=== PATIENT | female | born 1950 | race Caucasian/White ===

== ENCOUNTER 2019-09-11 16:24 | Inpatient (IN) | payer MEDICARE, OTHER ==
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
[~2019-09-11] VITALS: Ht 162.6 cm; Wt 100.2 kg
[~2019-09-11 16:24] MED LIST: ACET325T9 PO; ALBU2.5V8 IH; ASCO-72 PO; ASEN10TA9 SL; ATOR10TA60 PO; BISA10SU55 RC; BISA5TAB4 PO; CARB200T PO; CHOL2000 PO; CITA40TA5 PO; CLON0.5T4 PO; DEXT15DR10 OP; DEXT237L PO; DIVA500T4 PO; DOCU-109 PO; DOCU50CA11 PO; ESTR0.3T PO; FLUT10SP NS; FURO-68 PO; FURO80TA3 PO; FURO80TA72 PO; GABA-585 PO; GABA-586 PO; GABA300S PO; GUAI-40 PO; HALO100A2 IM; HALO5TAB IM; HALO5TAB PO; HALO5VIA2 IM; HYDR-2155 PO; HYDR-2678 PO; LEVE100020 PO; LEVE500T6 PO; LEVO25TA4 PO; LOPE2CAP PO; LOPE2CAP3 PO; LUBI8CAP4 PO; MAG-83 PO; MAGN24003 PO; MELA1TAB13 PO; MELA3TAB4 PO; MELO15TA23 PO; MENT118G TP; METH1TAB20 PO; METH29OI TP; MIRT15TA3 PO; MULT-245 PO; NYST15PO9 TP; OLAN5TAB3 PO; OMEP20CA16 PO; OMEP40CA2 PO; OXYC20TA35 PO; PANT40TA3 PO; POLY17PO5 PO; POTA20TA4 PO; POTA20TA84 PO; POTA40LI4 PO; QUET300T PO; RISP0.2519 PO; RISP1TAB43 PO; RISP2TAB33 PO; RISP3TAB23 PO; RISP4TAB35 PO; SERT50TA8 PO; SPIR50TA4 PO; SUCR1TAB35 PO; SULF5DRO OP; TOLN30CR2 TP; TRAZ150T49 PO; VIT1TABL32 PO
--- NOTE | 2019-09-11 16:55 | EKG ---
[address] [address] Test Date: 2019-09-11 Test Time: 16:48:31 Pat Name: ROBERTA MERLOS Department: Room: Gender: F Entry Level Financial Analyst: : 1950 Requested By: VANNESSA HUERTA Order Number: [id number] Reading MD: Measurements Intervals [place] Rate: 100 P: 48 HI: 144 QRS: 20 QRSD: 94 T: 25 QT: 342 QTc: 444 Interpretive Statements SINUS RHYTHM QRS(T) CONTOUR ABNORMALITY CONSIDER ANTEROLATERAL MYOCARDIAL DAMAGE POSSIBLY ABNORMAL ECG RI6.01 No previous ECG available for comparison
[2019-09-11 17:23] LABS: BASO # 0.1 x10^3/uL (0.0-0.2); BASO % 1 % (0-3); EOS # 0.1 x10^3/uL (0.0-0.7); EOS % 1 % (0-3); HEMATOCRIT 41.6 % (36.0-47.0); HEMOGLOBIN 13.8 g/dL (12.0-15.5); LYMPH % 28 % (24-48); MEAN CORPUSCULAR HEMOGLOBIN 32 pg (25-35); MEAN CORPUSCULAR HGB CONC 33 g/dL (31-37); MEAN CORPUSCULAR VOLUME 96 fL (79-100); MONO # 0.7 x10^3/uL (0.0-1.1); MONO % 10 % (0-9); NEUT # 4.3 x10^3uL (1.8-7.7); NEUT % 60 % (31-73); PLATELET COUNT 292 x10^3/uL (140-400); RED BLOOD COUNT 4.33 x10^6/uL (3.50-5.40); RED CELL DISTRIBUTION WIDTH 12.9 % (11.5-14.5); WHITE BLOOD COUNT 7.2 x10^3/uL (4.0-11.0)
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
[2019-09-11 18:15] LABS: CREATININE 0.9 mg/dL (0.6-1.0); GFR 62.1; POTASSIUM 3.9 mmol/L (3.5-5.1)
[2019-09-11 18:20] LABS: ALBUMIN 4.6 g/dL (3.4-5.0); ALBUMIN/GLOBULIN RATIO 1.1 (1.0-1.7); MAGNESIUM 1.9 mg/dL (1.8-2.4); TOTAL BILIRUBIN 0.3 mg/dL (0.2-1.0); TOTAL PROTEIN 8.8 g/dL (6.4-8.2)
[2019-09-11] MEDS ORDERED: HALO5SYR IM (18:51)
[2019-09-11] MEDS ORDERED: LEVO50TA5 PO (18:51)
[2019-09-11] MEDS ORDERED: AMYL1TAB PO (18:51)
[2019-09-11] MEDS ORDERED: FURO40TA4 PO (18:51)
[2019-09-11] MEDS ORDERED: POLY17PO5 PO (18:51)
[2019-09-11] MEDS ORDERED: DOCU-109 PO (18:51)
[2019-09-11] MEDS ORDERED: DICL100G18 TP (18:51)
[2019-09-11] MEDS ORDERED: ONDA4TAB7 PO (18:51)
[2019-09-11] MEDS ORDERED: FLUT9.9S NS (18:51)
[2019-09-11] MEDS ORDERED: AMIT50TA PO (18:51)
[2019-09-11] MEDS ORDERED: MONT10TA80 PO (18:51)
[2019-09-11] MEDS ORDERED: QUET400T7 PO (18:51)
[2019-09-11] MEDS ORDERED: POLY15DR27 OU (18:51)
[2019-09-11] MEDS ORDERED: DULO60CA6 PO (18:51)
[2019-09-11] MEDS ORDERED: DEXT30SU19 PO (18:51)
[2019-09-11] MEDS ORDERED: IPRA3AMP29 NEB (18:51)
[2019-09-11] MEDS ORDERED: MELO7.5T29 PO (18:51)
[2019-09-11] MEDS ORDERED: GABA-585 PO (18:51)
[2019-09-11] MEDS ORDERED: LORA-254 PO (18:51)
[2019-09-11] MEDS ORDERED: MAGNESIUM HYDROXIDE 2,400 MG/30 ML ORAL.SUSP. PO PRN (23:15)
[2019-09-11] MEDS ORDERED: METHYL SALICYLATE/MENTHOL TOPICAL OINTMENT 57GM TUBE. TP PRN (23:15)
[2019-09-11] MEDS ORDERED: LACT1CAP19 PO (23:44)
[2019-09-11] MEDS ORDERED: LUBI8CAP4 PO (23:44)
[2019-09-11] MEDS ORDERED: MAG HYDROX/AL HYDROX/SIMETH 30 ML ORAL.SUSP PO PRN (23:45)
[2019-09-11] MEDS ORDERED: [UNRECOGNIZED DRUG - OTHER] PO PRN (23:45)
[2019-09-11] MEDS ORDERED: NYSTATIN TOPICAL POWDER 15GM BOTTLE. TP PRN (23:45)
[2019-09-12] MEDS ORDERED: ALBUTEROL SULFATE 2.5 MG/3 ML NEBU. NEB PRN (00:15)
[2019-09-12] MEDS ORDERED: HALOPERIDOL LACT 5 MG/ML VIAL. IM PRN (00:15)
[2019-09-12 01:51] VITALS: BP 154/88
[2019-09-12 05:46] LABS: BACTERIA,URINE 0 /HPF (0-FEW); BILIRUBIN,URINE NEG (NEG); CLARITY,URINE CLEAR; COLOR,URINE YELLOW; GLUCOSE,URINE NEG (NEG); NITRITE,URINE NEG (NEG); RBC,URINE OCC /HPF (0-2); SQUAMOUS EPITHELIAL CELL,UR OCC /LPF; WBC,URINE OCC /HPF (0-4)
[2019-09-12 06:16] VITALS: BP 132/83
[2019-09-12] MEDS: PANTOPRAZOLE 40 MG TABLET. PO SCH (08:59)
[2019-09-12] MEDS ORDERED: LACTOBACILLUS RHAMNOSUS GG 1 CAPSULE. PO SCH (09:00)
[2019-09-12] MEDS: LORazepam 1 MG TABLET PO SCH ×4 (09:00→20:05)
[2019-09-12] MEDS: LACTOBACILLUS RHAMNOSUS GG 1 CAPSULE. PO SCH (09:00)
[2019-09-12] MEDS: FLUTICASONE 50MCG/NASAL SPRAY 16GM BOTTLE. NS SCH (09:00)
[2019-09-12] MEDS: ONDANSETRON ODT 4 MG TAB.RAPDIS PO SCH ×3 (09:00→16:26)
[2019-09-12] MEDS: DOCUSATE SODIUM 100 MG CAPSULE PO SCH ×2 (09:00→20:02)
[2019-09-12] MEDS: DICLOFENAC SODIUM 1% TOPICAL GEL 100GM TUBE. TP SCH ×3 (09:00→20:17)
[2019-09-12] MEDS: POLYVINYL ALCOHOL 1.4% OPHTH SOLUTION 15ML BOTTLE. OU SCH ×3 (09:00→20:02)
[2019-09-12] MEDS: MONTELUKAST 10 MG TABLET. PO SCH (09:01)
[2019-09-12] MEDS: DULoxetine HCL 30 MG CAPSULE.DR PO SCH (09:01)
[2019-09-12] MEDS: POTASSIUM CHLORIDE 20 MEQ TABLET.ER. PO SCH ×2 (09:01→20:02)
[2019-09-12] MEDS: MULTIVITAMIN I-VITE TABLET. PO SCH (09:01)
[2019-09-12] MEDS: POLYETHYLENE GLYCOL 3350 17 GM PACKET. PO SCH (09:01)
[2019-09-12] MEDS: MELOXICAM 7.5 MG TABLET PO SCH (09:01)
[2019-09-12] MEDS: FUROSEMIDE 40 MG TABLET PO SCH (09:01)
[2019-09-12] MEDS: CHOLECALCIFEROL (VITAMIN D3) 1,000 UNIT TABLET PO SCH (09:02)
[2019-09-12] MEDS: carBAMazepine 200 MG TABLET PO SCH ×2 (09:02→20:02)
[2019-09-12] MEDS: GABAPENTIN 100 MG CAPSULE. PO SCH (09:02)
[2019-09-12] MEDS: ASCORBIC ACID 500 MG TABLET PO SCH (09:02)
[2019-09-12] MEDS: LEVOTHYROXINE 50 MCG TABLET PO SCH (09:03)
[2019-09-12] MEDS ORDERED: guaiFENesin DM 200MG/20MG 10 ML SYRUP PO PRN (09:30)
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
[2019-09-12] MEDS ORDERED: HALOPERIDOL DECANOATE IM ER 100 MG/ML VIAL. IM SCH (15:00)
[2019-09-12 16:08] VITALS: BP 119/71
[2019-09-12 17:36] LABS: THYROID STIM HORMONE (TSH) 2.503 uIU/mL (0.358-3.740)
[2019-09-12] MEDS ORDERED: CHOLECALCIFEROL (VITAMIN D3) 50,000 UNIT CAPSULE PO SCH (18:30)
[2019-09-12] MEDS: QUEtiapine 100 MG TABLET. PO SCH (20:02)
[2019-09-12] MEDS: ATORVASTATIN CALCIUM 10 MG TABLET. PO SCH (20:02)
[2019-09-12] MEDS: AMITRIPTYLINE HCL 50 MG TABLET PO SCH (20:03)
[2019-09-12] MEDS: HALOPERIDOL DECANOATE IM ER 100 MG/ML VIAL. IM SCH (20:03)
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
--- NOTE | 2019-09-12 21:40 | PDOC ---
Exam Note: Liam Note: Please also refer to the separate dictated note~for this date of service dictated separately.~Patient seen individually. Discussed the patient with Nursing staff reviewed the chart.~Reviewed interim history and current functioning. Reviewed vital signs,~Labs/ Radiology~and current medications noted below. Continue current treatment with the changes noted in the dictated addendum note Assessment: Vital Signs/I&O: Vital Signs Date Time Temp Pulse Resp B/P (MAP) Pulse Ox O2 Delivery O2 Flow Rate FiO2 09/12/19 16:08 98.8 94 18 119/71 (87) 93 09/11/19 16:24 Room Air Labs: Laboratory Tests Test 09/12/19 05:00 09/12/19 05:25 Iron Level 45 ug/dL (50-170) L Total Iron Binding Capacity 349 ug/dL (250-450) Iron Saturation 13 % (15-34) L Urine Collection Type Unknown Urine Color Yellow Urine Clarity Clear Urine pH 6.5 Urine Specific [place] 1.020 Urine Protein Neg (NEG-TRACE) Urine Glucose (UA) Neg mg/dL (NEG) Urine Ketones (Stick) Neg mg/dL (NEG) Urine Blood Neg (NEG) Urine Nitrite Neg (NEG) Urine Bilirubin Neg (NEG) Urine Urobilinogen Dipstick 4.0 mg/dL (0.2 mg/dL) Urine Leukocyte Esterase Neg (NEG) Urine RBC Occ /HPF (0-2) Urine WBC Occ /HPF (0-4) Urine Squamous Epithelial Cells Occ /LPF Urine Bacteria 0 /HPF (0-FEW) Current Medications: Meds: Current Medications Medications (Trade) Dose Ordered Sig/Arden Route PRN Reason Start Time Stop Time Status Last Admin Dose Admin Lactobacillus Rhamnosus (Culturelle) 1 cap DAILY PO 09/12/19 09:00 09/16/19 09:01 09/12/19 09:00 Amitriptyline HCl (Elavil) 50 mg HS PO 09/12/19 21:00 09/12/19 20:03 Atorvastatin Calcium (Lipitor) 10 mg QHS PO 09/12/19 21:00 09/12/19 20:02 Carbamazepine (TEGretol) 200 mg BID PO 09/12/19 09:00 09/12/19 20:02 Docusate Sodium (Colace) 100 mg BID PO 09/12/19 09:00 09/12/19 20:02 Duloxetine HCl (Cymbalta) 90 mg DAILY PO 09/12/19 09:00 09/12/19 09:01 Furosemide (Lasix) 40 mg DAILY PO 09/12/19 09:00 09/12/19 09:01 Gabapentin (Neurontin) 100 mg DAILY PO 09/12/19 09:00 09/12/19 09:02 Levothyroxine Sodium (Synthroid) 50 mcg DAILYAC PO 09/12/19 07:30 09/12/19 09:03 Lorazepam (Ativan) 1 mg QID PO 09/12/19 09:00 09/12/19 20:05 Meloxicam (Mobic) 7.5 mg DAILY PO 09/12/19 09:00 09/12/19 09:01 Montelukast Sodium (Singulair) 10 mg DAILY PO 09/12/19 09:00 09/12/19 09:01 Pantoprazole Sodium (Protonix) 40 mg DAILYAC PO 09/12/19 07:30 09/12/19 08:59 Polyethylene Glycol (miraLAX) 17 gm DAILY PO 09/12/19 09:00 09/12/19 09:01 Artificial Tears (Artificial Tears) 1 drop TID OU 09/12/19 09:00 09/12/19 20:02 Potassium Chloride (Klor-Con) 20 meq BID PO 09/12/19 09:00 09/12/19 20:02 Multivitamins/ Minerals (I-Reyna) 1 tab DAILY PO 09/12/19 09:00 09/12/19 09:01 Ascorbic Acid (Vitamin C) 500 mg DAILY PO 09/12/19 09:00 09/12/19 09:02 Vitamin D (Vitamin D3) 2,000 unit DAILY PO 09/12/19 09:00 09/12/19 09:02 Ondansetron HCl (Zofran Odt) 4 mg TIDAC PO 09/12/19 07:30 09/12/19 16:26 Quetiapine Fumarate (SEROquel) 200 mg BID PO 09/12/19 21:00 09/12/19 20:02 Haloperidol Decanoate (Haldol Decanoate Im Extended Release) 100 mg Q4WK IM 09/12/19 21:00 09/12/19 20:03 I have reviewed the current psychotropics carefully including drug interactions. Risk benefit ratio favors no change other than as noted in my dictated progress note. Diagnosis: Problems: (1) Dementia with behavioral disturbance (2) Schizophrenia, schizo-affective type (3) Medical clearance for psychiatric admission (4) Anxiety disorder (5) Impulse control disorder (6) Schizophrenia, paranoid, chronic with acute exacerbation ANNMARIE ROMERO MD Sep 12, 2019 21:40
--- NOTE | 2019-09-12 21:41 | NUR ---
Nsg Note: Patient in room at time of medication administration and assessments. Patient was calm, compliant, flat, monotone and cooperative with cares. Patient kept asking, "can I go back to sleep yet?" No other notable behaviors at this time.
[2019-09-12 22:07] LABS: HEMOGLOBIN A1C 5.5 % (4.8-5.6)
[2019-09-13] MEDS ORDERED: traZODone 50 MG TABLET. PO PRN
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
[2019-09-13 06:28] VITALS: BP 130/85
[2019-09-13] MEDS: DULoxetine HCL 30 MG CAPSULE.DR PO SCH (08:55)
[2019-09-13] MEDS: MONTELUKAST 10 MG TABLET. PO SCH (08:55)
[2019-09-13] MEDS: GABAPENTIN 100 MG CAPSULE. PO SCH (08:55)
[2019-09-13] MEDS: FUROSEMIDE 40 MG TABLET PO SCH (08:55)
[2019-09-13] MEDS: MELOXICAM 7.5 MG TABLET PO SCH (08:56)
[2019-09-13] MEDS: QUEtiapine 100 MG TABLET. PO SCH (08:56)
[2019-09-13] MEDS: ONDANSETRON ODT 4 MG TAB.RAPDIS PO SCH ×3 (08:56→17:07)
[2019-09-13] MEDS: LORazepam 1 MG TABLET PO SCH ×4 (08:56→20:31)
[2019-09-13] MEDS: carBAMazepine 200 MG TABLET PO SCH ×2 (08:57→20:32)
[2019-09-13] MEDS: PANTOPRAZOLE 40 MG TABLET. PO SCH (08:57)
[2019-09-13] MEDS: LEVOTHYROXINE 50 MCG TABLET PO SCH (08:57)
[2019-09-13] MEDS: POTASSIUM CHLORIDE 20 MEQ TABLET.ER. PO SCH ×2 (08:57→20:32)
[2019-09-13] MEDS: POLYETHYLENE GLYCOL 3350 17 GM PACKET. PO SCH (08:57)
[2019-09-13] MEDS: POLYVINYL ALCOHOL 1.4% OPHTH SOLUTION 15ML BOTTLE. OU SCH ×2 (09:00→14:00)
[2019-09-13] MEDS: AMITIZA 8 MCG PO SCH (09:00)
[2019-09-13] MEDS: DOCUSATE SODIUM 100 MG CAPSULE PO SCH ×2 (09:00→20:32)
[2019-09-13] MEDS: DICLOFENAC SODIUM 1% TOPICAL GEL 100GM TUBE. TP SCH ×2 (09:00→14:00)
[2019-09-13] MEDS: FLUTICASONE 50MCG/NASAL SPRAY 16GM BOTTLE. NS SCH (09:00)
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
[2019-09-13] MEDS: MULTIVITAMIN I-VITE TABLET. PO SCH (11:51)
[2019-09-13] MEDS: LACTOBACILLUS RHAMNOSUS GG 1 CAPSULE. PO SCH (11:51)
[2019-09-13] MEDS: CHOLECALCIFEROL (VITAMIN D3) 1,000 UNIT TABLET PO SCH (11:51)
[2019-09-13] MEDS: ASCORBIC ACID 500 MG TABLET PO SCH (11:51)
[2019-09-13] MEDS: CHOLECALCIFEROL (VITAMIN D3) 50,000 UNIT CAPSULE PO SCH (11:52)
--- NOTE | 2019-09-13 13:04 | NUR ---
Patient has been calm, compliant, drowsy, and confused during this shift. She left breakfast early, complaining of not feeling well. She complained of an upset stomach and pain 8/10, but would not pinpoint where the pain is located. Patient oriented to self and in [place], she could not state the name of the hospital, the day/date, or that she was in hospital. She was withdrawn to bed until PT worked with her then she was up in the day room, sitting in her wheelchair, and very drowsy. Will continue to monitor and report to oncoming shift.
--- NOTE | 2019-09-13 15:16 | NUR ---
CECILY spoke to Salazar, Nurse at [facility], regarding pt. information for psychosocial. CECILY will update Salazar on 09/16/2019 after treatment team.
[2019-09-13 15:45] VITALS: BP 125/79
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
[2019-09-13] MEDS ORDERED: POLYVINYL ALCOHOL 1.4% OPHTH SOLUTION 15ML BOTTLE. OU PRN (17:00)
[2019-09-13] MEDS ORDERED: FLUTICASONE 50MCG/NASAL SPRAY 16GM BOTTLE. NS PRN (17:00)
[2019-09-13 19:07] LABS: THYROXINE 7.2 ug/dL (4.5-12.0)
[2019-09-13 19:27] LABS: CARBAM 5.7 mcg/mL (4.0-12.0)
[2019-09-13] MEDS: AMITRIPTYLINE HCL 50 MG TABLET PO SCH (20:32)
[2019-09-13] MEDS: ATORVASTATIN CALCIUM 10 MG TABLET. PO SCH (20:32)
[2019-09-13] MEDS: risperiDONE 1 MG TABLET. PO SCH (20:35)
--- NOTE | 2019-09-13 20:48 | NUR ---
PATIENT IS LOCATED IN PT ROOM AT TIME OF ASSESSMENT AND MEDICATION ADMINISTRATION. PATIENT IS FLAT BUT CALM AND COMPLIANT. PATIENT C/O SOME STOMACH PAIN. PT STATES SHE THINKS IT MAY BE GAS PAINS. PATIENT IS COMPLIANT WITH MEDICATIONS WHOLE WITH WATER. PT DID HAVE SOME DIFFICULTY SWALLOWING HER POTASSIUM. WHILE ASSESSING PATIENT THIS NURSE NOTICED THAT PATIENTS BLE ARE RED AND HOT TO THE TOUCH. PATIENT REPORTS PAIN AT THE SITE. PATIENT ADDED TO DR. VERNON'S LIST TOMORROW. PATIENT IS RESTING IN BED AT THIS TIME. WILL CONTINUE TO MONITOR.
--- NOTE | 2019-09-13 21:21 | PDOC ---
Exam Note: Liam Note: Please also refer to the separate dictated note~for this date of service dictated separately.~Patient seen individually. Discussed the patient with Nursing staff reviewed the chart.~Reviewed interim history and current functioning. Reviewed vital signs,~Labs/ Radiology~and current medications noted below. Continue current treatment with the changes noted in the dictated addendum note Assessment: Vital Signs/I&O: Vital Signs Date Time Temp Pulse Resp B/P (MAP) Pulse Ox O2 Delivery O2 Flow Rate FiO2 09/13/19 15:45 98.2 96 18 125/79 (94) 96 09/11/19 16:24 Room Air I & O 09/12/19 09/12/19 09/13/19 15:00 23:00 07:00 Intake Total 720 ml 580 ml Balance 720 ml 580 ml Labs: Laboratory Tests Test 09/13/19 09:40 Prothrombin Time 10.0 SEC (9.4-11.4) Prothrombin Time INR 1.0 (0.9-1.1) Ammonia 15 mcmol/L (11-34) Thyroxine (T4) 7.2 ug/dL (4.5-12.0) Total Triiodothyronine (TT3) 74 ng/dL (71-180) Carbamazepine (Tegretol) Level 5.7 mcg/mL (4.0-12.0) Carbamazepine Last Dose Date 09/11/19 Carbamazepine Last Dose Time 2100 Current Medications: Meds: Current Medications Medications (Trade) Dose Ordered Sig/Arden Route PRN Reason Start Time Stop Time Status Last Admin Dose Admin Vitamin D (Vitamin D3) 50,000 unit WEEKLY PO 09/13/19 12:00 09/13/19 11:52 Risperidone (RisperDAL) 1 mg QHS PO 09/13/19 21:00 09/13/19 20:35 I have reviewed the current psychotropics carefully including drug interactions. Risk benefit ratio favors no change other than as noted in my dictated progress note. Diagnosis: Problems: (1) Dementia with behavioral disturbance (2) Schizophrenia, schizo-affective type (3) Medical clearance for psychiatric admission (4) Anxiety disorder (5) Impulse control disorder (6) Schizophrenia, paranoid, chronic with acute exacerbation ANNMARIE ROMERO MD Sep 13, 2019 21:21
[2019-09-14] MEDS: LEVOTHYROXINE 50 MCG TABLET PO SCH (05:56)
[2019-09-14] MEDS: PANTOPRAZOLE 40 MG TABLET. PO SCH (05:56)
[2019-09-14 06:01] VITALS: BP 149/73
[2019-09-14] MEDS ORDERED: LUBIPROSTONE 8 MCG CAPSULE PO ONE (08:00)
[2019-09-14] MEDS: DULoxetine HCL 30 MG CAPSULE.DR PO SCH (08:25)
[2019-09-14] MEDS: LACTOBACILLUS RHAMNOSUS GG 1 CAPSULE. PO SCH (08:25)
[2019-09-14] MEDS: GABAPENTIN 100 MG CAPSULE. PO SCH (08:25)
[2019-09-14] MEDS: MELOXICAM 7.5 MG TABLET PO SCH (08:26)
[2019-09-14] MEDS: ASCORBIC ACID 500 MG TABLET PO SCH (08:26)
[2019-09-14] MEDS: LORazepam 1 MG TABLET PO SCH ×4 (08:26→20:43)
[2019-09-14] MEDS: FUROSEMIDE 40 MG TABLET PO SCH (08:26)
[2019-09-14] MEDS: DOCUSATE SODIUM 100 MG CAPSULE PO SCH ×2 (08:27→20:43)
[2019-09-14] MEDS: AMITIZA 8 MCG PO SCH (08:27)
[2019-09-14] MEDS: carBAMazepine 200 MG TABLET PO SCH ×2 (08:27→20:44)
[2019-09-14] MEDS: ONDANSETRON ODT 4 MG TAB.RAPDIS PO SCH ×3 (08:31→18:40)
[2019-09-14] MEDS: POLYETHYLENE GLYCOL 3350 17 GM PACKET. PO SCH (08:31)
[2019-09-14] MEDS: MULTIVITAMIN I-VITE TABLET. PO SCH (08:31)
[2019-09-14] MEDS: MONTELUKAST 10 MG TABLET. PO SCH (08:31)
[2019-09-14] MEDS: POTASSIUM CHLORIDE 20 MEQ TABLET.ER. PO SCH ×2 (08:32→20:43)
--- NOTE | 2019-09-14 10:59 | NUR ---
Patient calm but withdrawn in dining room at breakfast this morning. Patient requested to be "next" to get her morning medication. Patient cooperative, calm and compliant with medications. Patient observed to be crying in her room at around 1015. Nurse sat with patient and asked what was wrong, patient stated she was heartbroken and began sobbing loudly. She answered nurse and said she is heartbroken about her divorce that she estimates happened around 4 years ago. Nurse provided kleenex and adjusted patients bed per her request. Patient stated she wants to call her ex- but that she doesn't know the number. [facility] does not have the number in her file. Will continue to monitor.
--- NOTE | 2019-09-14 13:17 | NUR ---
Activity Therapy Assessment Completed based on notes, observation, and attempted interview. Therapist caught patient on her way to her room and asked to chat. Pt. agreed and had difficulty answering all the questions. In the middle, Pt. stated 'I am tired and want to lay down. Can we talk later?" Therapist complied and asked MILK TREATER to assist with putting Pt. to bed. Pt. uses a wheelchair to ambulate and needs support from others with ADLs and transitions. Pt. has been calm and compliant since admit but also drowsy, withdrawn, and disengaged with a flat affect. Pt. has reported having hallucinations, both audio and visual, as well. Pt. is from [facility] and states she 'thinks her is ' and she has 'four children' she talks to on the phone. Pt. was unable to recall her or children's names. Pt. is aware she is in [place] but needed reminders that she is in the hospital. Pt. was unable to state why she was admitted. Pt. recalled growing up with two siblings but was unsure if they were still alive. 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 Pt. does not recall her previous [facility] admission. Pt. seems to have little interest in activities or socializing with peers as she sleeps often and sits alone. Initial goal aimed to increase socialization and engagement: Pt. will participate in at least three Activity Therapy groups or individual sessions before discharge. Addendum: 09/29/19 at 1219 by JEFFREY FAUSTIN ACT Goal changed 09/29/2019: Pt. will participate in at least five Activity Therapy groups per week.
[2019-09-14 15:54] VITALS: BP 150/84
[2019-09-14] MEDS: risperiDONE 1 MG TABLET. PO SCH (20:43)
[2019-09-14] MEDS: AMITRIPTYLINE HCL 50 MG TABLET PO SCH (20:43)
[2019-09-14] MEDS: ATORVASTATIN CALCIUM 10 MG TABLET. PO SCH (20:43)
--- NOTE | 2019-09-14 21:48 | PDOC ---
Exam Note: Liam Note: Please also refer to the separate dictated note~for this date of service dictated separately.~Patient seen individually. Discussed the patient with Nursing staff reviewed the chart.~Reviewed interim history and current functioning. Reviewed vital signs,~Labs/ Radiology~and current medications noted below. Continue current treatment with the changes noted in the dictated addendum note Assessment: Vital Signs/I&O: Vital Signs Date Time Temp Pulse Resp B/P (MAP) Pulse Ox O2 Delivery O2 Flow Rate FiO2 09/14/19 15:54 98.2 92 16 150/84 (106) 97 09/14/19 06:01 Room Air I & O 09/13/19 09/13/19 09/14/19 15:00 23:00 07:00 Intake Total 720 ml 240 ml 240 ml Balance 720 ml 240 ml 240 ml Current Medications: Meds: Current Medications Medications (Trade) Dose Ordered Sig/Arden Route PRN Reason Start Time Stop Time Status Last Admin Dose Admin Carbamazepine (TEGretol) 400 mg HS PO 09/14/19 21:00 09/14/19 20:44 I have reviewed the current psychotropics carefully including drug interactions. Risk benefit ratio favors no change other than as noted in my dictated progress note. Diagnosis: Problems: (1) Dementia with behavioral disturbance (2) Schizophrenia, schizo-affective type (3) Anxiety disorder (4) Impulse control disorder (5) Schizophrenia, paranoid, chronic with acute exacerbation ANNMARIE ROMERO MD Sep 14, 2019 21:48
--- NOTE | 2019-09-14 23:20 | PN ---
DATE: 09/13/2019 PSYCHIATRIC PROGRESS NOTE This late entry 09/13/2019 covers the elements not covered in my initial note. SUBJECTIVE: I met with the patient in the evening of 09/13/2019. Per ELISABET Alcocer, the patient slept 10 hours previous night. The day before, she was hearing guns and seeing cats and dogs, but none of that was verbalized by her during the day to nursing staff or to me in the evening as I met with her at length. She was in bed, but intermittently psychotic. REVIEW OF SYSTEMS: Positive for tiredness. No CV, , pulmonary, eye system symptoms on review. MENTAL STATUS EXAM: Oriented to herself and situation. Speech has some latency, coherent. Abstraction fair, computation impaired, language function intact, attention span short. Mood and affect remains withdrawn, intermittently quite psychotic. LABORATORY DATA: Reviewed. IMPRESSION: Schizoaffective disorder, bipolar type, mixed with psychotic features; anxiety disorder, unspecified; impulse control disorder, unspecified. PLAN: Change Seroquel XR 400 mg at bedtime to Risperdal 1 mg at bedtime. Continue amitriptyline 50 mg at bedtime, Tegretol is 200 b.i.d. await the level, then adjust to reach therapeutic level. Continue Cymbalta 90 mg a day, Haldol Decanoate as before. Ativan 1 mg 4 times a day. Rest unchanged. MAN Allyssa ROMERO MD DR: KAMILLE/taya JOB#: [id number] / [id number]
--- NOTE | 2019-09-14 23:44 | NUR ---
Nsg Note: Patient was in room at time of medication administration and assessments. Patient was calm, compliant and cooperative. Patient was wandering the halls in wheelchair before bed. No other notable behaviors at this time.
[2019-09-15 06:18] VITALS: BP 132/84
[2019-09-15] MEDS ORDERED: LUBIPROSTONE 8 MCG CAPSULE PO ONE (08:00)
[2019-09-15] MEDS: LACTOBACILLUS RHAMNOSUS GG 1 CAPSULE. PO SCH (08:40)
[2019-09-15] MEDS: DULoxetine HCL 30 MG CAPSULE.DR PO SCH (08:40)
[2019-09-15] MEDS: LORazepam 1 MG TABLET PO SCH ×4 (08:41→19:57)
[2019-09-15] MEDS: ONDANSETRON ODT 4 MG TAB.RAPDIS PO SCH ×3 (08:41→17:14)
[2019-09-15] MEDS: PANTOPRAZOLE 40 MG TABLET. PO SCH (08:42)
[2019-09-15] MEDS: MULTIVITAMIN I-VITE TABLET. PO SCH (08:43)
[2019-09-15] MEDS: LEVOTHYROXINE 50 MCG TABLET PO SCH (08:43)
[2019-09-15] MEDS: POTASSIUM CHLORIDE 20 MEQ TABLET.ER. PO SCH ×2 (08:43→19:55)
[2019-09-15] MEDS: MELOXICAM 7.5 MG TABLET PO SCH (08:44)
[2019-09-15] MEDS: POLYETHYLENE GLYCOL 3350 17 GM PACKET. PO SCH (08:44)
[2019-09-15] MEDS: GABAPENTIN 100 MG CAPSULE. PO SCH (08:44)
[2019-09-15] MEDS: FUROSEMIDE 40 MG TABLET PO SCH (08:44)
[2019-09-15] MEDS: MONTELUKAST 10 MG TABLET. PO SCH (08:44)
[2019-09-15] MEDS: DOCUSATE SODIUM 100 MG CAPSULE PO SCH ×3 (08:45→19:59)
[2019-09-15] MEDS: carBAMazepine 200 MG TABLET PO SCH ×2 (08:45→19:57)
[2019-09-15] MEDS: ASCORBIC ACID 500 MG TABLET PO SCH (08:45)
[2019-09-15] MEDS: AMITIZA 8 MCG PO SCH (09:00)
--- NOTE | 2019-09-15 11:51 | NUR ---
WEEKLY ACTIVITY THERAPY NOTE Date of Admission: 09/11/2019 Date of AT Assessment: 09/14/2019 Goal aimed: to increase engagement and socialization Initial goal: Pt. will participate in at least three Activity Therapy groups or individual sessions before discharge. 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
--- NOTE | 2019-09-15 13:31 | NUR ---
Patient was in the hallway during morning rounding, took medications, allowed for morning assessment. Patient denies pain, said she was feeling anxious this morning, received scheduled Ativan. Patient denies pain at this time. Will continue to monitor.
[2019-09-15] MEDS: HYDROcodone/APAP 5/325MG 1 TAB TABLET PO PRN ×3 (14:02→21:10)
--- NOTE | 2019-09-15 14:31 | NUR ---
Patient approached the nurse and mentioned having a headache. Patient asked for her pain medication, PRN lortab given @1402. Patient is feeling much better, is wheeling down the hallway and singing. Will continue to monitor.
[2019-09-15 16:16] VITALS: BP 148/76
--- NOTE | 2019-09-15 17:30 | NUR ---
Patient mentioned to the nurse that she was in pain, asked for PRN lortab. This was given at 1716. Patient is now eating dinner, will continue to monitor.
[2019-09-15] MEDS: risperiDONE 1 MG TABLET. PO SCH (19:56)
[2019-09-15] MEDS: AMITRIPTYLINE HCL 50 MG TABLET PO SCH (19:57)
[2019-09-15] MEDS: ATORVASTATIN CALCIUM 10 MG TABLET. PO SCH (19:57)
[2019-09-15] MEDS: MAG HYDROX/AL HYDROX/SIMETH 30 ML ORAL.SUSP PO PRN (20:01)
[2019-09-15] MEDS: DICLOFENAC SODIUM 1% TOPICAL GEL 100GM TUBE. TP PRN (20:04)
--- NOTE | 2019-09-15 21:11 | NUR ---
Pt sitting in the day room at shift change. Pt with a flat affect, suspicious of medications when approached. Pt cooperative with assessment and compliant with medications after this nurse explained each medication and it's use. PRN Voltaren gel and PRN Hydrocodone administered for c/o bilateral knee pain.
--- NOTE | 2019-09-15 21:24 | PDOC ---
Exam Note: Liam Note: Please also refer to the separate dictated note~for this date of service dictated separately.~Patient seen individually. Discussed the patient with Nursing staff reviewed the chart.~Reviewed interim history and current functioning. Reviewed vital signs,~Labs/ Radiology~and current medications noted below. Continue current treatment with the changes noted in the dictated addendum note Assessment: Vital Signs/I&O: Vital Signs Date Time Temp Pulse Resp B/P (MAP) Pulse Ox O2 Delivery O2 Flow Rate FiO2 09/15/19 18:16 97 09/15/19 16:16 97.9 88 18 148/76 (100) Room Air I & O 09/14/19 09/14/19 09/15/19 15:00 23:00 07:00 Intake Total 720 ml 120 ml 240 ml Balance 720 ml 120 ml 240 ml Current Medications: Meds: Current Medications Medications (Trade) Dose Ordered Sig/Arden Route PRN Reason Start Time Stop Time Status Last Admin Dose Admin Carbamazepine (TEGretol) 200 mg DAILY PO 09/15/19 09:00 09/15/19 08:45 I have reviewed the current psychotropics carefully including drug interactions. Risk benefit ratio favors no change other than as noted in my dictated progress note. Diagnosis: Problems: (1) Dementia with behavioral disturbance (2) Schizophrenia, schizo-affective type (3) Anxiety disorder (4) Impulse control disorder (5) Schizophrenia, paranoid, chronic with acute exacerbation ANNMARIE ROMERO MD Sep 15, 2019 21:24
--- NOTE | 2019-09-15 23:21 | PN ---
DATE: 09/14/2019 PSYCHIATRIC PROGRESS NOTE This late entry 09/14/2019 covers elements not covered in my initial note. SUBJECTIVE: I met with the patient evening of 09/14/2019. Per ELISABET Mcelroy, the patient slept 8 hours previous night. She has been tearful, sobbing at times, misses her ex-, Niels and guilty that she should not have him. She talked to Niels on the telephone. Tegretol level is 5.7, on Tegretol 200 mg b.i.d. REVIEW OF SYSTEMS: Ambulation impaired, in wheelchair. No CV, , pulmonary, eye, ENT system symptoms on review. MENTAL STATUS EXAMINATION: Reasonably oriented. Speech has some latency, coherent. Abstraction fair, computation impaired, language function intact, attention span short. Mood and affect somewhat withdrawn, labile at times. LABORATORY DATA: Reviewed. IMPRESSION: Schizoaffective disorder, bipolar type, mixed with psychotic features. Rest unchanged. PLAN: Increase Tegretol to 200 mg a.m., 400 at bedtime. Check CBC, CMP, Tegretol level in 3 days since prior level is 5.7, subtherapeutic on 200 b.i.d. Maintain Haldol Decanoate, amitriptyline, Cymbalta, trazodone, along with Ativan and Risperdal. Adjust further as clinically indicated. MAN Allyssa ROMERO MD DR: KAMILLE/taya JOB#: [id number] / [id number]
[2019-09-16] MEDS: HYDROcodone/APAP 5/325MG 1 TAB TABLET PO PRN ×5 (03:29→21:27)
[2019-09-16 06:22] VITALS: BP 112/71
[2019-09-16] MEDS: DICLOFENAC SODIUM 1% TOPICAL GEL 100GM TUBE. TP PRN (07:59)
[2019-09-16] MEDS: GABAPENTIN 100 MG CAPSULE. PO SCH (07:59)
[2019-09-16] MEDS: ONDANSETRON ODT 4 MG TAB.RAPDIS PO SCH ×3 (08:00→17:32)
[2019-09-16] MEDS: DULoxetine HCL 30 MG CAPSULE.DR PO SCH (08:00)
[2019-09-16] MEDS: POTASSIUM CHLORIDE 20 MEQ TABLET.ER. PO SCH ×2 (08:00→19:33)
[2019-09-16] MEDS: LACTOBACILLUS RHAMNOSUS GG 1 CAPSULE. PO SCH (08:00)
[2019-09-16] MEDS ORDERED: LUBIPROSTONE 8 MCG CAPSULE PO ONE (08:00)
[2019-09-16] MEDS: carBAMazepine 200 MG TABLET PO SCH ×2 (08:00→19:33)
[2019-09-16] MEDS: MONTELUKAST 10 MG TABLET. PO SCH (08:00)
[2019-09-16] MEDS: DOCUSATE SODIUM 100 MG CAPSULE PO SCH ×2 (08:01→19:33)
[2019-09-16] MEDS: ASCORBIC ACID 500 MG TABLET PO SCH (08:01)
[2019-09-16] MEDS: PANTOPRAZOLE 40 MG TABLET. PO SCH (08:01)
[2019-09-16] MEDS: AMITIZA 8 MCG PO SCH (08:01)
[2019-09-16] MEDS: LORazepam 1 MG TABLET PO SCH ×4 (08:01→19:34)
[2019-09-16] MEDS: MELOXICAM 7.5 MG TABLET PO SCH (08:01)
[2019-09-16] MEDS: MULTIVITAMIN I-VITE TABLET. PO SCH (08:01)
[2019-09-16] MEDS: LEVOTHYROXINE 50 MCG TABLET PO SCH (08:01)
[2019-09-16] MEDS: FUROSEMIDE 40 MG TABLET PO SCH (08:02)
[2019-09-16] MEDS: POLYETHYLENE GLYCOL 3350 17 GM PACKET. PO SCH (08:02)
[2019-09-16] MEDS: NYSTATIN TOPICAL POWDER 15GM BOTTLE. TP SCH ×2 (13:00→19:32)
--- NOTE | 2019-09-16 13:46 | NUR ---
CECILY contacted Salazar, Nurse at [facility], to give him an update on pt. progress. Addendum: 09/16/19 at 1400 by JOSE TONY Pt. was present for treatment team.
--- NOTE | 2019-09-16 13:52 | NUR ---
Patient is alert and oriented x3. When asked why she is in the hospital, pt responds, "I don't know". Compliant with cares and medications. Pt told this nurse that she is has AIDs and is dying from it. Pt also told this nurse that Zane was done with her and she needed to leave. Pt is demanding, and impatient. Has asked for multiple things and wants it that instant. Pt is attention seeking, telling people that she is dying. Pt reports she has itching in groin and her bottom hurts, asking for powder. Pt has small yeasty rash in groin, nystatin powder ordered per Dr Hunt. Cream applied to buttocks crack for redness, pt had stool left in there which was most likely the cause of the pain and redness. Plan is to continue medication management and encourage participation in groups. WCTM.
[2019-09-16 15:52] VITALS: BP 123/66
[2019-09-16] MEDS: AMITRIPTYLINE HCL 50 MG TABLET PO SCH (19:33)
[2019-09-16] MEDS: ATORVASTATIN CALCIUM 10 MG TABLET. PO SCH (19:33)
[2019-09-16] MEDS: risperiDONE 1 MG TABLET. PO SCH (19:34)
--- NOTE | 2019-09-16 20:31 | PN ---
DATE: 09/15/2019 PSYCHIATRIC PROGRESS NOTE This late entry 09/15/2019 covers elements not covered in my initial note. SUBJECTIVE: Per ELISABET Fabian, the patient slept 6 hours previous night. She received pain medications at 2:00 p.m. since quite suspicious and paranoid of her medications. I met with her in the evening. REVIEW OF SYSTEMS: Ambulation impaired, in wheelchair. No CV, , pulmonary, eye system symptoms on review. MENTAL STATUS EXAM: Oriented to herself and situation. Speech has some latency, coherent. Abstraction fair, computation impaired, language function intact, attention span short. Mood and affect somewhat anxious, labile. LABORATORY DATA: Reviewed. IMPRESSION: Unchanged from initial note. Schizoaffective disorder, bipolar type, mixed with psychotic features. Rest unchanged. PLAN: No change from initial note. MAN Allyssa ROMERO MD DR: KAMILLE/taya JOB#: [id number] / [id number]
--- NOTE | 2019-09-16 21:25 | PDOC ---
Exam Note: Liam Note: Please also refer to the separate dictated note~for this date of service dictated separately.~Patient seen individually. Discussed the patient with Nursing staff reviewed the chart.~Reviewed interim history and current functioning. Reviewed vital signs,~Labs/ Radiology~and current medications noted below. Continue current treatment with the changes noted in the dictated addendum note Assessment: Vital Signs/I&O: Vital Signs Date Time Temp Pulse Resp B/P (MAP) Pulse Ox O2 Delivery O2 Flow Rate FiO2 09/16/19 17:33 98 09/16/19 15:52 98.0 81 20 123/66 (85) 09/15/19 16:16 Room Air I & O 09/15/19 09/15/19 09/16/19 15:00 23:00 07:00 Intake Total 960 ml 240 ml 240 ml Balance 960 ml 240 ml 240 ml Current Medications: Meds: Current Medications Medications (Trade) Dose Ordered Sig/Arden Route PRN Reason Start Time Stop Time Status Last Admin Dose Admin Nystatin (Nystop) 1 jessica BID TP 09/16/19 13:00 09/16/19 19:32 Risperidone (RisperDAL) 1.5 mg QHS PO 09/16/19 21:00 09/16/19 19:34 I have reviewed the current psychotropics carefully including drug interactions. Risk benefit ratio favors no change other than as noted in my dictated progress note. Diagnosis: Problems: (1) Dementia with behavioral disturbance (2) Schizophrenia, schizo-affective type (3) Anxiety disorder (4) Impulse control disorder (5) Schizophrenia, paranoid, chronic with acute exacerbation ANNMARIE ROMERO MD Sep 16, 2019 21:25
--- NOTE | 2019-09-17 02:40 | NUR ---
Last evening pt was tired and wanted to go to bed. She is well oriented and took meds without difficulty. PRN pain med given and she has been sleeping well. When asked why she is here she said she does not know but would like to find out.
[2019-09-17] MEDS: LEVOTHYROXINE 50 MCG TABLET PO SCH (05:46)
[2019-09-17] MEDS: HYDROcodone/APAP 5/325MG 1 TAB TABLET PO PRN ×5 (05:46→23:04)
[2019-09-17 06:02] VITALS: BP 134/81
[2019-09-17] MEDS ORDERED: LUBIPROSTONE 8 MCG CAPSULE PO ONE (08:00)
[2019-09-17] MEDS: FUROSEMIDE 40 MG TABLET PO SCH (08:24)
[2019-09-17] MEDS: PANTOPRAZOLE 40 MG TABLET. PO SCH (08:24)
[2019-09-17] MEDS: DULoxetine HCL 30 MG CAPSULE.DR PO SCH (08:24)
[2019-09-17] MEDS: ONDANSETRON ODT 4 MG TAB.RAPDIS PO SCH ×3 (08:24→17:11)
[2019-09-17] MEDS: MONTELUKAST 10 MG TABLET. PO SCH (08:25)
[2019-09-17] MEDS: AMITIZA 8 MCG PO SCH (08:25)
[2019-09-17] MEDS: ASCORBIC ACID 500 MG TABLET PO SCH (08:25)
[2019-09-17] MEDS: MULTIVITAMIN I-VITE TABLET. PO SCH (08:25)
[2019-09-17] MEDS: GABAPENTIN 100 MG CAPSULE. PO SCH (08:26)
[2019-09-17] MEDS: carBAMazepine 200 MG TABLET PO SCH ×2 (08:26→23:05)
[2019-09-17] MEDS: MELOXICAM 7.5 MG TABLET PO SCH (08:26)
[2019-09-17] MEDS: LORazepam 1 MG TABLET PO SCH ×4 (08:26→23:05)
[2019-09-17] MEDS: POTASSIUM CHLORIDE 20 MEQ TABLET.ER. PO SCH ×2 (08:26→23:04)
[2019-09-17] MEDS: DOCUSATE SODIUM 100 MG CAPSULE PO SCH ×2 (08:28→23:04)
[2019-09-17] MEDS: POLYETHYLENE GLYCOL 3350 17 GM PACKET. PO SCH (08:29)
[2019-09-17] MEDS: NYSTATIN TOPICAL POWDER 15GM BOTTLE. TP SCH ×2 (09:00→23:04)
--- NOTE | 2019-09-17 11:10 | NUR ---
Patient alert and oriented x3. Patient upset this morning when she wasn't the first patient to get her meds, did not like waiting her turn and began "choking" saying she needed her stomach meds. Pt given lortab for pain at 0928. Pt asked why people acted like they didn't want to give her medications. RN reminded patient her medicaton wasn't due until 0930 and it was being given at 0928. Pt stated this morning RN didn't give her medications right when she wanted them and thinks nursing does not want to give her medications. Later patient approached RN asking why she lied about giving the pain pill, states RN gave her a collapsed capsule instead of pain pill. RN informed patient that she received a tablet not a capsule. Pt called nurse a liar. Pt has been crying up and down the halls about seeing Zane being crucified and that God knows the nurse is a liar and didn't give her the right medications. PIA.
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
[2019-09-17 16:06] VITALS: BP 127/80
--- NOTE | 2019-09-17 17:42 | NUR ---
Patient repeatedly coughing at dinner, came out to nursing station demanding that RN give her the stomach pill she needs. This was already administered but patient states RN is lying again and she didn't get it. Pt states she will keep coughing until she gets her pill, patient was directed to her room.
--- NOTE | 2019-09-17 22:05 | PDOC ---
Exam Note: Liam Note: Please also refer to the separate dictated note~for this date of service dictated separately.~Patient seen individually. Discussed the patient with Nursing staff reviewed the chart.~Reviewed interim history and current functioning. Reviewed vital signs,~Labs/ Radiology~and current medications noted below. Continue current treatment with the changes noted in the dictated addendum note Assessment: Vital Signs/I&O: Vital Signs Date Time Temp Pulse Resp B/P (MAP) Pulse Ox O2 Delivery O2 Flow Rate FiO2 09/17/19 17:11 97 09/17/19 16:06 98.0 92 18 127/80 (96) 09/17/19 05:46 Room Air I & O 09/16/19 09/16/19 09/17/19 15:00 23:00 07:00 Intake Total 720 ml 120 ml Balance 720 ml 120 ml Current Medications: I have reviewed the current psychotropics carefully including drug interactions. Risk benefit ratio favors no change other than as noted in my dictated progress note. Diagnosis: Problems: (1) Dementia with behavioral disturbance (2) Schizophrenia, schizo-affective type (3) Hypokalemia due to inadequate potassium intake (4) Hypokalemia (5) Medical clearance for psychiatric admission (6) Anxiety disorder (7) Impulse control disorder (8) Schizophrenia, paranoid, chronic with acute exacerbation ANNMARIE ROMERO MD Sep 17, 2019 22:05
[2019-09-17] MEDS: AMITRIPTYLINE HCL 50 MG TABLET PO SCH (23:03)
[2019-09-17] MEDS: ATORVASTATIN CALCIUM 10 MG TABLET. PO SCH (23:04)
[2019-09-17] MEDS: risperiDONE 1 MG TABLET. PO SCH (23:05)
--- NOTE | 2019-09-18 00:01 | NUR ---
At meds pass pt refused all meds later on she did request and took them. She said we are going to kill her and that she has aids and has been smearing her blood all over the hospital so we would get sick and . She also said that Zane And God are staying in her room tonight. Extra blanket and pillow provided.
[2019-09-18] MEDS: HYDROcodone/APAP 5/325MG 1 TAB TABLET PO PRN ×2 (05:46→13:01)
--- NOTE | 2019-09-18 05:49 | NUR ---
Pt has been awake most of night. PRN pain med given
[2019-09-18 06:31] VITALS: BP 138/82
[2019-09-18] MEDS: ASCORBIC ACID 500 MG TABLET PO SCH (08:28)
[2019-09-18] MEDS: GABAPENTIN 100 MG CAPSULE. PO SCH (08:28)
[2019-09-18] MEDS: MONTELUKAST 10 MG TABLET. PO SCH (08:28)
[2019-09-18] MEDS: DULoxetine HCL 30 MG CAPSULE.DR PO SCH (08:29)
[2019-09-18] MEDS: risperiDONE 1 MG TABLET. PO SCH ×2 (08:29→16:49)
[2019-09-18] MEDS: MELOXICAM 7.5 MG TABLET PO SCH (08:29)
[2019-09-18] MEDS: ONDANSETRON ODT 4 MG TAB.RAPDIS PO SCH ×3 (08:29→16:49)
[2019-09-18] MEDS: DOCUSATE SODIUM 100 MG CAPSULE PO SCH ×2 (08:30→19:30)
[2019-09-18] MEDS: LORazepam 1 MG TABLET PO SCH ×4 (08:30→19:29)
[2019-09-18] MEDS: carBAMazepine 200 MG TABLET PO SCH ×2 (08:30→19:28)
[2019-09-18] MEDS: PANTOPRAZOLE 40 MG TABLET. PO SCH (08:30)
[2019-09-18] MEDS: MULTIVITAMIN I-VITE TABLET. PO SCH (08:30)
[2019-09-18] MEDS: FUROSEMIDE 40 MG TABLET PO SCH (08:30)
[2019-09-18] MEDS: POTASSIUM CHLORIDE 20 MEQ TABLET.ER. PO SCH ×2 (08:30→19:29)
[2019-09-18] MEDS: LEVOTHYROXINE 50 MCG TABLET PO SCH (08:30)
[2019-09-18] MEDS: POLYETHYLENE GLYCOL 3350 17 GM PACKET. PO SCH (08:33)
[2019-09-18] MEDS: NYSTATIN TOPICAL POWDER 15GM BOTTLE. TP SCH ×2 (08:34→19:30)
[2019-09-18 09:42] LABS: BASO # 0.1 x10^3/uL (0.0-0.2); BASO % 1 % (0-3); EOS # 0.1 x10^3/uL (0.0-0.7); EOS % 2 % (0-3); HEMATOCRIT 38.1 % (36.0-47.0); HEMOGLOBIN 12.6 g/dL (12.0-15.5); LYMPH # 1.7 x10^3/uL (1.0-4.8); LYMPH % 27 % (24-48); MEAN CORPUSCULAR HEMOGLOBIN 31 pg (25-35); MEAN CORPUSCULAR HGB CONC 33 g/dL (31-37); MEAN CORPUSCULAR VOLUME 95 fL (79-100); MONO # 0.7 x10^3/uL (0.0-1.1); MONO % 10 % (0-9); NEUT # 3.8 x10^3uL (1.8-7.7); NEUT % 61 % (31-73); PLATELET COUNT 317 x10^3/uL (140-400); RED BLOOD COUNT 4.02 x10^6/uL (3.50-5.40); RED CELL DISTRIBUTION WIDTH 12.7 % (11.5-14.5); WHITE BLOOD COUNT 6.3 x10^3/uL (4.0-11.0)
[2019-09-18 09:52] LABS: ALBUMIN/GLOBULIN RATIO 1.1 (1.0-1.7); CALCIUM 8.9 mg/dL (8.5-10.1); CREATININE 0.7 mg/dL (0.6-1.0); POTASSIUM 3.7 mmol/L (3.5-5.1); TOTAL BILIRUBIN 0.2 mg/dL (0.2-1.0); TOTAL PROTEIN 7.7 g/dL (6.4-8.2)
[2019-09-18] MEDS: AMITIZA 8 MCG PO SCH (12:58)
[2019-09-18] MEDS ORDERED: LUBIPROSTONE 8 MCG CAPSULE PO ONE (13:00)
--- NOTE | 2019-09-18 14:46 | NUR ---
Pt has been calm and cooperative so far this shift. Pt was a little tearful right before lunch but was redirected. Pt has been compliant with all medications this shift. Pt was given PRN Lortab this afternoon. This afternoon, pt has been stating the she is waiting for Zane to come, that he'll be coming soon, that she ended the world and we'll be sorry, etc. Pt appears riihol-ib-ihzi with these statements. She does not say that she hears any voices. Jessica has been propelling herself in the hallway in a wheelchair.
[2019-09-18 15:52] LABS: CARBAM 9.8 mcg/mL (4.0-12.0)
[2019-09-18 16:01] VITALS: BP 110/72
[2019-09-18] MEDS: ATORVASTATIN CALCIUM 10 MG TABLET. PO SCH (19:29)
[2019-09-18] MEDS: AMITRIPTYLINE HCL 50 MG TABLET PO SCH (19:29)
--- NOTE | 2019-09-18 21:25 | PN ---
DATE: 09/16/2019 PSYCHIATRIC PROGRESS NOTE This late entry 09/16/2019 covers elements not covered in my initial note. SUBJECTIVE: I met with the patient evening of 09/16/2019 and staffed at treatment team meeting with the entire team earlier in the day. The patient attended the treatment team meeting, discussed her diagnosis. Psychotropic medication changes, discharge plans. Appetite is 50%, sleeping average 7 hours, slept 3-3/4 hours previous night, resistive to meds at times, somewhat flat, withdrawn, not attending groups. She has been religiously preoccupied, talking about Zane and being the only person who knows everything. She feels she has a brain tumor or infection accounting for her symptoms REVIEW OF SYSTEMS: Ambulation impaired, in wheelchair. No CV, , pulmonary, eye system symptoms on review. She has vague somatic symptoms. MENTAL STATUS EXAM: Reasonably oriented. Speech is coherent, abstraction fair, computation impaired, language function intact, attention span short. Mood and affect remains labile, anxious, paranoid. LABORATORY DATA: Reviewed. IMPRESSION: Schizoaffective disorder, bipolar type, mixed with psychotic features. PLAN: We will discontinue the IM Haldol p.r.n., increase Risperdal from 1 mg at bedtime to 1.5 mg at bedtime, Haldol Decanoate 100 mg IM every 4 weeks. Maintain Elavil 50 mg at bedtime, Tegretol 200 a.m. and 400 at bedtime. Repeat level on 09/18/2019. Ativan q.i.d., trazodone. Rest unchanged. ANNMARIE ROMERO MD DR: KAMILLE/taya JOB#: [id number] / [id number]
--- NOTE | 2019-09-18 21:44 | PDOC ---
Exam Note: Liam Note: Please also refer to the separate dictated note~for this date of service dictated separately.~Patient seen individually. Discussed the patient with Nursing staff reviewed the chart.~Reviewed interim history and current functioning. Reviewed vital signs,~Labs/ Radiology~and current medications noted below. Continue current treatment with the changes noted in the dictated addendum note Assessment: Vital Signs/I&O: Vital Signs Date Time Temp Pulse Resp B/P (MAP) Pulse Ox O2 Delivery O2 Flow Rate FiO2 09/18/19 16:01 97.1 87 16 110/72 (85) 99 09/18/19 14:04 Room Air I & O 09/17/19 09/17/19 09/18/19 15:00 23:00 07:00 Intake Total 840 ml 600 ml Balance 840 ml 600 ml Labs: Laboratory Tests Test 09/18/19 09:30 White Blood Count 6.3 x10^3/uL (4.0-11.0) Red Blood Count 4.02 x10^6/uL (3.50-5.40) Hemoglobin 12.6 g/dL (12.0-15.5) Hematocrit 38.1 % (36.0-47.0) Mean Corpuscular Volume 95 fL (79-100) Mean Corpuscular Hemoglobin 31 pg (25-35) Mean Corpuscular Hemoglobin Concent 33 g/dL (31-37) Red Cell Distribution Width 12.7 % (11.5-14.5) Platelet Count 317 x10^3/uL (140-400) Neutrophils (%) (Auto) 61 % (31-73) Lymphocytes (%) (Auto) 27 % (24-48) Monocytes (%) (Auto) 10 % (0-9) H Eosinophils (%) (Auto) 2 % (0-3) Basophils (%) (Auto) 1 % (0-3) Neutrophils # (Auto) 3.8 x10^3uL (1.8-7.7) Lymphocytes # (Auto) 1.7 x10^3/uL (1.0-4.8) Monocytes # (Auto) 0.7 x10^3/uL (0.0-1.1) Eosinophils # (Auto) 0.1 x10^3/uL (0.0-0.7) Basophils # (Auto) 0.1 x10^3/uL (0.0-0.2) Sodium Level 134 mmol/L (136-145) L Potassium Level 3.7 mmol/L (3.5-5.1) Chloride Level 96 mmol/L (98-107) L Carbon Dioxide Level 27 mmol/L (21-32) Anion Gap 11 (6-14) Blood Urea Nitrogen 7 mg/dL (7-20) Creatinine 0.7 mg/dL (0.6-1.0) Estimated GFR (Cockcroft-Gault) 83.0 BUN/Creatinine Ratio 10 (6-20) Glucose Level 117 mg/dL (70-99) H Calcium Level 8.9 mg/dL (8.5-10.1) Total Bilirubin 0.2 mg/dL (0.2-1.0) Aspartate Amino Transferase (AST) 16 U/L (15-37) Alanine Aminotransferase (ALT) 23 U/L (14-59) Alkaline Phosphatase 91 U/L (46-116) Total Protein 7.7 g/dL (6.4-8.2) Albumin 4.0 g/dL (3.4-5.0) Albumin/Globulin Ratio 1.1 (1.0-1.7) Carbamazepine (Tegretol) Level 9.8 mcg/mL (4.0-12.0) Carbamazepine Last Dose Date Unk Carbamazepine Last Dose Time Unk Current Medications: Meds: Current Medications Medications (Trade) Dose Ordered Sig/Arden Route PRN Reason Start Time Stop Time Status Last Admin Dose Admin Duloxetine HCl (Cymbalta) 30 mg DAILY PO 09/18/19 09:00 09/18/19 08:29 Risperidone (RisperDAL) 1 mg 0900,1700 PO 09/18/19 09:00 09/18/19 16:49 I have reviewed the current psychotropics carefully including drug interactions. Risk benefit ratio favors no change other than as noted in my dictated progress note. Diagnosis: Problems: (1) Dementia with behavioral disturbance (2) Schizophrenia, schizo-affective type (3) Anxiety disorder (4) Impulse control disorder (5) Schizophrenia, paranoid, chronic with acute exacerbation ANNMARIE ROMERO MD Sep 18, 2019 21:43
[2019-09-18] MEDS: ACETAMINOPHEN 325 MG TABLET PO PRN (23:01)
[2019-09-19] MEDS: HYDROcodone/APAP 5/325MG 1 TAB TABLET PO PRN ×5 (00:34→20:15)
--- NOTE | 2019-09-19 00:48 | NUR ---
Nursing Note The patient was located in the day room for her assessment and medication pass. The patient took her medication whole. The patient was very defiant this shift. The patient was initially refusing to take all of her medications but after having a discussion about the need to take her medications as prescribed the patient did take all of her medication. The patient requested PRN Tylenol and received it @ 2301. The patient stated that the Tylenol was ineffective and requested PRN Hydrocodone. The patient received PRN Hydrocodone@ 0030. The patient is currently awake in the day room.
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
[2019-09-19 05:49] VITALS: BP 135/80
--- NOTE | 2019-09-19 06:26 | NUR ---
Nursing Note The patient requested PRN hydrocodone@ 0600 and received PRN Hydrocodone per PRN order.
[2019-09-19] MEDS ORDERED: LUBIPROSTONE 8 MCG CAPSULE PO ONE (08:00)
[2019-09-19] MEDS: POTASSIUM CHLORIDE 20 MEQ TABLET.ER. PO SCH ×2 (08:15→20:10)
[2019-09-19] MEDS: MELOXICAM 7.5 MG TABLET PO SCH (08:15)
[2019-09-19] MEDS: POLYETHYLENE GLYCOL 3350 17 GM PACKET. PO SCH (08:15)
[2019-09-19] MEDS: LEVOTHYROXINE 50 MCG TABLET PO SCH (08:16)
[2019-09-19] MEDS: ONDANSETRON ODT 4 MG TAB.RAPDIS PO SCH ×3 (08:16→16:38)
[2019-09-19] MEDS: ASCORBIC ACID 500 MG TABLET PO SCH (08:16)
[2019-09-19] MEDS: MONTELUKAST 10 MG TABLET. PO SCH (08:16)
[2019-09-19] MEDS: FUROSEMIDE 40 MG TABLET PO SCH (08:16)
[2019-09-19] MEDS: PANTOPRAZOLE 40 MG TABLET. PO SCH (08:17)
[2019-09-19] MEDS: DULoxetine HCL 30 MG CAPSULE.DR PO SCH (08:17)
[2019-09-19] MEDS: DOCUSATE SODIUM 100 MG CAPSULE PO SCH ×2 (08:17→20:10)
[2019-09-19] MEDS: carBAMazepine 200 MG TABLET PO SCH ×2 (08:17→20:10)
[2019-09-19] MEDS: AMITIZA 8 MCG PO SCH (08:18)
[2019-09-19] MEDS: risperiDONE 1 MG TABLET. PO SCH ×2 (08:18→16:38)
[2019-09-19] MEDS: LORazepam 1 MG TABLET PO SCH ×4 (08:19→20:10)
[2019-09-19] MEDS: MULTIVITAMIN I-VITE TABLET. PO SCH (08:19)
[2019-09-19] MEDS: GABAPENTIN 100 MG CAPSULE. PO SCH (08:19)
[2019-09-19] MEDS: NYSTATIN TOPICAL POWDER 15GM BOTTLE. TP SCH ×2 (09:00→20:09)
[2019-09-19 16:10] VITALS: BP 106/73
[2019-09-19] MEDS ORDERED: traZODone 100 MG TABLET. PO PRN (17:45)
--- NOTE | 2019-09-19 18:25 | NUR ---
Patient was calm, attention seeking, medication compliant, and disorganized for mos tof this shift. After lunch, patient was near the unit entrance, crying very loudly. When asked why she was crying, she stated 'Because I love Zane so much'. Patient asked to go to her room because she was disturbing other patients. In her room, patient put herself on the floor in a kneeling position and said she was confessing. After about an hour, she was repeatedly calling out 'help'. Patient was assisted into her wheelchair. Patient had several complaints of pain throughout the shift; prn medications provided per eMAR. Will continue to monitor.
[2019-09-19] MEDS: ATORVASTATIN CALCIUM 10 MG TABLET. PO SCH (20:10)
[2019-09-19] MEDS: AMITRIPTYLINE HCL 50 MG TABLET PO SCH (20:10)
[2019-09-19] MEDS: traZODone 100 MG TABLET. PO SCH (20:10)
--- NOTE | 2019-09-19 21:14 | NUR ---
Pt self-propelling in w/c in the hallway at shift change. Pt calm, singing to herself, interactive. Pt cooperative with assessment and compliant with medications administered whole. PRN Hydrocodone administered for c/o severe back pain @2014.
--- NOTE | 2019-09-19 21:26 | PDOC ---
Exam Note: Liam Note: Please also refer to the separate dictated note~for this date of service dictated separately.~Patient seen individually. Discussed the patient with Nursing staff reviewed the chart.~Reviewed interim history and current functioning. Reviewed vital signs,~Labs/ Radiology~and current medications noted below. Continue current treatment with the changes noted in the dictated addendum note Assessment: Vital Signs/I&O: Vital Signs Date Time Temp Pulse Resp B/P (MAP) Pulse Ox O2 Delivery O2 Flow Rate FiO2 09/19/19 21:15 97 09/19/19 18:02 18 Room Air 09/19/19 16:10 97.9 98 106/73 (84) I & O 09/18/19 09/18/19 09/19/19 15:00 23:00 07:00 Intake Total 480 ml 480 ml 240 ml Balance 480 ml 480 ml 240 ml Current Medications: Meds: Current Medications Medications (Trade) Dose Ordered Sig/Arden Route PRN Reason Start Time Stop Time Status Last Admin Dose Admin Trazodone HCl (Desyrel) 100 mg QHS PO 09/19/19 21:00 09/19/19 20:10 I have reviewed the current psychotropics carefully including drug interactions. Risk benefit ratio favors no change other than as noted in my dictated progress note. Diagnosis: Problems: (1) Dementia with behavioral disturbance (2) Schizophrenia, schizo-affective type (3) Anxiety disorder (4) Impulse control disorder (5) Schizophrenia, paranoid, chronic with acute exacerbation ANNMARIE ROMERO MD Sep 19, 2019 21:26
--- NOTE | 2019-09-19 23:53 | PN ---
DATE: 09/18/2019 PSYCHIATRIC PROGRESS NOTE This late entry 09/18/2019 covers elements not covered in my initial note. SUBJECTIVE: I met with the patient in the evening. The patient slept 1-1/2 hours previous night per ELISABET Jimenez. She has been religiously preoccupied, paranoid, delusional, waiting for Zane, refusing medication, refused amitriptyline, took it later, talking to Zane more than before. REVIEW OF SYSTEMS: Ambulation impaired, in wheelchair. No CV, , pulmonary, eye system symptoms on review. MENTAL STATUS EXAM: Oriented to herself and situation. Speech is coherent, abstraction fair, computation impaired, language function intact, attention span short. She is quite psychotic, but we have adjusted the Risperdal. We will wait and see before increasing further. LABORATORY DATA: Reviewed. IMPRESSION: Unchanged from initial note. PLAN: No change from initial note. MAN Allyssa ROMERO MD DR: KAMILLE/taya JOB#: [id number] / [id number]
[2019-09-20] MEDS: HYDROcodone/APAP 5/325MG 1 TAB TABLET PO PRN ×3 (05:13→21:15)
[2019-09-20 05:55] VITALS: BP 100/63
[2019-09-20] MEDS: DULoxetine HCL 30 MG CAPSULE.DR PO SCH (07:53)
[2019-09-20] MEDS: carBAMazepine 200 MG TABLET PO SCH ×2 (07:53→21:14)
[2019-09-20] MEDS: MONTELUKAST 10 MG TABLET. PO SCH (07:53)
[2019-09-20] MEDS: MULTIVITAMIN I-VITE TABLET. PO SCH (07:53)
[2019-09-20] MEDS: FUROSEMIDE 40 MG TABLET PO SCH (07:53)
[2019-09-20] MEDS: LEVOTHYROXINE 50 MCG TABLET PO SCH (07:54)
[2019-09-20] MEDS: PANTOPRAZOLE 40 MG TABLET. PO SCH (07:54)
[2019-09-20] MEDS: ASCORBIC ACID 500 MG TABLET PO SCH (07:54)
[2019-09-20] MEDS: ONDANSETRON ODT 4 MG TAB.RAPDIS PO SCH ×3 (07:54→17:12)
[2019-09-20] MEDS: POTASSIUM CHLORIDE 20 MEQ TABLET.ER. PO SCH ×2 (07:54→21:15)
[2019-09-20] MEDS: MELOXICAM 7.5 MG TABLET PO SCH (07:54)
[2019-09-20] MEDS: AMITIZA 8 MCG PO SCH (07:55)
[2019-09-20] MEDS: CHOLECALCIFEROL (VITAMIN D3) 50,000 UNIT CAPSULE PO SCH (07:56)
[2019-09-20] MEDS: GABAPENTIN 100 MG CAPSULE. PO SCH (07:56)
[2019-09-20] MEDS: LORazepam 1 MG TABLET PO SCH ×4 (07:56→21:15)
[2019-09-20] MEDS: risperiDONE 1 MG TABLET. PO SCH ×2 (07:57→17:00)
[2019-09-20] MEDS: DOCUSATE SODIUM 100 MG CAPSULE PO SCH ×2 (09:00→21:00)
[2019-09-20] MEDS ORDERED: LUBIPROSTONE 8 MCG CAPSULE PO ONE (09:00)
[2019-09-20] MEDS: POLYETHYLENE GLYCOL 3350 17 GM PACKET. PO SCH (09:00)
[2019-09-20] MEDS: NYSTATIN TOPICAL POWDER 15GM BOTTLE. TP SCH ×2 (09:49→21:18)
--- NOTE | 2019-09-20 14:04 | NUR ---
Patient has been very jewish, disorganized, restless, and compliant with meds throughout this shift. She has been singing randomly while in the hallway usually just 'god, god, god', she has been praying under her breath while sitting in the hallway, and after lunch stated that Zane's blood was all over the hallway floor. She also used a walker that was int he hallway to get herself out of her wheelchair and walk to a bench in the hallway. Patient was cooperateive with therapy today, and stated she wants to keep walking. Will continue to monitor and report to oncoming shift.
[2019-09-20 16:28] VITALS: BP 120/76
--- NOTE | 2019-09-20 18:15 | NUR ---
Patient refused 17:00 medications. Will report to MD and continue to monitor.
--- NOTE | 2019-09-20 20:06 | PN ---
DATE: 09/19/2019 PSYCHIATRIC PROGRESS NOTE This late entry, 09/19, covers the elements not covered in my initial note. SUBJECTIVE: I met with the patient on the evening of 09/19. Per ELISABET Alcocer, the patient slept 2-1/4 hours previous night. She has been quite religiously preoccupied, perseverating on talking to Zane and she believes Zane is talking to her. She was quite tearful, crying after lunch, put herself on the floor, screaming help quite anxiously, labile in her mood. REVIEW OF SYSTEMS: Ambulation impaired, in wheelchair. No CV, , pulmonary, eye, ENT systems symptoms on review. I met with her individually in the evening. MENTAL STATUS EXAM: Oriented to herself and situation. Speech has some latency, coherent. Abstraction fair, computation impaired, language function intact, attention span short. Mood and affect somewhat labile. LABORATORY DATA: Reviewed. IMPRESSION: Schizoaffective disorder, bipolar type, mixed with psychotic features; anxiety disorder, unspecified; impulse control disorder, unspecified. PLAN: Increase Risperdal from 1 mg at 9:00 a.m. to 1.5 mg at 9:00 a.m. Continue 1 mg at 1700. Maintain Haldol Decanoate, amitriptyline, Tegretol, Cymbalta unchanged along with Ativan 1 mg q.i.d., trazodone at bedtime p.r.n., but we will increase the trazodone from 50 mg at bedtime p.r.n. to 100 mg at bedtime p.r.n., may repeat x 1 for insomnia. Hopefully, stabilizing her sleep will help with her mood lability as well. MAN Allyssa ROMERO MD DR: KAMILLE/taya JOB#: [id number] / [id number]
[2019-09-20] MEDS: ATORVASTATIN CALCIUM 10 MG TABLET. PO SCH (21:14)
[2019-09-20] MEDS: LITHIUM CARBONATE 300 MG TABLET PO SCH (21:15)
[2019-09-20] MEDS: AMITRIPTYLINE HCL 50 MG TABLET PO SCH (21:15)
[2019-09-20] MEDS: MAG HYDROX/AL HYDROX/SIMETH 30 ML ORAL.SUSP PO PRN (21:15)
[2019-09-20] MEDS: traZODone 100 MG TABLET. PO SCH (21:15)
--- NOTE | 2019-09-20 21:22 | PDOC ---
Exam Note: Liam Note: Please also refer to the separate dictated note~for this date of service dictated separately.~Patient seen individually. Discussed the patient with Nursing staff reviewed the chart.~Reviewed interim history and current functioning. Reviewed vital signs,~Labs/ Radiology~and current medications noted below. Continue current treatment with the changes noted in the dictated addendum note Assessment: Vital Signs/I&O: Vital Signs Date Time Temp Pulse Resp B/P (MAP) Pulse Ox O2 Delivery O2 Flow Rate FiO2 09/20/19 16:28 97.8 92 18 120/76 (91) 97 09/20/19 11:00 Room Air I & O 09/19/19 09/19/19 09/20/19 15:00 23:00 07:00 Intake Total 600 ml 240 ml 240 ml Balance 600 ml 240 ml 240 ml Current Medications: Meds: Current Medications Medications (Trade) Dose Ordered Sig/Arden Route PRN Reason Start Time Stop Time Status Last Admin Dose Admin Risperidone (RisperDAL) 1.5 mg DAILY PO 09/20/19 09:00 09/20/19 07:57 [place] Carbonate 300 mg QHS PO 09/20/19 21:00 09/20/19 21:15 I have reviewed the current psychotropics carefully including drug interactions. Risk benefit ratio favors no change other than as noted in my dictated progress note. Diagnosis: Problems: (1) Dementia with behavioral disturbance (2) Schizophrenia, schizo-affective type (3) Anxiety disorder (4) Impulse control disorder (5) Schizophrenia, paranoid, chronic with acute exacerbation ANNMARIE ROMERO MD Sep 20, 2019 21:22
--- NOTE | 2019-09-20 21:33 | NUR ---
Pt propelling self in the hallway at shift change. Pt with a flat affect this evening, talking to someone that is not there. When asked to whom she was speaking, pt reported that she was speaking to God. This nurse approached pt for medications and assessment, before taking her medications, pt stated "I don't know if I should take those. I have to ask God." Pt then began whispering to herself and then told this nurse, "God said I shouldn't take those." This nurse asked pt once more if she would take her medications and pt stated, "not now. I'm watching this." Pt then turned her attention to the movie playing in the day room. After the movie was over, pt reported that she wanted to go to bed. This nurse re-approached pt with her HS medications which pt agreed to take. Pt was then compliant with her assessment and shower. PRN Hydrocodone administered with HS medications for c/o pain in her back, bilateral legs, and bilateral sides.
[2019-09-21] MEDS: HYDROcodone/APAP 5/325MG 1 TAB TABLET PO PRN ×3 (05:37→14:12)
[2019-09-21 05:46] VITALS: BP 120/73
--- NOTE | 2019-09-21 05:48 | NUR ---
Pt c/o back and bilateral leg pain this morning. PRN Hydrocodone administered as ordered.
[2019-09-21] MEDS: MELOXICAM 7.5 MG TABLET PO SCH (08:24)
[2019-09-21] MEDS: MONTELUKAST 10 MG TABLET. PO SCH (08:24)
[2019-09-21] MEDS: AMITIZA 8 MCG PO SCH (08:25)
[2019-09-21] MEDS: risperiDONE 1 MG TABLET. PO SCH ×2 (08:25→17:14)
[2019-09-21] MEDS: ASCORBIC ACID 500 MG TABLET PO SCH (08:26)
[2019-09-21] MEDS: MULTIVITAMIN I-VITE TABLET. PO SCH (08:26)
[2019-09-21] MEDS: LEVOTHYROXINE 50 MCG TABLET PO SCH (08:26)
[2019-09-21] MEDS: carBAMazepine 200 MG TABLET PO SCH ×2 (08:26→20:06)
[2019-09-21] MEDS: DULoxetine HCL 30 MG CAPSULE.DR PO SCH (08:26)
[2019-09-21] MEDS: FUROSEMIDE 40 MG TABLET PO SCH (08:26)
[2019-09-21] MEDS: ONDANSETRON ODT 4 MG TAB.RAPDIS PO SCH ×3 (08:27→17:14)
[2019-09-21] MEDS: LORazepam 1 MG TABLET PO SCH ×4 (08:27→20:05)
[2019-09-21] MEDS: GABAPENTIN 100 MG CAPSULE. PO SCH (08:27)
[2019-09-21] MEDS: POTASSIUM CHLORIDE 20 MEQ TABLET.ER. PO SCH ×2 (08:27→20:05)
[2019-09-21] MEDS: DOCUSATE SODIUM 100 MG CAPSULE PO SCH (08:30)
[2019-09-21] MEDS: POLYETHYLENE GLYCOL 3350 17 GM PACKET. PO SCH (08:30)
[2019-09-21] MEDS: PANTOPRAZOLE 40 MG TABLET. PO SCH (08:30)
[2019-09-21] MEDS ORDERED: LUBIPROSTONE 8 MCG CAPSULE PO ONE (09:00)
[2019-09-21] MEDS: NYSTATIN TOPICAL POWDER 15GM BOTTLE. TP SCH ×2 (09:29→20:06)
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
[2019-09-21 16:14] VITALS: BP 126/59
--- NOTE | 2019-09-21 16:26 | NUR ---
Patient has been very lutheran, disorganized, restless, and med seeking throughout this shift. She has been singing randomly while in the hallway and day room; she has multiple complaints of pain and requests prn medications frequently. Patient refused stool softeners/laxatives and protonix this morning. Patient was cooperative with therapy today, and walked with staff. Will continue to monitor and report to oncoming shift.
[2019-09-21] MEDS ORDERED: POLYETHYLENE GLYCOL 3350 17 GM PACKET. PO PRN (18:30)
[2019-09-21] MEDS ORDERED: DOCUSATE SODIUM 100 MG CAPSULE PO PRN (18:30)
[2019-09-21] MEDS: ATORVASTATIN CALCIUM 10 MG TABLET. PO SCH (20:05)
[2019-09-21] MEDS: AMITRIPTYLINE HCL 50 MG TABLET PO SCH (20:06)
[2019-09-21] MEDS: LITHIUM CARBONATE 300 MG TABLET PO SCH (20:06)
[2019-09-21] MEDS: traZODone 100 MG TABLET. PO SCH (20:06)
--- NOTE | 2019-09-21 21:22 | PDOC ---
Exam Note: Liam Note: Please also refer to the separate dictated note~for this date of service dictated separately.~Patient seen individually. Discussed the patient with Nursing staff reviewed the chart.~Reviewed interim history and current functioning. Reviewed vital signs,~Labs/ Radiology~and current medications noted below. Continue current treatment with the changes noted in the dictated addendum note Assessment: Vital Signs/I&O: Vital Signs Date Time Temp Pulse Resp B/P (MAP) Pulse Ox O2 Delivery O2 Flow Rate FiO2 09/21/19 16:24 16 97 Room Air 09/21/19 16:14 97.7 87 126/59 (81) I & O 09/20/19 09/20/19 09/21/19 15:00 23:00 07:00 Intake Total 600 ml 240 ml 240 ml Balance 600 ml 240 ml 240 ml Current Medications: I have reviewed the current psychotropics carefully including drug interactions. Risk benefit ratio favors no change other than as noted in my dictated progress note. Diagnosis: Problems: (1) Dementia with behavioral disturbance (2) Schizophrenia, schizo-affective type (3) Hypokalemia (4) Medical clearance for psychiatric admission (5) Anxiety disorder (6) Impulse control disorder (7) Schizophrenia, paranoid, chronic with acute exacerbation ANNMARIE ROMERO MD Sep 21, 2019 21:22
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
--- NOTE | 2019-09-21 21:56 | PN ---
DATE: 09/20/2019 PSYCHIATRIC PROGRESS NOTE This late entry 09/20/2019 covers the elements not covered in my initial note. SUBJECTIVE: I met with the patient in the evening of 09/20/2019. Per ELISABET Alcocer, the patient slept 6 hours previous night. Previous night, she was crying during the day on 09/20/2019. She has been singing at times, praying, hyper-jain, not crying. She continues to have significant mood lability. BUN and creatinine unremarkable. REVIEW OF SYSTEMS: Ambulation impaired, in wheelchair. No CV, , pulmonary, eye, ENT system symptoms on review. MENTAL STATUS EXAM: Oriented to herself and situation. Speech is coherent, has some latency. Abstraction fair, computation impaired, language function intact, attention span short. Mood and affect somewhat labile. LABORATORY DATA: Reviewed. IMPRESSION: Unchanged from initial note. PLAN: No change from initial note, but we will go ahead and start lithium 300 mg p.o. at bedtime as a mood stabilizer. Check CBC, CMP, lithium level in 3 days. Rest unchanged for now. MAN Allyssa ROMERO MD DR: KAMILLE/taya JOB#: [id number] / [id number]
[2019-09-22] MEDS: HYDROcodone/APAP 5/325MG 1 TAB TABLET PO PRN ×2 (03:53→16:43)
[2019-09-22 05:20] VITALS: BP 119/76
[2019-09-22] MEDS: MULTIVITAMIN I-VITE TABLET. PO SCH (08:39)
[2019-09-22] MEDS: GABAPENTIN 100 MG CAPSULE. PO SCH (08:39)
[2019-09-22] MEDS: NYSTATIN TOPICAL POWDER 15GM BOTTLE. TP SCH ×2 (08:39→20:39)
[2019-09-22] MEDS: POTASSIUM CHLORIDE 20 MEQ TABLET.ER. PO SCH ×2 (08:39→20:38)
[2019-09-22] MEDS: carBAMazepine 200 MG TABLET PO SCH (08:39)
[2019-09-22] MEDS: risperiDONE 1 MG TABLET. PO SCH ×2 (08:39→16:43)
[2019-09-22] MEDS: LORazepam 1 MG TABLET PO SCH ×4 (08:39→20:38)
[2019-09-22] MEDS: MONTELUKAST 10 MG TABLET. PO SCH (08:39)
[2019-09-22] MEDS: ONDANSETRON ODT 4 MG TAB.RAPDIS PO SCH ×3 (08:39→16:43)
[2019-09-22] MEDS: LEVOTHYROXINE 50 MCG TABLET PO SCH (08:40)
[2019-09-22] MEDS: FUROSEMIDE 40 MG TABLET PO SCH (08:40)
[2019-09-22] MEDS: MELOXICAM 7.5 MG TABLET PO SCH (08:40)
[2019-09-22] MEDS: DULoxetine HCL 30 MG CAPSULE.DR PO SCH (08:40)
[2019-09-22] MEDS: PANTOPRAZOLE 40 MG TABLET. PO SCH (08:40)
[2019-09-22] MEDS: AMITIZA 8 MCG PO SCH (08:40)
[2019-09-22] MEDS: ASCORBIC ACID 500 MG TABLET PO SCH (08:40)
[2019-09-22] MEDS ORDERED: LUBIPROSTONE 8 MCG CAPSULE PO ONE (09:00)
--- NOTE | 2019-09-22 10:55 | NUR ---
WEEKLY ACTIVITY THERAPY NOTE Date of Admission: 09/11/2019 Date of AT Assessment: 09/14/2019 Goal aimed: to increase engagement and socialization Initial goal: Pt. will participate in at least three Activity Therapy groups or individual sessions before discharge. Weekly progress towards goal: 2/3 (09/17:Jennifer Mishra, 09/20: exercises) Group participation level: 1 min, 1 mod Weekly highlights: dancing to music on Thursday Behaviors observed: wandering/ end of alberts, religiosity, easily distracted, talking to herself, tearful moments Plan: no change to goal Beneficial adaptations:
--- NOTE | 2019-09-22 12:01 | NUR ---
SW spoke to Salazar, Nurse at [facility], to give him an update on pt. progress and tentative discharge scheduled for the end of next week or the week after.
--- NOTE | 2019-09-22 14:46 | NUR ---
Nursing Note Pt up in w/c, self-propelling, and crying in hallway at shift change. When this nurse asked why she was crying, pt said "because Zane doesn't love me anymore.". Pt mood has been very labile, singing randomly in the hallway, or crying the next. Pt is suspicious, delusional, initially refusing to take all her meds states "Father does not want me to take pills from brown people like you. He talked to me in my dreams." Pt then pointed to the wall and states "That mouse is making fun of you". Pt eventually took all her meds with lots of encouragement and after explaining each medications and it's use.
[2019-09-22 15:52] VITALS: BP 109/68
[2019-09-22] MEDS: ATORVASTATIN CALCIUM 10 MG TABLET. PO SCH (20:38)
[2019-09-22] MEDS: AMITRIPTYLINE HCL 50 MG TABLET PO SCH (20:38)
[2019-09-22] MEDS: traZODone 100 MG TABLET. PO SCH (20:39)
[2019-09-22] MEDS: LITHIUM CARBONATE 300 MG TABLET PO SCH (20:39)
--- NOTE | 2019-09-22 21:26 | PDOC ---
Exam Note: Liam Note: Please also refer to the separate dictated note~for this date of service dictated separately.~Patient seen individually. Discussed the patient with Nursing staff reviewed the chart.~Reviewed interim history and current functioning. Reviewed vital signs,~Labs/ Radiology~and current medications noted below. Continue current treatment with the changes noted in the dictated addendum note Assessment: Vital Signs/I&O: Vital Signs Date Time Temp Pulse Resp B/P (MAP) Pulse Ox O2 Delivery O2 Flow Rate FiO2 09/22/19 17:43 16 09/22/19 16:43 96 09/22/19 15:52 97.3 91 109/68 (82) 09/22/19 05:20 Room Air I & O 09/21/19 09/21/19 09/22/19 15:00 23:00 07:00 Intake Total 480 ml 480 ml 240 ml Balance 480 ml 480 ml 240 ml Current Medications: I have reviewed the current psychotropics carefully including drug interactions. Risk benefit ratio favors no change other than as noted in my dictated progress note. Diagnosis: Problems: (1) Dementia with behavioral disturbance (2) Schizophrenia, schizo-affective type (3) Anxiety disorder (4) Impulse control disorder (5) Schizophrenia, paranoid, chronic with acute exacerbation ANNMARIE ROMERO MD Sep 22, 2019 21:26
[2019-09-23] MEDS: HYDROcodone/APAP 5/325MG 1 TAB TABLET PO PRN ×3 (03:58→20:40)
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
--- NOTE | 2019-09-23 06:06 | NUR ---
Thyroid pill given to pt. She then spit it out and said Zane said not to take it.
[2019-09-23 06:40] VITALS: BP 120/80
[2019-09-23 07:35] LABS: BASO % 1 % (0-3); EOS # 0.2 x10^3/uL (0.0-0.7); EOS % 2 % (0-3); HEMATOCRIT 36.6 % (36.0-47.0); HEMOGLOBIN 12.4 g/dL (12.0-15.5); LYMPH # 1.8 x10^3/uL (1.0-4.8); LYMPH % 29 % (24-48); MEAN CORPUSCULAR HEMOGLOBIN 32 pg (25-35); MEAN CORPUSCULAR HGB CONC 34 g/dL (31-37); MEAN CORPUSCULAR VOLUME 94 fL (79-100); MONO # 0.5 x10^3/uL (0.0-1.1); MONO % 8 % (0-9); NEUT # 3.8 x10^3uL (1.8-7.7); NEUT % 60 % (31-73); PLATELET COUNT 378 x10^3/uL (140-400); RED CELL DISTRIBUTION WIDTH 12.7 % (11.5-14.5); WHITE BLOOD COUNT 6.2 x10^3/uL (4.0-11.0)
[2019-09-23 07:45] LABS: ALBUMIN 4.2 g/dL (3.4-5.0)
[2019-09-23 07:46] LABS: ALBUMIN/GLOBULIN RATIO 1.1 (1.0-1.7); CALCIUM 9.7 mg/dL (8.5-10.1); CREATININE 0.7 mg/dL (0.6-1.0); POTASSIUM 4.4 mmol/L (3.5-5.1); TOTAL BILIRUBIN 0.3 mg/dL (0.2-1.0)
[2019-09-23] MEDS ORDERED: LUBIPROSTONE 8 MCG CAPSULE PO ONE ×2 (09:00)
[2019-09-23] MEDS: LORazepam 1 MG TABLET PO SCH ×4 (10:24→20:40)
[2019-09-23] MEDS: ASCORBIC ACID 500 MG TABLET PO SCH (10:25)
[2019-09-23] MEDS: AMITIZA 8 MCG PO SCH (10:25)
[2019-09-23] MEDS: FUROSEMIDE 40 MG TABLET PO SCH (10:25)
[2019-09-23] MEDS: MULTIVITAMIN I-VITE TABLET. PO SCH (10:26)
[2019-09-23] MEDS: PANTOPRAZOLE 40 MG TABLET. PO SCH (10:26)
[2019-09-23] MEDS: DULoxetine HCL 30 MG CAPSULE.DR PO SCH (10:26)
[2019-09-23] MEDS: POTASSIUM CHLORIDE 20 MEQ TABLET.ER. PO SCH ×2 (10:26→20:40)
[2019-09-23] MEDS: ONDANSETRON ODT 4 MG TAB.RAPDIS PO SCH ×3 (10:26→13:47)
[2019-09-23] MEDS: MONTELUKAST 10 MG TABLET. PO SCH (10:26)
[2019-09-23] MEDS: GABAPENTIN 100 MG CAPSULE. PO SCH (10:26)
[2019-09-23] MEDS: MELOXICAM 7.5 MG TABLET PO SCH (10:27)
[2019-09-23] MEDS: risperiDONE 1 MG TABLET. PO SCH ×2 (10:28→17:09)
[2019-09-23] MEDS: NYSTATIN TOPICAL POWDER 15GM BOTTLE. TP SCH ×2 (10:28→20:41)
[2019-09-23] MEDS: LEVOTHYROXINE 50 MCG TABLET PO SCH (10:28)
[2019-09-23 16:31] VITALS: BP 129/65
--- NOTE | 2019-09-23 17:34 | NUR ---
Pt in [facility] for morning meds and assessment. Pt resistant to meds initially, however took them after this nurse explained that if she wasn't going to comply with the Dr's instructions, then there was no reason for her to be in this facility. Pt tearful intermittently throughout the day, wandering and crying about Zane and going to heaven.
[2019-09-23] MEDS ORDERED: traZODone 100 MG TABLET. PO PRN (18:30)
--- NOTE | 2019-09-23 19:08 | PN ---
DATE: 09/21/2019 PSYCHIATRIC PROGRESS NOTE This late entry, 09/21, covers the elements not covered in my initial note. SUBJECTIVE: I met with the patient on the evening of 09/21. The patient slept 6-1/4 hours previous night per ELISABET Alcocer. Previous night, she was somewhat grandiose, talking about God telling her not to take her medications. She did take them later. She remains hyper-confucianism, lithium started, tolerating it. REVIEW OF SYSTEMS: Ambulation impaired, in wheelchair. No CV, , pulmonary, eye, ENT systems symptoms on review. She has vague somatic symptoms. MENTAL STATUS EXAM: Oriented to herself and situation. Speech is coherent, little pressured at times, hyper-confucianism. She was wanting me to recite prayers for her. Abstraction fair, computation impaired, language function intact, attention span short. Mood and affect somewhat labile. LABORATORY DATA: Reviewed. IMPRESSION: Unchanged from initial note. PLAN: No change from initial note. ANNMARIE ROMERO MD DR: KAMILLE/taya JOB#: [id number] / [id number]
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
[2019-09-23] MEDS: traZODone 100 MG TABLET. PO SCH (20:40)
[2019-09-23] MEDS: LITHIUM CARBONATE 300 MG TABLET PO SCH (20:41)
[2019-09-23] MEDS: AMITRIPTYLINE HCL 50 MG TABLET PO SCH (20:41)
--- NOTE | 2019-09-23 20:42 | NUR ---
PRN lortab given for co pain
[2019-09-23] MEDS: ATORVASTATIN CALCIUM 10 MG TABLET. PO SCH (20:43)
[2019-09-23] MEDS: cloZAPine 25 MG TABLET PO SCH (20:43)
--- NOTE | 2019-09-23 21:26 | PDOC ---
Exam Note: Liam Note: Please also refer to the separate dictated note~for this date of service dictated separately.~Patient seen individually. Discussed the patient with Nursing staff reviewed the chart.~Reviewed interim history and current functioning. Reviewed vital signs,~Labs/ Radiology~and current medications noted below. Continue current treatment with the changes noted in the dictated addendum note Assessment: Vital Signs/I&O: Vital Signs Date Time Temp Pulse Resp B/P (MAP) Pulse Ox O2 Delivery O2 Flow Rate FiO2 09/23/19 16:31 98.3 74 18 129/65 (86) 96 09/23/19 05:00 Room Air I & O 09/22/19 09/22/19 09/23/19 15:00 23:00 07:00 Intake Total 720 ml 480 ml 240 ml Balance 720 ml 480 ml 240 ml Labs: Laboratory Tests Test 09/23/19 07:02 White Blood Count 6.2 x10^3/uL (4.0-11.0) Red Blood Count 3.90 x10^6/uL (3.50-5.40) Hemoglobin 12.4 g/dL (12.0-15.5) Hematocrit 36.6 % (36.0-47.0) Mean Corpuscular Volume 94 fL (79-100) Mean Corpuscular Hemoglobin 32 pg (25-35) Mean Corpuscular Hemoglobin Concent 34 g/dL (31-37) Red Cell Distribution Width 12.7 % (11.5-14.5) Platelet Count 378 x10^3/uL (140-400) Neutrophils (%) (Auto) 60 % (31-73) Lymphocytes (%) (Auto) 29 % (24-48) Monocytes (%) (Auto) 8 % (0-9) Eosinophils (%) (Auto) 2 % (0-3) Basophils (%) (Auto) 1 % (0-3) Neutrophils # (Auto) 3.8 x10^3uL (1.8-7.7) Lymphocytes # (Auto) 1.8 x10^3/uL (1.0-4.8) Monocytes # (Auto) 0.5 x10^3/uL (0.0-1.1) Eosinophils # (Auto) 0.2 x10^3/uL (0.0-0.7) Basophils # (Auto) 0.0 x10^3/uL (0.0-0.2) Sodium Level 138 mmol/L (136-145) Potassium Level 4.4 mmol/L (3.5-5.1) Chloride Level 99 mmol/L (98-107) Carbon Dioxide Level 30 mmol/L (21-32) Anion Gap 9 (6-14) Blood Urea Nitrogen 9 mg/dL (7-20) Creatinine 0.7 mg/dL (0.6-1.0) Estimated GFR (Cockcroft-Gault) 83.0 BUN/Creatinine Ratio 13 (6-20) Glucose Level 101 mg/dL (70-99) H Calcium Level 9.7 mg/dL (8.5-10.1) Total Bilirubin 0.3 mg/dL (0.2-1.0) Aspartate Amino Transferase (AST) 15 U/L (15-37) Alanine Aminotransferase (ALT) 21 U/L (14-59) Alkaline Phosphatase 93 U/L (46-116) Total Protein 8.0 g/dL (6.4-8.2) Albumin 4.2 g/dL (3.4-5.0) Albumin/Globulin Ratio 1.1 (1.0-1.7) [place] Level 0.4 mmol/L (0.6-1.2) L [place] Last Dose Date 09/22/19 [place] Last Dose Time 2100 Current Medications: Meds: Current Medications Medications (Trade) Dose Ordered Sig/Arden Route PRN Reason Start Time Stop Time Status Last Admin Dose Admin Clozapine (Clozaril) 25 mg HS PO 09/23/19 21:00 09/23/19 20:43 Trazodone HCl (Desyrel) 150 mg QHS PO 09/23/19 21:00 09/23/19 20:40 I have reviewed the current psychotropics carefully including drug interactions. Risk benefit ratio favors no change other than as noted in my dictated progress note. Diagnosis: Problems: (1) Dementia with behavioral disturbance (2) Schizophrenia, schizo-affective type (3) Medical clearance for psychiatric admission (4) Anxiety disorder (5) Impulse control disorder (6) Schizophrenia, paranoid, chronic with acute exacerbation ANNMARIE ROMERO MD Sep 23, 2019 21:26
--- NOTE | 2019-09-23 22:30 | NUR ---
Pt drowsy with no further co pain
--- NOTE | 2019-09-24 00:42 | NUR ---
This shift pt has been talking about Shanae lot, saying he is here, he is coming, he is talking to her, they made a baby, almost non stop. She did take her HS meds with minimal coaching. She did not want to go to bed till dmitri got here but was put to bed at 2300 without difficulty. PRN trazodone given and she has been sleeping.
[2019-09-24] MEDS: HYDROcodone/APAP 5/325MG 1 TAB TABLET PO PRN (05:37)
[2019-09-24 06:39] VITALS: BP 97/57
[2019-09-24] MEDS: NYSTATIN TOPICAL POWDER 15GM BOTTLE. TP SCH ×2 (09:00→20:22)
[2019-09-24] MEDS: AMITIZA 8 MCG PO SCH (10:16)
[2019-09-24] MEDS: LEVOTHYROXINE 50 MCG TABLET PO SCH (10:16)
[2019-09-24] MEDS: ONDANSETRON ODT 4 MG TAB.RAPDIS PO SCH ×3 (10:16→17:27)
[2019-09-24] MEDS: PANTOPRAZOLE 40 MG TABLET. PO SCH (10:16)
[2019-09-24] MEDS: MULTIVITAMIN I-VITE TABLET. PO SCH (10:17)
[2019-09-24] MEDS: DULoxetine HCL 30 MG CAPSULE.DR PO SCH (10:17)
[2019-09-24] MEDS: FUROSEMIDE 40 MG TABLET PO SCH (10:17)
[2019-09-24] MEDS: POTASSIUM CHLORIDE 20 MEQ TABLET.ER. PO SCH ×2 (10:17→20:18)
[2019-09-24] MEDS: LORazepam 1 MG TABLET PO SCH ×4 (10:17→20:18)
[2019-09-24] MEDS: GABAPENTIN 100 MG CAPSULE. PO SCH (10:18)
[2019-09-24] MEDS: MELOXICAM 7.5 MG TABLET PO SCH (10:18)
[2019-09-24] MEDS: risperiDONE 1 MG TABLET. PO SCH ×2 (10:18→17:27)
[2019-09-24] MEDS: MONTELUKAST 10 MG TABLET. PO SCH (10:19)
[2019-09-24] MEDS: ASCORBIC ACID 500 MG TABLET PO SCH (10:19)
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
[2019-09-24 16:10] VITALS: BP 117/65
[2019-09-24] MEDS: cloZAPine 25 MG TABLET PO SCH (20:17)
[2019-09-24] MEDS: LITHIUM CARBONATE 300 MG TABLET PO SCH (20:17)
[2019-09-24] MEDS: ATORVASTATIN CALCIUM 10 MG TABLET. PO SCH (20:17)
[2019-09-24] MEDS: traZODone 100 MG TABLET. PO SCH (20:18)
[2019-09-24] MEDS: AMITRIPTYLINE HCL 50 MG TABLET PO SCH (20:18)
--- NOTE | 2019-09-24 21:25 | PDOC ---
Exam Note: Liam Note: Please also refer to the separate dictated note~for this date of service dictated separately.~Patient seen individually. Discussed the patient with Nursing staff reviewed the chart.~Reviewed interim history and current functioning. Reviewed vital signs,~Labs/ Radiology~and current medications noted below. Continue current treatment with the changes noted in the dictated addendum note Assessment: Vital Signs/I&O: Vital Signs Date Time Temp Pulse Resp B/P (MAP) Pulse Ox O2 Delivery O2 Flow Rate FiO2 09/24/19 16:10 98.1 92 19 117/65 (82) 96 09/24/19 05:37 Room Air I & O 09/23/19 09/23/19 09/24/19 15:00 23:00 07:00 Intake Total 240 ml 240 ml 360 ml Balance 240 ml 240 ml 360 ml Current Medications: Meds: Current Medications Medications (Trade) Dose Ordered Sig/Arden Route PRN Reason Start Time Stop Time Status Last Admin Dose Admin Olanzapine (ZyPREXA ZYDIS) 2.5 mg PRN Q2HR PRN PO PSYCHOSIS 09/24/19 13:00 09/24/19 13:38 I have reviewed the current psychotropics carefully including drug interactions. Risk benefit ratio favors no change other than as noted in my dictated progress note. Diagnosis: Problems: (1) Dementia with behavioral disturbance (2) Schizophrenia, schizo-affective type (3) Medical clearance for psychiatric admission (4) Anxiety disorder (5) Impulse control disorder (6) Schizophrenia, paranoid, chronic with acute exacerbation ANNMARIE ROMERO MD Sep 24, 2019 21:25
[2019-09-24 22:16] LABS: BACTERIA,URINE FEW /HPF (0-FEW); BILIRUBIN,URINE NEG (NEG); CLARITY,URINE CLEAR; COLOR,URINE YELLOW; GLUCOSE,URINE NEG (NEG); NITRITE,URINE NEG (NEG); RBC,URINE 0 /HPF (0-2); SQUAMOUS EPITHELIAL CELL,UR OCC /LPF; UROBILINOGEN,URINE 0.2 mg/dL (0.2 mg/dL)
--- NOTE | 2019-09-25 01:23 | NUR ---
Nursing Note Pt up in day room on the phone crying at shift change. Family called at shift change asking to talk to the patient, she put down the phone and wandered away. Family then called again asking why patient stopped talking to him asking if she is sick, why she is acting like this on and on and on. Told family that we were just in report and that we had not cared for the patient yet that staff are just starting their shift. Talked to patient and she stated that she just stopped talking and then started crying she states because Cathy loved her till they had a baby, but now he isn't in love and the he is mad at her,even hates her. Difficult to redirect patient in between her sobs. Pt stops briefly to take po meds.
[2019-09-25 06:38] VITALS: BP 126/76
[2019-09-25] MEDS: LEVOTHYROXINE 50 MCG TABLET PO SCH (07:30)
[2019-09-25] MEDS: ASCORBIC ACID 500 MG TABLET PO SCH (08:21)
[2019-09-25] MEDS: LITHIUM CARBONATE 300 MG TABLET PO SCH ×2 (08:21→20:04)
[2019-09-25] MEDS: MONTELUKAST 10 MG TABLET. PO SCH (08:21)
[2019-09-25] MEDS: LORazepam 1 MG TABLET PO SCH ×4 (08:22→20:04)
[2019-09-25] MEDS: FUROSEMIDE 40 MG TABLET PO SCH (08:22)
[2019-09-25] MEDS: GABAPENTIN 100 MG CAPSULE. PO SCH (08:22)
[2019-09-25] MEDS: MULTIVITAMIN I-VITE TABLET. PO SCH (08:22)
[2019-09-25] MEDS: DULoxetine HCL 30 MG CAPSULE.DR PO SCH (08:22)
[2019-09-25] MEDS: MELOXICAM 7.5 MG TABLET PO SCH (08:22)
[2019-09-25] MEDS: PANTOPRAZOLE 40 MG TABLET. PO SCH (08:22)
[2019-09-25] MEDS: ONDANSETRON ODT 4 MG TAB.RAPDIS PO SCH ×3 (08:23→16:25)
[2019-09-25] MEDS: risperiDONE 1 MG TABLET. PO SCH ×2 (08:23→16:25)
[2019-09-25] MEDS: POTASSIUM CHLORIDE 20 MEQ TABLET.ER. PO SCH ×2 (08:23→20:04)
[2019-09-25] MEDS: AMITIZA 8 MCG PO SCH (08:32)
[2019-09-25] MEDS: NYSTATIN TOPICAL POWDER 15GM BOTTLE. TP SCH ×2 (08:32→20:04)
[2019-09-25] MEDS ORDERED: LUBIPROSTONE 8 MCG CAPSULE PO ONE (09:00)
--- NOTE | 2019-09-25 13:30 | NUR ---
Resumed care of pt. Is pleasant. States she hears sister's voice in head. Pt states she is trying to push her out. Also seeing animals in glass of nursing station.
[2019-09-25 16:18] VITALS: BP 131/76
[2019-09-25] MEDS: ATORVASTATIN CALCIUM 10 MG TABLET. PO SCH (20:03)
[2019-09-25] MEDS: traZODone 100 MG TABLET. PO SCH (20:03)
[2019-09-25] MEDS: cloZAPine 25 MG TABLET PO SCH (20:03)
[2019-09-25] MEDS: AMITRIPTYLINE HCL 50 MG TABLET PO SCH (20:04)
[2019-09-25] MEDS: HYDROcodone/APAP 5/325MG 1 TAB TABLET PO PRN (20:50)
--- NOTE | 2019-09-25 21:29 | PDOC ---
Exam Note: Liam Note: Please also refer to the separate dictated note~for this date of service dictated separately.~Patient seen individually. Discussed the patient with Nursing staff reviewed the chart.~Reviewed interim history and current functioning. Reviewed vital signs,~Labs/ Radiology~and current medications noted below. Continue current treatment with the changes noted in the dictated addendum note Assessment: Vital Signs/I&O: Vital Signs Date Time Temp Pulse Resp B/P (MAP) Pulse Ox O2 Delivery O2 Flow Rate FiO2 09/25/19 20:50 96 09/25/19 16:18 98.1 78 19 131/76 (94) 09/24/19 05:37 Room Air I & O 09/24/19 09/24/19 09/25/19 15:00 23:00 07:00 Intake Total 600 ml 360 ml 120 ml Balance 600 ml 360 ml 120 ml Labs: Laboratory Tests Test 09/24/19 22:00 Urine Collection Type Unknown Urine Color Yellow Urine Clarity Clear Urine pH 7.0 Urine Specific [place] 1.015 Urine Protein Neg (NEG-TRACE) Urine Glucose (UA) Neg mg/dL (NEG) Urine Ketones (Stick) Neg mg/dL (NEG) Urine Blood Neg (NEG) Urine Nitrite Neg (NEG) Urine Bilirubin Neg (NEG) Urine Urobilinogen Dipstick 0.2 mg/dL (0.2 mg/dL) Urine Leukocyte Esterase Trace (NEG) Urine RBC 0 /HPF (0-2) Urine WBC 5-10 /HPF (0-4) Urine Squamous Epithelial Cells Occ /LPF Urine Bacteria Few /HPF (0-FEW) Current Medications: Meds: Current Medications Medications (Trade) Dose Ordered Sig/Arden Route PRN Reason Start Time Stop Time Status Last Admin Dose Admin [place] Carbonate 300 mg BID PO 09/25/19 09:00 09/25/19 20:04 I have reviewed the current psychotropics carefully including drug interactions. Risk benefit ratio favors no change other than as noted in my dictated progress note. Diagnosis: Problems: (1) Dementia with behavioral disturbance (2) Schizophrenia, schizo-affective type (3) Anxiety disorder (4) Impulse control disorder (5) Schizophrenia, paranoid, chronic with acute exacerbation ANNMARIE ROMERO MD Sep 25, 2019 21:29
--- NOTE | 2019-09-25 23:19 | PN ---
DATE: 09/23/2019 PSYCHIATRIC PROGRESS NOTE This late entry 09/23/2019 covers elements not covered in my initial note. SUBJECTIVE: I met with the patient evening of 09/23/2019. Per ELISABET Soliz, the patient has been compliant with medications, but extremely psychotic. She has been calling out to Zane and crying. [place] level is 0.4. REVIEW OF SYSTEMS: Ambulation impaired, in wheelchair. No CV, , pulmonary, eye system symptoms on review. MENTAL STATUS EXAM: Oriented to herself and situation. Speech is coherent, a little pressured at times. Abstraction fair, computation impaired, language function intact, attention span short. Mood and affect labile. She was quite tearful, anxious, hyper-buddhist, preoccupied with prayers, talking about Keisha and Zane as I met with her. LABORATORY DATA: Reviewed. IMPRESSION: Schizoaffective disorder, bipolar type, mixed with psychotic features. Rest unchanged. PLAN: Continue current psychotropics. Tegretol has been stopped. She remains on lithium carbonate 300 mg at bedtime. We will increase to 150 a.m. and 300 at bedtime. Increase trazodone to 150 mg at bedtime p.r.n. insomnia since she is sleeping poorly at the lower dosage. Cymbalta has been reduced to 30 mg a day. May consider stopping the amitriptyline 50 mg at bedtime. Maintain Haldol Decanoate as before. Risperdal 1.5 mg a.m., 1 mg at bedtime and Clozaril started 25 mg at bedtime, weekly CBC, absolute neutrophil count and then may consider stopping the Haldol Decanoate, especially since she has been started on the lithium to avoid the Haldol, lithium interaction, since she is still be on a combination of Risperdal and Clozaril. Ultimately I would hope we can get off the Risperdal as well. Adjust combination of lithium and Clozaril should suffice for stabilization, but we will see how it goes and make determination one step at a time. MAN Allyssa ROMERO MD DR: KAMILLE/taya JOB#: [id number] / [id number]
[2019-09-26 06:04] VITALS: BP 116/68
[2019-09-26] MEDS: LORazepam 1 MG TABLET PO SCH ×4 (08:16→20:07)
[2019-09-26] MEDS: MULTIVITAMIN I-VITE TABLET. PO SCH (08:16)
[2019-09-26] MEDS: MONTELUKAST 10 MG TABLET. PO SCH (08:16)
[2019-09-26] MEDS: POTASSIUM CHLORIDE 20 MEQ TABLET.ER. PO SCH ×2 (08:16→20:07)
[2019-09-26] MEDS: MELOXICAM 7.5 MG TABLET PO SCH (08:16)
[2019-09-26] MEDS: LEVOTHYROXINE 50 MCG TABLET PO SCH (08:18)
[2019-09-26] MEDS: GABAPENTIN 100 MG CAPSULE. PO SCH (08:18)
[2019-09-26] MEDS: risperiDONE 1 MG TABLET. PO SCH ×2 (08:18→17:16)
[2019-09-26] MEDS: PANTOPRAZOLE 40 MG TABLET. PO SCH (08:18)
[2019-09-26] MEDS: ASCORBIC ACID 500 MG TABLET PO SCH (08:18)
[2019-09-26] MEDS: ONDANSETRON ODT 4 MG TAB.RAPDIS PO SCH ×3 (08:18→17:17)
[2019-09-26] MEDS: LITHIUM CARBONATE 300 MG TABLET PO SCH ×2 (08:19→20:07)
[2019-09-26] MEDS: FUROSEMIDE 40 MG TABLET PO SCH (08:19)
[2019-09-26] MEDS: DULoxetine HCL 30 MG CAPSULE.DR PO SCH (08:19)
[2019-09-26] MEDS: AMITIZA 8 MCG PO SCH (08:19)
[2019-09-26] MEDS: NYSTATIN TOPICAL POWDER 15GM BOTTLE. TP SCH ×2 (08:20→20:08)
[2019-09-26] MEDS ORDERED: LUBIPROSTONE 8 MCG CAPSULE PO ONE (09:00)
[2019-09-26 11:06] LABS: BASO % 0 % (0-3); EOS # 0.1 x10^3/uL (0.0-0.7); EOS % 1 % (0-3); HEMATOCRIT 39.9 % (36.0-47.0); HEMOGLOBIN 13.2 g/dL (12.0-15.5); LYMPH # 1.1 x10^3/uL (1.0-4.8); LYMPH % 16 % (24-48); MEAN CORPUSCULAR HEMOGLOBIN 31 pg (25-35); MEAN CORPUSCULAR HGB CONC 33 g/dL (31-37); MEAN CORPUSCULAR VOLUME 95 fL (79-100); MONO # 0.5 x10^3/uL (0.0-1.1); MONO % 7 % (0-9); NEUT # 5.3 x10^3uL (1.8-7.7); NEUT % 76 % (31-73); PLATELET COUNT 379 x10^3/uL (140-400); RED BLOOD COUNT 4.21 x10^6/uL (3.50-5.40); RED CELL DISTRIBUTION WIDTH 12.7 % (11.5-14.5)
--- NOTE | 2019-09-26 15:14 | NUR ---
Pt is compliant and pleasant with staff. Pt denies any pain at this time. Pt participates in group therapy. Pt takes medications whole. Pt is in wheelchair. Will continue to monitor and assess appropiate.
--- NOTE | 2019-09-26 15:17 | NUR ---
Pt complaint of back pain. Will continue to monitor and assess as appropiate.
[2019-09-26] MEDS: HYDROcodone/APAP 5/325MG 1 TAB TABLET PO PRN (15:36)
[2019-09-26 15:53] VITALS: BP 130/86
[2019-09-26] MEDS: AMITRIPTYLINE HCL 50 MG TABLET PO SCH (20:06)
[2019-09-26] MEDS: ATORVASTATIN CALCIUM 10 MG TABLET. PO SCH (20:07)
[2019-09-26] MEDS: cloZAPine 25 MG TABLET PO SCH (20:07)
[2019-09-26] MEDS: traZODone 100 MG TABLET. PO SCH ×2 (20:08→21:39)
--- NOTE | 2019-09-26 21:20 | PDOC ---
Exam Note: Liam Note: Please also refer to the separate dictated note~for this date of service dictated separately.~Patient seen individually. Discussed the patient with Nursing staff reviewed the chart.~Reviewed interim history and current functioning. Reviewed vital signs,~Labs/ Radiology~and current medications noted below. Continue current treatment with the changes noted in the dictated addendum note Assessment: Vital Signs/I&O: Vital Signs Date Time Temp Pulse Resp B/P (MAP) Pulse Ox O2 Delivery O2 Flow Rate FiO2 09/26/19 16:36 20 95 09/26/19 15:53 98.2 99 130/86 (101) 09/24/19 05:37 Room Air I & O 09/25/19 09/25/19 09/26/19 15:00 23:00 07:00 Intake Total 480 ml 240 ml 120 ml Balance 480 ml 240 ml 120 ml Labs: Laboratory Tests Test 09/26/19 10:15 White Blood Count 7.0 x10^3/uL (4.0-11.0) Red Blood Count 4.21 x10^6/uL (3.50-5.40) Hemoglobin 13.2 g/dL (12.0-15.5) Hematocrit 39.9 % (36.0-47.0) Mean Corpuscular Volume 95 fL (79-100) Mean Corpuscular Hemoglobin 31 pg (25-35) Mean Corpuscular Hemoglobin Concent 33 g/dL (31-37) Red Cell Distribution Width 12.7 % (11.5-14.5) Platelet Count 379 x10^3/uL (140-400) Neutrophils (%) (Auto) 76 % (31-73) H Lymphocytes (%) (Auto) 16 % (24-48) L Monocytes (%) (Auto) 7 % (0-9) Eosinophils (%) (Auto) 1 % (0-3) Basophils (%) (Auto) 0 % (0-3) Neutrophils # (Auto) 5.3 x10^3uL (1.8-7.7) Lymphocytes # (Auto) 1.1 x10^3/uL (1.0-4.8) Monocytes # (Auto) 0.5 x10^3/uL (0.0-1.1) Eosinophils # (Auto) 0.1 x10^3/uL (0.0-0.7) Basophils # (Auto) 0.0 x10^3/uL (0.0-0.2) Current Medications: Meds: Current Medications Medications (Trade) Dose Ordered Sig/Arden Route PRN Reason Start Time Stop Time Status Last Admin Dose Admin Clozapine (Clozaril) 50 mg HS PO 09/26/19 21:00 09/26/19 20:07 I have reviewed the current psychotropics carefully including drug interactions. Risk benefit ratio favors no change other than as noted in my dictated progress note. Diagnosis: Problems: (1) Dementia with behavioral disturbance (2) Schizophrenia, schizo-affective type (3) Anxiety disorder (4) Impulse control disorder (5) Schizophrenia, paranoid, chronic with acute exacerbation ANNMARIE ROMERO MD Sep 26, 2019 21:20
--- NOTE | 2019-09-26 21:35 | PN ---
DATE: 09/26/2019 PSYCHIATRIC PROGRESS NOTE This late entry 09/24/2019 covers elements not covered in my initial note. SUBJECTIVE: I met with the patient in the evening. Per ELISABET Topete, the patient slept 4-3/4 hours previous night. She has had some intermittent hallucinations. We will check a UA, make sure UTI is not contributing to this. [place] level is 0.4 and we will increase the lithium carbonate from 300 mg at bedtime to 300 mg twice a day. Check CBC, CMP, lithium level in 3 days. REVIEW OF SYSTEMS: Ambulation impaired, in wheelchair. No CV, , pulmonary, eye system symptoms on review. MENTAL STATUS EXAMINATION: Oriented to herself and situation. Speech has some latency, coherent, can be little pressured at times, still hyper-zoroastrian. Abstraction fair, computation impaired, language function intact, attention span short. Mood and affect remains labile. LABORATORY DATA: Reviewed. IMPRESSION: Schizoaffective disorder, bipolar type, mixed with psychotic features; anxiety disorder, unspecified; impulse control disorder, unspecified. PLAN: Continue current psychotropics. Make adjustments as noted above. Rest unchanged for now from initial note. MAN Allyssa ROMERO MD DR: KAMILLE/taya JOB#: [id number] / [id number]
--- NOTE | 2019-09-26 22:03 | PN ---
DATE: 09/25/2019 PSYCHIATRIC PROGRESS NOTE This late entry September 24, covers elements not covered in my initial note. SUBJECTIVE: I met with the patient evening of September 24. Per ELISABET Topete, the patient slept 5 three quarters hours previous night. She did okay until dinner time, then was hyper-catholic, psychotic, paranoid. REVIEW OF SYSTEMS: Ambulation impaired, in wheelchair. No CV, , pulmonary, eye, ENT system symptoms on review. MENTAL STATUS EXAM: Oriented to herself and situation. Speech is coherent, a little pressured at times. Abstraction fair, computation impaired, language function intact, attention span short. Mood and affect remain somewhat anxious, labile. LABORATORY DATA: Reviewed. IMPRESSION: Unchanged from initial note. PLAN: No change from initial note. MAN Allyssa ROMERO MD DR: KAMILLE/taya JOB#: [id number] / [id number]
--- NOTE | 2019-09-27 00:18 | NUR ---
Last evening pt was very delusional saying Zane wanted her to have a Gatorade as well as many other Zane based comments. She took her meds whole without difficulty. PRN Trazodone was given and she went to bed without issue and has been sleeping.
[2019-09-27 06:26] VITALS: BP 123/77
[2019-09-27] MEDS: POTASSIUM CHLORIDE 20 MEQ TABLET.ER. PO SCH ×2 (08:38→20:53)
[2019-09-27] MEDS: GABAPENTIN 100 MG CAPSULE. PO SCH (08:38)
[2019-09-27] MEDS: risperiDONE 1 MG TABLET. PO SCH ×2 (08:39→17:50)
[2019-09-27] MEDS: ASCORBIC ACID 500 MG TABLET PO SCH (08:39)
[2019-09-27] MEDS: ONDANSETRON ODT 4 MG TAB.RAPDIS PO SCH ×3 (08:39→17:50)
[2019-09-27] MEDS: MONTELUKAST 10 MG TABLET. PO SCH (08:40)
[2019-09-27] MEDS: MULTIVITAMIN I-VITE TABLET. PO SCH (08:40)
[2019-09-27] MEDS: MELOXICAM 7.5 MG TABLET PO SCH (08:40)
[2019-09-27] MEDS: DULoxetine HCL 30 MG CAPSULE.DR PO SCH (08:40)
[2019-09-27] MEDS: LITHIUM CARBONATE 300 MG TABLET PO SCH ×2 (08:40→20:53)
[2019-09-27] MEDS: FUROSEMIDE 40 MG TABLET PO SCH (08:41)
[2019-09-27] MEDS: PANTOPRAZOLE 40 MG TABLET. PO SCH (08:41)
[2019-09-27] MEDS: AMITIZA 8 MCG PO SCH (08:41)
[2019-09-27] MEDS: LEVOTHYROXINE 50 MCG TABLET PO SCH (08:41)
[2019-09-27] MEDS: LORazepam 1 MG TABLET PO SCH ×4 (08:41→20:52)
[2019-09-27] MEDS: CHOLECALCIFEROL (VITAMIN D3) 50,000 UNIT CAPSULE PO SCH (08:46)
[2019-09-27] MEDS ORDERED: LUBIPROSTONE 8 MCG CAPSULE PO ONE (09:00)
[2019-09-27 09:39] LABS: BASO % 1 % (0-3); EOS # 0.1 x10^3/uL (0.0-0.7); EOS % 2 % (0-3); HEMATOCRIT 39.5 % (36.0-47.0); LYMPH # 1.1 x10^3/uL (1.0-4.8); LYMPH % 17 % (24-48); MEAN CORPUSCULAR HEMOGLOBIN 31 pg (25-35); MEAN CORPUSCULAR HGB CONC 33 g/dL (31-37); MEAN CORPUSCULAR VOLUME 95 fL (79-100); MONO # 0.4 x10^3/uL (0.0-1.1); MONO % 5 % (0-9); NEUT # 5.1 x10^3uL (1.8-7.7); NEUT % 76 % (31-73); PLATELET COUNT 383 x10^3/uL (140-400); RED BLOOD COUNT 4.17 x10^6/uL (3.50-5.40); RED CELL DISTRIBUTION WIDTH 12.7 % (11.5-14.5); WHITE BLOOD COUNT 6.8 x10^3/uL (4.0-11.0)
[2019-09-27 09:47] LABS: ALBUMIN 4.2 g/dL (3.4-5.0); ALBUMIN/GLOBULIN RATIO 1.1 (1.0-1.7); CALCIUM 9.4 mg/dL (8.5-10.1); CREATININE 0.8 mg/dL (0.6-1.0); GFR 71.1; POTASSIUM 4.2 mmol/L (3.5-5.1); TOTAL BILIRUBIN 0.3 mg/dL (0.2-1.0)
[2019-09-27] MEDS: HYDROcodone/APAP 5/325MG 1 TAB TABLET PO PRN ×2 (10:37→12:48)
[2019-09-27] MEDS: NYSTATIN TOPICAL POWDER 15GM BOTTLE. TP SCH ×2 (11:43→20:53)
[2019-09-27 16:11] VITALS: BP 118/72
--- NOTE | 2019-09-27 17:54 | NUR ---
Patient cooperative and compliant with medications. She stated she had stomach and arm pain and then stated it was "because she was going to be destroyed by Zane". Later in the morning, patient was in the bathroom and scratched a "cross" onto her leg into the bathroom and stated that God told her to do it and that she talks to God. She is up in a wheelchair and able to make her needs known. Patient has delusional thinking and religiosity, and auditory hallucinations at this afternoon. Patient lithium level came back at 0.8mg. Dr. Saha aware/no new orders obtained.
[2019-09-27] MEDS: AMITRIPTYLINE HCL 50 MG TABLET PO SCH (20:52)
[2019-09-27] MEDS: ATORVASTATIN CALCIUM 10 MG TABLET. PO SCH (20:52)
[2019-09-27] MEDS: cloZAPine 25 MG TABLET PO SCH (20:53)
--- NOTE | 2019-09-27 21:30 | PDOC ---
Exam Note: Liam Note: Please also refer to the separate dictated note~for this date of service dictated separately.~Patient seen individually. Discussed the patient with Nursing staff reviewed the chart.~Reviewed interim history and current functioning. Reviewed vital signs,~Labs/ Radiology~and current medications noted below. Continue current treatment with the changes noted in the dictated addendum note Assessment: Vital Signs/I&O: Vital Signs Date Time Temp Pulse Resp B/P (MAP) Pulse Ox O2 Delivery O2 Flow Rate FiO2 09/27/19 16:11 97.6 91 16 118/72 (87) 100 09/27/19 13:49 Room Air I & O 09/26/19 09/26/19 09/27/19 14:59 22:59 06:59 Intake Total 840 ml 480 ml 120 ml Balance 840 ml 480 ml 120 ml Labs: Laboratory Tests Test 09/27/19 09:17 White Blood Count 6.8 x10^3/uL (4.0-11.0) Red Blood Count 4.17 x10^6/uL (3.50-5.40) Hemoglobin 13.0 g/dL (12.0-15.5) Hematocrit 39.5 % (36.0-47.0) Mean Corpuscular Volume 95 fL (79-100) Mean Corpuscular Hemoglobin 31 pg (25-35) Mean Corpuscular Hemoglobin Concent 33 g/dL (31-37) Red Cell Distribution Width 12.7 % (11.5-14.5) Platelet Count 383 x10^3/uL (140-400) Neutrophils (%) (Auto) 76 % (31-73) H Lymphocytes (%) (Auto) 17 % (24-48) L Monocytes (%) (Auto) 5 % (0-9) Eosinophils (%) (Auto) 2 % (0-3) Basophils (%) (Auto) 1 % (0-3) Neutrophils # (Auto) 5.1 x10^3uL (1.8-7.7) Lymphocytes # (Auto) 1.1 x10^3/uL (1.0-4.8) Monocytes # (Auto) 0.4 x10^3/uL (0.0-1.1) Eosinophils # (Auto) 0.1 x10^3/uL (0.0-0.7) Basophils # (Auto) 0.0 x10^3/uL (0.0-0.2) Sodium Level 139 mmol/L (136-145) Potassium Level 4.2 mmol/L (3.5-5.1) Chloride Level 101 mmol/L (98-107) Carbon Dioxide Level 28 mmol/L (21-32) Anion Gap 10 (6-14) Blood Urea Nitrogen 9 mg/dL (7-20) Creatinine 0.8 mg/dL (0.6-1.0) Estimated GFR (Cockcroft-Gault) 71.1 BUN/Creatinine Ratio 11 (6-20) Glucose Level 125 mg/dL (70-99) H Calcium Level 9.4 mg/dL (8.5-10.1) Total Bilirubin 0.3 mg/dL (0.2-1.0) Aspartate Amino Transferase (AST) 20 U/L (15-37) Alanine Aminotransferase (ALT) 24 U/L (14-59) Alkaline Phosphatase 94 U/L (46-116) Total Protein 8.0 g/dL (6.4-8.2) Albumin 4.2 g/dL (3.4-5.0) Albumin/Globulin Ratio 1.1 (1.0-1.7) [place] Level 0.8 mmol/L (0.6-1.2) [place] Last Dose Date 09/26/19 [place] Last Dose Time 2100 Current Medications: I have reviewed the current psychotropics carefully including drug interactions. Risk benefit ratio favors no change other than as noted in my dictated progress note. Diagnosis: Problems: (1) Dementia with behavioral disturbance (2) Schizophrenia, schizo-affective type (3) Medical clearance for psychiatric admission (4) Anxiety disorder (5) Impulse control disorder (6) Schizophrenia, paranoid, chronic with acute exacerbation ANNMARIE ROMERO MD Sep 27, 2019 21:30
--- NOTE | 2019-09-28 00:22 | PN ---
DATE: 09/26/2019 PSYCHIATRIC PROGRESS NOTE This late entry 09/26/2019 covers elements not covered in my initial note. SUBJECTIVE: I met with the patient evening of 09/26/2019. Per ELISABET Draper, the patient slept 7 hours previous night. Absolute neutrophil count is 5320. She threw herself on the floor while praying earlier in the day and is quite religiously preoccupied. REVIEW OF SYSTEMS: Ambulation impaired, in wheelchair. No CV, , pulmonary, eye system symptoms on review. She has vague somatic symptoms. MENTAL STATUS EXAM: Oriented reasonably. Speech is coherent, has some latency, can be rapid at times. Abstraction fair, computation impaired, language function intact, attention span short. Mood and affect remains labile, somewhat grandiose, psychotic, paranoid. LABORATORY DATA: Reviewed. No active suicidal ideation. IMPRESSION: Schizoaffective disorder, bipolar type, mixed with psychotic features; anxiety disorder, unspecified; impulse control disorder, unspecified. PLAN: Increase Clozaril to 50 mg at bedtime. Maintain the Haldol Decanoate, Cymbalta, amitriptyline, Ativan, trazodone, Risperdal, and lithium at current dosage. We will gradually reduce the Risperdal and Haldol as she stabilizes on the Clozaril. Rest unchanged. MAN Allyssa ROMERO MD DR: KAMILLE/taya JOB#: [id number] / [id number]
[2019-09-28 05:59] VITALS: BP 124/70
[2019-09-28] MEDS: ACETAMINOPHEN 325 MG TABLET PO PRN ×2 (07:35→21:31)
[2019-09-28] MEDS: GABAPENTIN 100 MG CAPSULE. PO SCH ×2 (07:35→10:23)
--- NOTE | 2019-09-28 07:43 | NUR ---
Patient was at nursing station stating that she had a headache and wanted some tylenol with a glass of water. Nurse pulled PRN tylenol from [employer] and took it to patient. Nurse opened medication in front of patient, who then looked at medication in cup and said "I'm not taking that, it's not tylenol". Nurse showed patient the medication package, patient continued to deny that it was tylenol. Nurse had JACQUARD CARD LACER verify to patient that the package said it was tylenol but patient continued to refuse medication and told nurse "take it away, it is poisoned". Patient also refused the cup of water that she had asked for. Will try to give tylenol to patient with morning medications if she still has a headache at that them. Addendum: 09/28/19 at 0749 by GIO FONSECA RN correction: If patient still has a headache at that time.
[2019-09-28] MEDS ORDERED: LUBIPROSTONE 8 MCG CAPSULE PO ONE (09:00)
[2019-09-28] MEDS: MONTELUKAST 10 MG TABLET. PO SCH (10:23)
[2019-09-28] MEDS: LEVOTHYROXINE 50 MCG TABLET PO SCH (10:23)
[2019-09-28] MEDS: ONDANSETRON ODT 4 MG TAB.RAPDIS PO SCH ×3 (10:24→17:20)
[2019-09-28] MEDS: ASCORBIC ACID 500 MG TABLET PO SCH (10:24)
[2019-09-28] MEDS: risperiDONE 1 MG TABLET. PO SCH ×2 (10:24→17:20)
[2019-09-28] MEDS: DULoxetine HCL 30 MG CAPSULE.DR PO SCH (10:24)
[2019-09-28] MEDS: MULTIVITAMIN I-VITE TABLET. PO SCH (10:24)
[2019-09-28] MEDS: MELOXICAM 7.5 MG TABLET PO SCH (10:25)
[2019-09-28] MEDS: LITHIUM CARBONATE 300 MG TABLET PO SCH ×2 (10:25→19:45)
[2019-09-28] MEDS: LORazepam 1 MG TABLET PO SCH ×4 (10:25→19:45)
[2019-09-28] MEDS: PANTOPRAZOLE 40 MG TABLET. PO SCH (10:25)
[2019-09-28] MEDS: POTASSIUM CHLORIDE 20 MEQ TABLET.ER. PO SCH ×2 (10:26→19:44)
[2019-09-28] MEDS: FUROSEMIDE 40 MG TABLET PO SCH (10:26)
[2019-09-28] MEDS: AMITIZA 8 MCG PO SCH (10:27)
[2019-09-28] MEDS: NYSTATIN TOPICAL POWDER 15GM BOTTLE. TP SCH ×2 (10:27→21:33)
[2019-09-28 15:59] VITALS: BP 133/79
[2019-09-28] MEDS: cloZAPine 25 MG TABLET PO SCH (19:44)
[2019-09-28] MEDS: AMITRIPTYLINE HCL 50 MG TABLET PO SCH (19:45)
[2019-09-28] MEDS: ATORVASTATIN CALCIUM 10 MG TABLET. PO SCH (19:45)
[2019-09-28] MEDS: traZODone 100 MG TABLET. PO SCH (19:46)
--- NOTE | 2019-09-28 21:27 | PDOC ---
Exam Note: Liam Note: Please also refer to the separate dictated note~for this date of service dictated separately.~Patient seen individually. Discussed the patient with Nursing staff reviewed the chart.~Reviewed interim history and current functioning. Reviewed vital signs,~Labs/ Radiology~and current medications noted below. Continue current treatment with the changes noted in the dictated addendum note Assessment: Vital Signs/I&O: Vital Signs Date Time Temp Pulse Resp B/P (MAP) Pulse Ox O2 Delivery O2 Flow Rate FiO2 09/28/19 15:59 97.6 95 16 133/79 (97) 98 09/27/19 13:49 Room Air I & O 09/27/19 09/27/19 09/28/19 15:00 23:00 07:00 Intake Total 720 ml 360 ml Balance 720 ml 360 ml Current Medications: I have reviewed the current psychotropics carefully including drug interactions. Risk benefit ratio favors no change other than as noted in my dictated progress note. Diagnosis: Problems: (1) Dementia with behavioral disturbance (2) Schizophrenia, schizo-affective type (3) Medical clearance for psychiatric admission (4) Anxiety disorder (5) Impulse control disorder (6) Schizophrenia, paranoid, chronic with acute exacerbation ANNMARIE ROMERO MD Sep 28, 2019 21:27
--- NOTE | 2019-09-28 22:39 | NUR ---
This evening pt has been wheeling self around unit was social with peers and has been cooperative. HS meds were taken without issue. PRN tylenol given later for PATHAK and pt had nurse check with Zane to see if she should take it or not, after he approved it she took the med. This was the first time she has made a orthodoxy reference to nurse on this shift.
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
[2019-09-29] MEDS: LEVOTHYROXINE 50 MCG TABLET PO SCH (05:06)
[2019-09-29] MEDS: ACETAMINOPHEN 325 MG TABLET PO PRN ×2 (05:07→13:10)
[2019-09-29 06:11] VITALS: BP 116/74
[2019-09-29] MEDS: ONDANSETRON ODT 4 MG TAB.RAPDIS PO SCH ×3 (08:18→17:33)
[2019-09-29] MEDS: POTASSIUM CHLORIDE 20 MEQ TABLET.ER. PO SCH ×2 (08:18→21:25)
[2019-09-29] MEDS: LORazepam 1 MG TABLET PO SCH ×4 (08:18→21:31)
[2019-09-29] MEDS: LITHIUM CARBONATE 300 MG TABLET PO SCH ×2 (08:18→21:25)
[2019-09-29] MEDS: MELOXICAM 7.5 MG TABLET PO SCH (08:18)
[2019-09-29] MEDS: PANTOPRAZOLE 40 MG TABLET. PO SCH (08:19)
[2019-09-29] MEDS: ASCORBIC ACID 500 MG TABLET PO SCH (08:19)
[2019-09-29] MEDS: MULTIVITAMIN I-VITE TABLET. PO SCH (08:19)
[2019-09-29] MEDS: MONTELUKAST 10 MG TABLET. PO SCH (08:19)
[2019-09-29] MEDS: DULoxetine HCL 30 MG CAPSULE.DR PO SCH (08:19)
[2019-09-29] MEDS: FUROSEMIDE 40 MG TABLET PO SCH (08:19)
[2019-09-29] MEDS: NYSTATIN TOPICAL POWDER 15GM BOTTLE. TP SCH ×2 (08:20→21:26)
[2019-09-29] MEDS: AMITIZA 8 MCG PO SCH (08:20)
[2019-09-29] MEDS: risperiDONE 1 MG TABLET. PO SCH ×2 (08:20→17:33)
[2019-09-29] MEDS ORDERED: LUBIPROSTONE 8 MCG CAPSULE PO ONE (09:00)
--- NOTE | 2019-09-29 11:11 | NUR ---
SW invited pt. to participate in treatment team, however, pt. declined stating she was waiting on "Zane" to come. CECILY contacted Salazar, Nurse at [facility], to discuss pt. and a tentative discharge for the end of next week.
--- NOTE | 2019-09-29 11:22 | NUR ---
WEEKLY ACTIVITY THERAPY NOTE Date of Admission: 09/11/2019 Date of AT Assessment: 09/14/2019 Goal aimed: to increase engagement and socialization Initial goal: Pt. will participate in at least three Activity Therapy groups or individual sessions before discharge. Weekly progress towards goal: exceeded, 8 groups this week, 04/28 for goal Group participation level:3 full, 1 mod, 4 min Weekly highlights: rainbow chain on Thursday Behaviors observed: wandering, religiosity, labile, difficult to hold attention Plan: change goal to: Pt. will participate in at least five Activity Therapy groups per week. Beneficial adaptations:
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
[2019-09-29 16:26] VITALS: BP 136/80
--- NOTE | 2019-09-29 21:23 | PDOC ---
Exam Note: Liam Note: Please also refer to the separate dictated note~for this date of service dictated separately.~Patient seen individually. Discussed the patient with Nursing staff reviewed the chart.~Reviewed interim history and current functioning. Reviewed vital signs,~Labs/ Radiology~and current medications noted below. Continue current treatment with the changes noted in the dictated addendum note Assessment: Vital Signs/I&O: Vital Signs Date Time Temp Pulse Resp B/P (MAP) Pulse Ox O2 Delivery O2 Flow Rate FiO2 09/29/19 16:26 99.7 92 20 136/80 (98) 94 09/29/19 06:11 Room Air I & O 09/28/19 09/28/19 09/29/19 15:00 23:00 07:00 Intake Total 480 ml 900 ml Balance 480 ml 900 ml Current Medications: I have reviewed the current psychotropics carefully including drug interactions. Risk benefit ratio favors no change other than as noted in my dictated progress note. Diagnosis: Problems: (1) Dementia with behavioral disturbance (2) Schizophrenia, schizo-affective type (3) Anxiety disorder (4) Impulse control disorder (5) Schizophrenia, paranoid, chronic with acute exacerbation ANNMARIE ROMERO MD Sep 29, 2019 21:23
[2019-09-29] MEDS: traZODone 100 MG TABLET. PO SCH (21:24)
[2019-09-29] MEDS: AMITRIPTYLINE HCL 50 MG TABLET PO SCH (21:25)
[2019-09-29] MEDS: ATORVASTATIN CALCIUM 10 MG TABLET. PO SCH (21:25)
[2019-09-29] MEDS: cloZAPine 25 MG TABLET PO SCH (21:25)
--- NOTE | 2019-09-30 00:04 | NUR ---
Nursing Note The patient was located in the hallway for her assessment and medication pass. The patient took her HS medications whole. The patient was pleasant during interactions with this nurse and other staff. The patient is currently sleeping in her room.
[2019-09-30] MEDS: LEVOTHYROXINE 50 MCG TABLET PO SCH (06:11)
[2019-09-30] MEDS: PANTOPRAZOLE 40 MG TABLET. PO SCH (06:13)
[2019-09-30] MEDS: ACETAMINOPHEN 325 MG TABLET PO PRN (06:13)
[2019-09-30] MEDS: ONDANSETRON ODT 4 MG TAB.RAPDIS PO SCH ×3 (06:13→17:27)
[2019-09-30 07:03] VITALS: BP 96/64
[2019-09-30] MEDS: NYSTATIN TOPICAL POWDER 15GM BOTTLE. TP SCH ×2 (08:26→21:58)
[2019-09-30] MEDS: GABAPENTIN 100 MG CAPSULE. PO SCH (08:26)
[2019-09-30] MEDS: MELOXICAM 7.5 MG TABLET PO SCH (08:26)
[2019-09-30] MEDS: MONTELUKAST 10 MG TABLET. PO SCH (08:27)
[2019-09-30] MEDS: FUROSEMIDE 40 MG TABLET PO SCH (08:27)
[2019-09-30] MEDS: MULTIVITAMIN I-VITE TABLET. PO SCH (08:27)
[2019-09-30] MEDS: POTASSIUM CHLORIDE 20 MEQ TABLET.ER. PO SCH ×2 (08:27→21:58)
[2019-09-30] MEDS: ASCORBIC ACID 500 MG TABLET PO SCH (08:27)
[2019-09-30] MEDS: LITHIUM CARBONATE 300 MG TABLET PO SCH ×2 (08:27→21:58)
[2019-09-30] MEDS: DULoxetine HCL 30 MG CAPSULE.DR PO SCH (08:27)
[2019-09-30] MEDS: LORazepam 1 MG TABLET PO SCH ×4 (08:27→21:58)
[2019-09-30] MEDS: risperiDONE 1 MG TABLET. PO SCH ×2 (08:28→17:27)
[2019-09-30] MEDS: AMITIZA 8 MCG PO SCH (08:29)
[2019-09-30] MEDS ORDERED: LUBIPROSTONE 8 MCG CAPSULE PO ONE (09:00)
--- NOTE | 2019-09-30 10:33 | NUR ---
Pt has been calm and drowsy this morning. Compliant with whole medications. No delusions noted thus far. Pt currently located in the dayroom sleeping in her wheelchair. Will continue to monitor.
[2019-09-30 15:44] VITALS: BP 105/76
--- NOTE | 2019-09-30 20:02 | PN ---
DATE: 09/28/2019 PSYCHIATRIC PROGRESS NOTE This late entry 09/28/2019 covers the elements not covered in my initial note. SUBJECTIVE: I met with the patient in the evening of 09/28/2019. Per ELISABET Mcelroy, the patient slept 8-3/4 hours previous night. She has been paranoid, suspicious, believes the medication, she has been given are poison, took it later. UA is negative. REVIEW OF SYSTEMS: Ambulation impaired, in wheelchair. No CV, , pulmonary, eye system symptoms on review. She remains quite hyper-sikhism. MENTAL STATUS EXAM: Oriented to herself and situation. Speech has some latency, coherent, often responses monosyllabic. Abstraction fair, computation impaired, language function intact. Mood and affect withdrawn. LABORATORY DATA: Reviewed. IMPRESSION: Unchanged from initial note. PLAN: No change from initial note. MAN Allyssa ROMERO MD DR: KAMILLE/taya JOB#: [id number] / [id number]
--- NOTE | 2019-09-30 20:10 | PN ---
DATE: 09/29/2019 PSYCHIATRIC PROGRESS NOTE This late entry, 09/28, covers the elements not covered in my initial note. SUBJECTIVE: I met with the patient in the evening of 09/28 and staffed at a treatment team meeting with the entire team in the morning. Reviewed the patient's history, diagnosis, progress. She is sleeping average 6-1/2 hours. Appetite 75%. At times, she refuses her medications, but responsive. She is given the opportunity to talk to her ex-, Kyler. We are gradually increasing the Clozaril, currently at 50 mg at bedtime post-weekly blood counts. REVIEW OF SYSTEMS: Ambulation impaired, in wheelchair. No CV, , pulmonary, eye systems symptoms on review. MENTAL STATUS EXAM: Oriented to herself and situation. Speech has some latency, coherent. Abstraction fair, computation impaired, language function intact, attention span short. Mood and affect withdrawn. LABORATORY DATA: Reviewed. IMPRESSION: Schizoaffective disorder, bipolar type, mixed with psychotic features, slowly improving. Rest unchanged. PLAN: No change from initial note. Increase the Clozaril gradually. Maintain Haldol Decanoate. Stop the amitriptyline 50 mg at bedtime since it could be worsening her manic symptoms, mood lability. Maintain lithium carbonate at current dosage, level therapeutic at 0.8. Continue Risperdal, Cymbalta for now, the latter reduced to 30 mg a day. MAN Allyssa ROMERO MD DR: KAMILLE/taya JOB#: [id number] / [id number]
--- NOTE | 2019-09-30 21:25 | PDOC ---
Exam Note: Liam Note: Please also refer to the separate dictated note~for this date of service dictated separately.~Patient seen individually. Discussed the patient with Nursing staff reviewed the chart.~Reviewed interim history and current functioning. Reviewed vital signs,~Labs/ Radiology~and current medications noted below. Continue current treatment with the changes noted in the dictated addendum note Assessment: Vital Signs/I&O: Vital Signs Date Time Temp Pulse Resp B/P (MAP) Pulse Ox O2 Delivery O2 Flow Rate FiO2 09/30/19 15:44 97.2 87 22 105/76 (86) 98 09/29/19 06:11 Room Air I & O 09/29/19 09/29/19 09/30/19 15:00 23:00 07:00 Intake Total 480 ml 240 ml 240 ml Balance 480 ml 240 ml 240 ml Current Medications: I have reviewed the current psychotropics carefully including drug interactions. Risk benefit ratio favors no change other than as noted in my dictated progress note. Diagnosis: Problems: (1) Dementia with behavioral disturbance (2) Schizophrenia, schizo-affective type (3) Medical clearance for psychiatric admission (4) Anxiety disorder (5) Impulse control disorder (6) Schizophrenia, paranoid, chronic with acute exacerbation ANNMARIE ROMERO MD Sep 30, 2019 21:25
[2019-09-30] MEDS: ATORVASTATIN CALCIUM 10 MG TABLET. PO SCH (21:58)
[2019-09-30] MEDS: cloZAPine 25 MG TABLET PO SCH (21:58)
[2019-09-30] MEDS: traZODone 100 MG TABLET. PO SCH (21:59)
[2019-09-30] MEDS: AMITRIPTYLINE HCL 50 MG TABLET PO SCH (21:59)
--- NOTE | 2019-10-01 00:32 | NUR ---
Nursing Note The patient was withdrawn and drowsy this shift. The patient stated that she felt sick with a sore throat and body aches. The patients vitals were all within normal range except her Temp which was 99.0. The patient remains in bed sleeping at this time.
[2019-10-01] MEDS: HYDROcodone/APAP 5/325MG 1 TAB TABLET PO PRN (06:14)
[2019-10-01 06:36] VITALS: BP 111/70
[2019-10-01] MEDS: ONDANSETRON ODT 4 MG TAB.RAPDIS PO SCH ×3 (08:43→17:09)
[2019-10-01] MEDS: PANTOPRAZOLE 40 MG TABLET. PO SCH (08:43)
[2019-10-01] MEDS: LEVOTHYROXINE 50 MCG TABLET PO SCH (08:43)
[2019-10-01] MEDS: MULTIVITAMIN I-VITE TABLET. PO SCH (08:44)
[2019-10-01] MEDS: POTASSIUM CHLORIDE 20 MEQ TABLET.ER. PO SCH ×2 (08:44→20:43)
[2019-10-01] MEDS: DULoxetine HCL 30 MG CAPSULE.DR PO SCH (08:44)
[2019-10-01] MEDS: LITHIUM CARBONATE 300 MG TABLET PO SCH ×2 (08:44→20:44)
[2019-10-01] MEDS: AMITIZA 8 MCG PO SCH (08:44)
[2019-10-01] MEDS: FUROSEMIDE 40 MG TABLET PO SCH (08:44)
[2019-10-01] MEDS: NYSTATIN TOPICAL POWDER 15GM BOTTLE. TP SCH ×2 (08:45→20:44)
[2019-10-01] MEDS: ASCORBIC ACID 500 MG TABLET PO SCH (08:45)
[2019-10-01] MEDS: MONTELUKAST 10 MG TABLET. PO SCH (08:45)
[2019-10-01] MEDS: risperiDONE 1 MG TABLET. PO SCH ×2 (08:45→17:09)
[2019-10-01] MEDS: MELOXICAM 7.5 MG TABLET PO SCH (08:45)
[2019-10-01] MEDS: LORazepam 1 MG TABLET PO SCH ×4 (08:49→20:44)
[2019-10-01] MEDS: GABAPENTIN 100 MG CAPSULE. PO SCH (08:49)
[2019-10-01] MEDS ORDERED: LUBIPROSTONE 8 MCG CAPSULE PO ONE (09:00)
--- NOTE | 2019-10-01 11:07 | NUR ---
Pt is calm, cooperative, compliant. No agitation, no aggression, no hallucinations, no delusions noted. She is compliant with her medication and assessment.
--- NOTE | 2019-10-01 13:38 | NUR ---
Pt requested "something for my nerves" stating she feels anxious. PRN michela friend given
[2019-10-01 15:57] VITALS: BP 107/59
[2019-10-01] MEDS: ATORVASTATIN CALCIUM 10 MG TABLET. PO SCH (20:43)
[2019-10-01] MEDS: AMITRIPTYLINE HCL 50 MG TABLET PO SCH (20:43)
[2019-10-01] MEDS: traZODone 100 MG TABLET. PO SCH (20:44)
[2019-10-01] MEDS: cloZAPine 25 MG TABLET PO SCH (20:44)
--- NOTE | 2019-10-01 21:17 | PDOC ---
Exam Note: Liam Note: Please also refer to the separate dictated note~for this date of service dictated separately.~Patient seen individually. Discussed the patient with Nursing staff reviewed the chart.~Reviewed interim history and current functioning. Reviewed vital signs,~Labs/ Radiology~and current medications noted below. Continue current treatment with the changes noted in the dictated addendum note Assessment: Vital Signs/I&O: Vital Signs Date Time Temp Pulse Resp B/P (MAP) Pulse Ox O2 Delivery O2 Flow Rate FiO2 10/01/19 15:57 97.7 84 16 107/59 (75) 97 09/29/19 06:11 Room Air I & O 09/30/19 09/30/19 10/01/19 15:00 23:00 07:00 Intake Total 480 ml 240 ml 240 ml Balance 480 ml 240 ml 240 ml Current Medications: I have reviewed the current psychotropics carefully including drug interactions. Risk benefit ratio favors no change other than as noted in my dictated progress note. Diagnosis: Problems: (1) Dementia with behavioral disturbance (2) Schizophrenia, schizo-affective type (3) Medical clearance for psychiatric admission (4) Anxiety disorder (5) Impulse control disorder (6) Schizophrenia, paranoid, chronic with acute exacerbation ANNMARIE ROMERO MD Oct 01, 2019 21:17
[2019-10-01] MEDS: MAG HYDROX/AL HYDROX/SIMETH 30 ML ORAL.SUSP PO PRN (21:54)
[2019-10-01 23:10] LABS: BILIRUBIN,URINE NEG (NEG); CLARITY,URINE HAZY; COLOR,URINE YELLOW; GLUCOSE,URINE NEG (NEG)
[2019-10-01 23:11] LABS: BACTERIA,URINE MOD /HPF (0-FEW); NITRITE,URINE NEG (NEG); SQUAMOUS EPITHELIAL CELL,UR MANY /LPF; WBC,URINE 20-40 /HPF (0-4)
[2019-10-01 23:38] LABS: ALBUMIN 3.4 g/dL (3.4-5.0); ALBUMIN/GLOBULIN RATIO 1.2 (1.0-1.7); CALCIUM 8.5 mg/dL (8.5-10.1); CREATININE 0.8 mg/dL (0.6-1.0); GFR 71.1; POTASSIUM 4.1 mmol/L (3.5-5.1); TOTAL BILIRUBIN 0.2 mg/dL (0.2-1.0); TOTAL PROTEIN 6.3 g/dL (6.4-8.2)
--- NOTE | 2019-10-02 04:32 | NUR ---
Nursing Note The patient was located in her room for her assessment and medication pass. The patient requested Mylanta for an upset stomach which she received@HS. The patient was calm and compliant with cares and assessment. the patient is currently sleeping in her room.
[2019-10-02] MEDS: ONDANSETRON ODT 4 MG TAB.RAPDIS PO SCH ×3 (06:10→17:11)
[2019-10-02] MEDS: LEVOTHYROXINE 50 MCG TABLET PO SCH (06:10)
[2019-10-02] MEDS: HYDROcodone/APAP 5/325MG 1 TAB TABLET PO PRN ×2 (06:12→17:11)
[2019-10-02 06:24] VITALS: BP 107/70
[2019-10-02 07:46] LABS: BASO % 1 % (0-3); EOS # 0.3 x10^3/uL (0.0-0.7); EOS % 4 % (0-3); HEMATOCRIT 36.4 % (36.0-47.0); HEMOGLOBIN 12.2 g/dL (12.0-15.5); LYMPH # 1.4 x10^3/uL (1.0-4.8); LYMPH % 18 % (24-48); MEAN CORPUSCULAR HEMOGLOBIN 32 pg (25-35); MEAN CORPUSCULAR HGB CONC 34 g/dL (31-37); MEAN CORPUSCULAR VOLUME 95 fL (79-100); MONO # 0.4 x10^3/uL (0.0-1.1); MONO % 5 % (0-9); NEUT # 5.4 x10^3uL (1.8-7.7); NEUT % 72 % (31-73); PLATELET COUNT 331 x10^3/uL (140-400); RED BLOOD COUNT 3.85 x10^6/uL (3.50-5.40); RED CELL DISTRIBUTION WIDTH 12.6 % (11.5-14.5); WHITE BLOOD COUNT 7.5 x10^3/uL (4.0-11.0)
[2019-10-02] MEDS: PANTOPRAZOLE 40 MG TABLET. PO SCH (08:18)
[2019-10-02] MEDS: POTASSIUM CHLORIDE 20 MEQ TABLET.ER. PO SCH ×2 (08:19→20:11)
[2019-10-02] MEDS: DULoxetine HCL 30 MG CAPSULE.DR PO SCH (08:19)
[2019-10-02] MEDS: LITHIUM CARBONATE 300 MG TABLET PO SCH ×2 (08:19→20:12)
[2019-10-02] MEDS: MULTIVITAMIN I-VITE TABLET. PO SCH (08:19)
[2019-10-02] MEDS: AMITIZA 8 MCG PO SCH (08:19)
[2019-10-02] MEDS: risperiDONE 1 MG TABLET. PO SCH ×2 (08:20→17:11)
[2019-10-02] MEDS: MONTELUKAST 10 MG TABLET. PO SCH (08:20)
[2019-10-02] MEDS: MELOXICAM 7.5 MG TABLET PO SCH (08:20)
[2019-10-02] MEDS: FUROSEMIDE 40 MG TABLET PO SCH (08:20)
[2019-10-02] MEDS: ASCORBIC ACID 500 MG TABLET PO SCH (08:20)
[2019-10-02] MEDS: LORazepam 1 MG TABLET PO SCH ×4 (08:24→20:10)
[2019-10-02] MEDS: GABAPENTIN 100 MG CAPSULE. PO SCH (08:24)
[2019-10-02] MEDS: NYSTATIN TOPICAL POWDER 15GM BOTTLE. TP SCH ×2 (09:00→20:10)
[2019-10-02] MEDS ORDERED: LUBIPROSTONE 8 MCG CAPSULE PO ONE (09:00)
--- NOTE | 2019-10-02 09:25 | NUR ---
She is compliant with her medication and assessment. Pt is calm, cooperative, compliant. No agitation, no aggression, no hallucinations, no delusions noted.
[2019-10-02 15:32] VITALS: BP 140/78
[2019-10-02] MEDS: cloZAPine 25 MG TABLET PO SCH (20:10)
[2019-10-02] MEDS: ATORVASTATIN CALCIUM 10 MG TABLET. PO SCH (20:11)
[2019-10-02] MEDS: traZODone 100 MG TABLET. PO SCH (20:11)
[2019-10-02] MEDS: AMITRIPTYLINE HCL 50 MG TABLET PO SCH (20:12)
--- NOTE | 2019-10-02 21:45 | NUR ---
Patient is in the day room on assumption of care. She is in pleasant spirits. Calm, cooperative and compliant with medications and assessments. Stayed mostly withdrawn to her room this shift. No agitation. No hallucinations or delusions noted. Denies pain or discomfort. Denies SI.
--- NOTE | 2019-10-02 22:08 | PN ---
DATE: 10/01/2019 PSYCHIATRIC PROGRESS NOTE This late entry 10/01/2019 covers the elements not covered in my initial note. SUBJECTIVE: I met with the patient in the evening of 10/01/2019. Per ELISABET Jimenez, the patient slept 7-1/2 hours previous night. She takes her medications whole. No more fever like she had 2 nights ago. We will defer to Dr. Hunt. We will check a lithium level in the morning of 10/02/2019. REVIEW OF SYSTEMS: Ambulation impaired, in wheelchair. No CV, , pulmonary, eye system symptoms on review. MENTAL STATUS EXAM: Oriented to herself and situation. Speech has some latency, coherent, at times pressured. Abstraction fair, computation impaired, language function intact. Mood and affect somewhat withdrawn. LABORATORY DATA: Reviewed. IMPRESSION: Unchanged from initial note. PLAN: No change from initial note. MAN Allyssa ROMERO MD DR: KAMILLE/taya JOB#: [id number] / [id number]
--- NOTE | 2019-10-02 22:11 | PN ---
DATE: 09/30/2019 This late entry 09/30/2019 covers elements not covered in my initial note. SUBJECTIVE: I met with the patient in evening of 09/30/2019. Per José RN, the patient slept 6-3/4 hours previous night. She has had some cough. Lung sounds are clear. I will defer to Dr. Hunt. She remains hyper-pentecostalism, talking about Zane and very detailed about this. Addressed this with her individually. REVIEW OF SYSTEMS: Ambulation impaired, in wheelchair. No CV, , pulmonary, eye system symptoms on review, does complain of tiredness. MENTAL STATUS EXAM: Oriented to herself and situation. Speech has some latency, coherent, less pressured. Abstraction fair, computation impaired, language function intact. Mood and affect somewhat anxious, labile. LABORATORY DATA: Reviewed. IMPRESSION: Unchanged from initial note. PLAN: No change from initial note. MAN Allyssa ROMERO MD DR: KAMILLE/taya JOB#: [id number] / [id number]
--- NOTE | 2019-10-02 22:39 | PDOC ---
Exam Note: Liam Note: Please also refer to the separate dictated note~for this date of service dictated separately.~Patient seen individually. Discussed the patient with Nursing staff reviewed the chart.~Reviewed interim history and current functioning. Reviewed vital signs,~Labs/ Radiology~and current medications noted below. Continue current treatment with the changes noted in the dictated addendum note Assessment: Vital Signs/I&O: Vital Signs Date Time Temp Pulse Resp B/P (MAP) Pulse Ox O2 Delivery O2 Flow Rate FiO2 10/02/19 18:11 20 10/02/19 15:32 97.6 98 140/78 (98) 98 10/02/19 06:12 Room Air I & O 10/01/19 10/01/19 10/02/19 15:00 23:00 07:00 Intake Total 600 ml 240 ml Balance 600 ml 240 ml Labs: Laboratory Tests Test 10/01/19 22:49 10/01/19 23:15 10/02/19 06:56 Urine Collection Type Unknown Urine Color Yellow Urine Clarity Hazy Urine pH 7.0 Urine Specific [place] 1.010 Urine Protein Neg (NEG-TRACE) Urine Glucose (UA) Neg mg/dL (NEG) Urine Ketones (Stick) Neg mg/dL (NEG) Urine Blood Trace (NEG) Urine Nitrite Neg (NEG) Urine Bilirubin Neg (NEG) Urine Urobilinogen Dipstick 1.0 mg/dL (0.2 mg/dL) Urine Leukocyte Esterase Small (NEG) Urine RBC 3-5 /HPF (0-2) Urine WBC 20-40 /HPF (0-4) Urine Squamous Epithelial Cells Many /LPF Urine Transitional Epithelial Cells Few /LPF Urine Bacteria Mod /HPF (0-FEW) Sodium Level 140 mmol/L (136-145) Potassium Level 4.1 mmol/L (3.5-5.1) Chloride Level 104 mmol/L (98-107) Carbon Dioxide Level 28 mmol/L (21-32) Anion Gap 8 (6-14) Blood Urea Nitrogen 9 mg/dL (7-20) Creatinine 0.8 mg/dL (0.6-1.0) Estimated GFR (Cockcroft-Gault) 71.1 BUN/Creatinine Ratio 11 (6-20) Glucose Level 110 mg/dL (70-99) H Calcium Level 8.5 mg/dL (8.5-10.1) Total Bilirubin 0.2 mg/dL (0.2-1.0) Aspartate Amino Transferase (AST) 15 U/L (15-37) Alanine Aminotransferase (ALT) 18 U/L (14-59) Alkaline Phosphatase 79 U/L (46-116) Total Protein 6.3 g/dL (6.4-8.2) L Albumin 3.4 g/dL (3.4-5.0) Albumin/Globulin Ratio 1.2 (1.0-1.7) [place] Level 1.2 mmol/L (0.6-1.2) [place] Last Dose Date 10/01/19 [place] Last Dose Time 2100 White Blood Count 7.5 x10^3/uL (4.0-11.0) Red Blood Count 3.85 x10^6/uL (3.50-5.40) Hemoglobin 12.2 g/dL (12.0-15.5) Hematocrit 36.4 % (36.0-47.0) Mean Corpuscular Volume 95 fL (79-100) Mean Corpuscular Hemoglobin 32 pg (25-35) Mean Corpuscular Hemoglobin Concent 34 g/dL (31-37) Red Cell Distribution Width 12.6 % (11.5-14.5) Platelet Count 331 x10^3/uL (140-400) Neutrophils (%) (Auto) 72 % (31-73) Lymphocytes (%) (Auto) 18 % (24-48) L Monocytes (%) (Auto) 5 % (0-9) Eosinophils (%) (Auto) 4 % (0-3) H Basophils (%) (Auto) 1 % (0-3) Neutrophils # (Auto) 5.4 x10^3uL (1.8-7.7) Lymphocytes # (Auto) 1.4 x10^3/uL (1.0-4.8) Monocytes # (Auto) 0.4 x10^3/uL (0.0-1.1) Eosinophils # (Auto) 0.3 x10^3/uL (0.0-0.7) Basophils # (Auto) 0.0 x10^3/uL (0.0-0.2) Current Medications: Meds: Current Medications Medications (Trade) Dose Ordered Sig/[place]den Route PRN Reason Start Time Stop Time Status Last Admin Dose Admin Levothyroxine Sodium (Synthroid) 50 mcg DAILY06 PO 10/02/19 06:00 10/02/19 06:10 I have reviewed the current psychotropics carefully including drug interactions. Risk benefit ratio favors no change other than as noted in my dictated progress note. Diagnosis: Problems: (1) Dementia with behavioral disturbance (2) Schizophrenia, schizo-affective type (3) Anxiety disorder (4) Impulse control disorder (5) Schizophrenia, paranoid, chronic with acute exacerbation ANNMARIE ROMERO MD Oct 02, 2019 22:39
[2019-10-03] MEDS: HYDROcodone/APAP 5/325MG 1 TAB TABLET PO PRN ×2 (05:31→18:42)
[2019-10-03] MEDS: LEVOTHYROXINE 50 MCG TABLET PO SCH (05:31)
--- NOTE | 2019-10-03 05:45 | NUR ---
Patient complaining of 8/10 headache, requesting PRN Lortab. Given at 0530, pending effect at this time. Will continue to monitor.
[2019-10-03 06:23] VITALS: BP 117/69
[2019-10-03] MEDS: LORazepam 1 MG TABLET PO SCH ×4 (08:41→20:23)
[2019-10-03] MEDS: PANTOPRAZOLE 40 MG TABLET. PO SCH (08:41)
[2019-10-03] MEDS: ONDANSETRON ODT 4 MG TAB.RAPDIS PO SCH ×3 (08:41→17:06)
[2019-10-03] MEDS: AMITIZA 8 MCG PO SCH (08:41)
[2019-10-03] MEDS: DULoxetine HCL 30 MG CAPSULE.DR PO SCH (08:42)
[2019-10-03] MEDS: POTASSIUM CHLORIDE 20 MEQ TABLET.ER. PO SCH ×2 (08:42→20:22)
[2019-10-03] MEDS: GABAPENTIN 100 MG CAPSULE. PO SCH (08:42)
[2019-10-03] MEDS: MULTIVITAMIN I-VITE TABLET. PO SCH (08:42)
[2019-10-03] MEDS: FUROSEMIDE 40 MG TABLET PO SCH (08:42)
[2019-10-03] MEDS: MELOXICAM 7.5 MG TABLET PO SCH (08:42)
[2019-10-03] MEDS: NYSTATIN TOPICAL POWDER 15GM BOTTLE. TP SCH ×2 (08:43→20:22)
[2019-10-03] MEDS: MONTELUKAST 10 MG TABLET. PO SCH (08:43)
[2019-10-03] MEDS: risperiDONE 1 MG TABLET. PO SCH ×2 (08:43→17:07)
[2019-10-03] MEDS: ASCORBIC ACID 500 MG TABLET PO SCH (08:43)
[2019-10-03] MEDS ORDERED: LUBIPROSTONE 8 MCG CAPSULE PO ONE (09:00)
--- NOTE | 2019-10-03 10:54 | NUR ---
She is compliant with her medication and assessment. No agitation, no aggression, no hallucinations, no delusions noted. Pt is calm, cooperative, compliant.
[2019-10-03 13:29] LABS: BASO % 1 % (0-3); EOS # 0.3 x10^3/uL (0.0-0.7); EOS % 3 % (0-3); HEMATOCRIT 36.5 % (36.0-47.0); HEMOGLOBIN 12.3 g/dL (12.0-15.5); LYMPH # 1.5 x10^3/uL (1.0-4.8); LYMPH % 18 % (24-48); MEAN CORPUSCULAR HEMOGLOBIN 32 pg (25-35); MEAN CORPUSCULAR HGB CONC 34 g/dL (31-37); MEAN CORPUSCULAR VOLUME 94 fL (79-100); MONO # 0.4 x10^3/uL (0.0-1.1); MONO % 5 % (0-9); NEUT # 5.9 x10^3uL (1.8-7.7); NEUT % 73 % (31-73); PLATELET COUNT 356 x10^3/uL (140-400); RED BLOOD COUNT 3.88 x10^6/uL (3.50-5.40); RED CELL DISTRIBUTION WIDTH 12.7 % (11.5-14.5); WHITE BLOOD COUNT 8.1 x10^3/uL (4.0-11.0)
[2019-10-03 13:59] LABS: ALBUMIN 3.7 g/dL (3.4-5.0); CALCIUM 9.2 mg/dL (8.5-10.1); CREATININE 0.9 mg/dL (0.6-1.0); GFR 62.1; TOTAL BILIRUBIN 0.2 mg/dL (0.2-1.0); TOTAL PROTEIN 7.3 g/dL (6.4-8.2)
[2019-10-03 16:15] VITALS: BP 116/66
[2019-10-03] MEDS: traZODone 100 MG TABLET. PO SCH (20:22)
[2019-10-03] MEDS: cloZAPine 25 MG TABLET PO SCH (20:22)
[2019-10-03] MEDS: AMITRIPTYLINE HCL 50 MG TABLET PO SCH (20:23)
[2019-10-03] MEDS: ATORVASTATIN CALCIUM 10 MG TABLET. PO SCH (20:23)
--- NOTE | 2019-10-03 20:36 | PN ---
DATE: 10/02/2019 PSYCHIATRIC PROGRESS NOTE This late entry 10/02/2019 covers the elements not covered in my initial note. SUBJECTIVE: I met with the patient in the evening of 10/02/2019. Per ELISABET Acuña, the patient slept 5-3/4 hours previous night. She has been appropriate during the day, has had low-grade temperature. UA has reflex to culture. We will defer to Dr. Hunt. She has been less anxious, needy. [place] is 1.2. We will go ahead and hold the lithium on 10/03/2019 and then restart at 300 mg at bedtime and check a lithium level and then adjust to reach therapeutic level. REVIEW OF SYSTEMS: Ambulation impaired, in wheelchair. No CV, , pulmonary, eye system symptoms on review. MENTAL STATUS EXAM: Reasonably oriented. Speech moderate latency, low in rate and rhythm, often responses monosyllabic. Eye contact poor. Psychomotor activity reduced. Abstraction fair, computation impaired, language function intact. Mood and affect withdrawn at times. She is still paranoid, hyper-samaritan. LABORATORY DATA: Reviewed. IMPRESSION: Schizoaffective disorder, bipolar type, mixed with psychotic features, rule out urinary tract infection. Rest unchanged. PLAN: In addition to above lithium instructions, continue psychotropics unchanged from initial note. MAN Allyssa ROMERO MD DR: KAMILLE/taya JOB#: [id number] / [id number]
--- NOTE | 2019-10-03 21:46 | PDOC ---
Exam Note: Liam Note: Please also refer to the separate dictated note~for this date of service dictated separately.~Patient seen individually. Discussed the patient with Nursing staff reviewed the chart.~Reviewed interim history and current functioning. Reviewed vital signs,~Labs/ Radiology~and current medications noted below. Continue current treatment with the changes noted in the dictated addendum note Assessment: Vital Signs/I&O: Vital Signs Date Time Temp Pulse Resp B/P (MAP) Pulse Ox O2 Delivery O2 Flow Rate FiO2 10/03/19 20:23 96 10/03/19 18:42 20 10/03/19 16:15 98.0 98 116/66 (83) 10/02/19 06:12 Room Air I & O 10/02/19 10/02/19 10/03/19 15:00 23:00 07:00 Intake Total 480 ml 360 ml 120 ml Balance 480 ml 360 ml 120 ml Labs: Laboratory Tests Test 10/03/19 13:14 White Blood Count 8.1 x10^3/uL (4.0-11.0) Red Blood Count 3.88 x10^6/uL (3.50-5.40) Hemoglobin 12.3 g/dL (12.0-15.5) Hematocrit 36.5 % (36.0-47.0) Mean Corpuscular Volume 94 fL (79-100) Mean Corpuscular Hemoglobin 32 pg (25-35) Mean Corpuscular Hemoglobin Concent 34 g/dL (31-37) Red Cell Distribution Width 12.7 % (11.5-14.5) Platelet Count 356 x10^3/uL (140-400) Neutrophils (%) (Auto) 73 % (31-73) Lymphocytes (%) (Auto) 18 % (24-48) L Monocytes (%) (Auto) 5 % (0-9) Eosinophils (%) (Auto) 3 % (0-3) Basophils (%) (Auto) 1 % (0-3) Neutrophils # (Auto) 5.9 x10^3uL (1.8-7.7) Lymphocytes # (Auto) 1.5 x10^3/uL (1.0-4.8) Monocytes # (Auto) 0.4 x10^3/uL (0.0-1.1) Eosinophils # (Auto) 0.3 x10^3/uL (0.0-0.7) Basophils # (Auto) 0.0 x10^3/uL (0.0-0.2) Sodium Level 140 mmol/L (136-145) Potassium Level 4.0 mmol/L (3.5-5.1) Chloride Level 102 mmol/L (98-107) Carbon Dioxide Level 27 mmol/L (21-32) Anion Gap 11 (6-14) Blood Urea Nitrogen 11 mg/dL (7-20) Creatinine 0.9 mg/dL (0.6-1.0) Estimated GFR (Cockcroft-Gault) 62.1 BUN/Creatinine Ratio 12 (6-20) Glucose Level 109 mg/dL (70-99) H Calcium Level 9.2 mg/dL (8.5-10.1) Total Bilirubin 0.2 mg/dL (0.2-1.0) Aspartate Amino Transferase (AST) 13 U/L (15-37) L Alanine Aminotransferase (ALT) 19 U/L (14-59) Alkaline Phosphatase 89 U/L (46-116) Total Protein 7.3 g/dL (6.4-8.2) Albumin 3.7 g/dL (3.4-5.0) Albumin/Globulin Ratio 1.0 (1.0-1.7) Current Medications: I have reviewed the current psychotropics carefully including drug interactions. Risk benefit ratio favors no change other than as noted in my dictated progress note. Diagnosis: Problems: (1) Dementia with behavioral disturbance (2) Schizophrenia, schizo-affective type (3) Medical clearance for psychiatric admission (4) Anxiety disorder (5) Impulse control disorder (6) Schizophrenia, paranoid, chronic with acute exacerbation ANNMARIE ROMERO MD Oct 03, 2019 21:46
--- NOTE | 2019-10-03 23:44 | NUR ---
Nursing Note Pt pleasant calm and cooperative, denies complaints. Compliant with meds and assessment.
[2019-10-04 06:25] VITALS: BP 138/75
[2019-10-04] MEDS: LEVOTHYROXINE 50 MCG TABLET PO SCH (06:42)
[2019-10-04] MEDS: PANTOPRAZOLE 40 MG TABLET. PO SCH (07:19)
[2019-10-04] MEDS: ONDANSETRON ODT 4 MG TAB.RAPDIS PO SCH ×3 (07:19→18:01)
[2019-10-04] MEDS: DULoxetine HCL 30 MG CAPSULE.DR PO SCH (08:26)
[2019-10-04] MEDS: LORazepam 1 MG TABLET PO SCH ×4 (08:26→20:47)
[2019-10-04] MEDS: risperiDONE 1 MG TABLET. PO SCH ×2 (08:27→18:02)
[2019-10-04] MEDS: MELOXICAM 7.5 MG TABLET PO SCH (08:28)
[2019-10-04] MEDS: FUROSEMIDE 40 MG TABLET PO SCH (08:29)
[2019-10-04] MEDS: GABAPENTIN 100 MG CAPSULE. PO SCH (08:29)
[2019-10-04] MEDS: MONTELUKAST 10 MG TABLET. PO SCH (08:29)
[2019-10-04] MEDS: CHOLECALCIFEROL (VITAMIN D3) 50,000 UNIT CAPSULE PO SCH (08:31)
[2019-10-04] MEDS: NYSTATIN TOPICAL POWDER 15GM BOTTLE. TP SCH ×2 (08:31→20:48)
[2019-10-04] MEDS: ASCORBIC ACID 500 MG TABLET PO SCH (08:31)
[2019-10-04] MEDS: POTASSIUM CHLORIDE 20 MEQ TABLET.ER. PO SCH ×2 (08:32→20:48)
[2019-10-04] MEDS: MULTIVITAMIN I-VITE TABLET. PO SCH (08:32)
[2019-10-04] MEDS: AMITIZA 8 MCG PO SCH (08:35)
[2019-10-04] MEDS ORDERED: LUBIPROSTONE 8 MCG CAPSULE PO ONE (09:00)
--- NOTE | 2019-10-04 09:00 | NUR ---
Nursing Note Pt is withdrawn to self, spends time in a w/c in the hallway. Pt is calm and compliant with meds and assessments. SW reported to this Nurse that the pt wants to leave AMA(see SW notes). MD notified and aware. No aggression. No agitation. Denies SI.
--- NOTE | 2019-10-04 11:30 | NUR ---
After speaking with ptTao and Salazar, Nurse at [facility], CECILY spoke one on one with Salazar. Salazar did share his concern regarding pt. ex 's mental and physical stability, as pt. and her ex- have a very comorbid relationship.
--- NOTE | 2019-10-04 11:32 | NUR ---
CECILY spoke to pt., at pt. request, as pt. wishes to discharge. After speaking to the doctor, pt. would need to go AMA as her lithium levels are not stable and pt. has a UTI. After speaking to Salazar, [facility], he reports they are unable to accept pt. until she is stable. CECILY spoke with pt. and Salazar on speaker phone to see if Salazar was able to convince pt. to stay. Pt. was not convinced. CECILY spoke to pt. to discuss options. Pt. is willing to wait to be assessed by [facility] to determine if pt. needs to go involuntary to another location. Pt. continuously states she will not take her medication. Pt. also gave SW permission to contact her son, Jeison. Pt. son did not answer on the first number and it appears the second number is no longer in order.
[2019-10-04 16:06] VITALS: BP 109/73
--- NOTE | 2019-10-04 16:15 | NUR ---
CECILY was approached by pt. inquiring on where she was going to go, as she wishes to discharge. CECILY reminded pt. she is waiting on an assessment from [facility]. Pt. later shared she had spoken to her ex- Niels and reports Niels will pick her up. CECILY asked pt. if she would be living with Niels after discharge, as her facility will not take pt. back until she is stable, to which pt. replied, "I guess." At pt. request, CECILY left a voice msg. for Niels to determine if in fact he plans to transport pt., as CECILY hasn't ever spoken to Niels nor does CECILY know where he lives. CECILY also plans to shared with Niels pt. will be leaving [place], as she is not stable to discharge, with not medications, and nowhere to live. CECILY then called [facility] and spoke to ABY Shen, to keep them updated on the situation. Addendum: 10/05/19 at 1448 by JOSE TONY CECILY did receive a return call from Niels. CECILY shared pt. was doing well today. Niels stated he would do anything "in his power" pt. needed, as he very much cares for pt. wellbeing.
--- NOTE | 2019-10-04 19:57 | PN ---
DATE: 10/03/2019 PSYCHIATRIC PROGRESS NOTE This late entry October 02, covers elements not covered in my initial note. SUBJECTIVE: I met with the patient evening of October 02. Per Jayne RN, the patient slept 7 and a quarter hours previous night. She did well previous night and then during the day little anxious, restless at times might have a UTI. Urine has reflex to culture. We will await this. REVIEW OF SYSTEMS: Ambulation impaired, in wheelchair. No CV, , pulmonary, eye system symptoms on review. She is still religiously preoccupied, but less so than before. MENTAL STATUS EXAM: Oriented to herself and situation. Speech has some latency, often responses monosyllabic. Abstraction fair, computation impaired, language function intact, attention span short. Mood and affect somewhat withdrawn. Other times labile. LABORATORY DATA: Reviewed. IMPRESSION: Unchanged from initial note including possible urinary tract infection. Rest unchanged. She had low-grade temperature as well. Defer to Dr. Hunt. PLAN: Continue current psychotropics. Treat UTI if positive. Rest unchanged for now. MAN Allyssa ROMERO MD DR: KAMILLE/taya JOB#: [id number] / [id number]
[2019-10-04] MEDS: MAG HYDROX/AL HYDROX/SIMETH 30 ML ORAL.SUSP PO PRN (20:44)
[2019-10-04] MEDS: ATORVASTATIN CALCIUM 10 MG TABLET. PO SCH (20:47)
[2019-10-04] MEDS: LITHIUM CARBONATE 300 MG TABLET PO SCH (20:47)
[2019-10-04] MEDS: AMITRIPTYLINE HCL 50 MG TABLET PO SCH (20:47)
[2019-10-04] MEDS: traZODone 100 MG TABLET. PO SCH (20:48)
[2019-10-04] MEDS: cloZAPine 25 MG TABLET PO SCH (20:48)
--- NOTE | 2019-10-04 21:41 | PDOC ---
Exam Note: Laim Note: Please also refer to the separate dictated note~for this date of service dictated separately.~Patient seen individually. Discussed the patient with Nursing staff reviewed the chart.~Reviewed interim history and current functioning. Reviewed vital signs,~Labs/ Radiology~and current medications noted below. Continue current treatment with the changes noted in the dictated addendum note Assessment: Vital Signs/I&O: Vital Signs Date Time Temp Pulse Resp B/P (MAP) Pulse Ox O2 Delivery O2 Flow Rate FiO2 10/04/19 16:06 98.3 92 16 109/73 (85) 99 10/02/19 06:12 Room Air I & O 10/03/19 10/03/19 10/04/19 15:00 23:00 07:00 Intake Total 600 ml 780 ml Balance 600 ml 780 ml Current Medications: Meds: Current Medications Medications (Trade) Dose Ordered Sig/Arden Route PRN Reason Start Time Stop Time Status Last Admin Dose Admin [place] Carbonate 300 mg QHS PO 10/04/19 21:00 10/04/19 20:47 I have reviewed the current psychotropics carefully including drug interactions. Risk benefit ratio favors no change other than as noted in my dictated progress note. Diagnosis: Problems: (1) Dementia with behavioral disturbance (2) Schizophrenia, schizo-affective type (3) Anxiety disorder (4) Impulse control disorder (5) Schizophrenia, paranoid, chronic with acute exacerbation ANNMARIE ROMERO MD Oct 04, 2019 21:41
--- NOTE | 2019-10-04 22:56 | NUR ---
Nursing Note Pt refused several meds this pM, trazodone, clozaril, and potassium. Irritable this pm, demanding, loud at times wanting zofran and chocolate pudding at the same time. Mylanta given no current doses of zofran available. Otherwise, fairly withdrawn.
[2019-10-05] MEDS: LEVOTHYROXINE 50 MCG TABLET PO SCH (05:38)
[2019-10-05] MEDS: HYDROcodone/APAP 5/325MG 1 TAB TABLET PO PRN (05:38)
[2019-10-05 06:24] VITALS: BP 141/80
--- NOTE | 2019-10-05 08:04 | NUR ---
This is a late entry note from 10/04/2019. During afternoon social work group, pt. asked if she could go for a walk with her walker. SW asked pt. if she had a walker here to which pt. responded yes "Zane" brought it for her. Later in the afternoon, pt. had stated she would not take her medications unless "Zane" came and told her to take them.
[2019-10-05] MEDS: PANTOPRAZOLE 40 MG TABLET. PO SCH (08:48)
[2019-10-05] MEDS: MELOXICAM 7.5 MG TABLET PO SCH (08:48)
[2019-10-05] MEDS: GABAPENTIN 100 MG CAPSULE. PO SCH (08:49)
[2019-10-05] MEDS: ASCORBIC ACID 500 MG TABLET PO SCH (08:49)
[2019-10-05] MEDS: MULTIVITAMIN I-VITE TABLET. PO SCH (08:49)
[2019-10-05] MEDS: MONTELUKAST 10 MG TABLET. PO SCH (08:49)
[2019-10-05] MEDS: risperiDONE 1 MG TABLET. PO SCH (08:49)
[2019-10-05] MEDS: FUROSEMIDE 40 MG TABLET PO SCH (08:49)
[2019-10-05] MEDS: DULoxetine HCL 30 MG CAPSULE.DR PO SCH (08:49)
[2019-10-05] MEDS: LORazepam 1 MG TABLET PO SCH ×4 (08:49→20:11)
[2019-10-05] MEDS: ONDANSETRON ODT 4 MG TAB.RAPDIS PO SCH ×3 (08:50→17:22)
[2019-10-05] MEDS: AMITIZA 8 MCG PO SCH (08:51)
[2019-10-05] MEDS: POTASSIUM CHLORIDE 20 MEQ TABLET.ER. PO SCH ×2 (08:51→20:12)
[2019-10-05] MEDS: NYSTATIN TOPICAL POWDER 15GM BOTTLE. TP SCH ×2 (08:51→20:19)
[2019-10-05] MEDS ORDERED: LUBIPROSTONE 8 MCG CAPSULE PO ONE (09:00)
--- NOTE | 2019-10-05 11:37 | NUR ---
CECILY spoke to pt. this morning. Pt. shared she took her medication and is willing to stay until the doctor is ready to release her. Pt. stated "I thought about it", and went on to explain she just needs to "deal" with what is going on. Pt. has been in good spirts and this SW took pt. for a short visit to the chapel. Pt. did become tearful at one point stating she was upset because of "Zane on the cross." CECILY explained to pt. how much the staff at [facility] care about her and that as soon as her medications are correct, she will transfer back.
--- NOTE | 2019-10-05 11:53 | NUR ---
SW spoke to ABY hSen at [facility], to let her know pt. is willing to stay until the doctor is ready to discharge her.
--- NOTE | 2019-10-05 13:22 | PN ---
DATE: 10/04/2019 PSYCHIATRIC PROGRESS NOTE This late entry 10/04/2019 covers elements not covered in my initial note. SUBJECTIVE: I met with the patient evening of 10/04/2019. Per ELISABET Martinez, the patient slept 7-1/2 hours previous night. She remains somewhat psychotic, sitting by the window in a wheelchair, staring out at times, somewhat withdrawn, teary eyes, initially wanting to leave hospital against medical advice. Nneka, social service staff had called me. The patient does have a UTI and her lithium level had crept up to 1.2. We stopped the lithium for a daily, restarting at the lower dose, level to be stabilized and I would not recommend discharge at this time. As I addressed this with the patient in the evening, she was accepting of this and agreeable. REVIEW OF SYSTEMS: Ambulation impaired, in wheelchair, complains of some tiredness. No CV, , pulmonary, eye system symptoms on review. MENTAL STATUS EXAM: Oriented to herself and situation. Speech: Has some latency, coherent, often responses monosyllabic. Abstraction fair. Computation impaired. Language function intact. Attention span short. Mood and affect withdrawn. LABORATORY DATA: Reviewed. IMPRESSION: Schizoaffective disorder, bipolar type, mixed with psychotic features; anxiety disorder, unspecified; impulse control disorder, unspecified. PLAN: Continue current psychotropics from initial note. [place] was held, being restarted at lower dosage. We will repeat labs. Continue Risperdal, Cymbalta, Haldol Decanoate, Ativan, trazodone, and the Clozaril was initiated up to now 50 mg at bedtime. We will plan on reducing the Risperdal as the Clozaril is further increased. MAN Allyssa ROMERO MD DR: KAMILLE/taya JOB#: [id number] / [id number]
--- NOTE | 2019-10-05 13:51 | NUR ---
Pt has been calm and compliant with meds and assessment, c/o stomach upset, scheduled zofran administered.
[2019-10-05 15:39] VITALS: BP 119/77
[2019-10-05] MEDS: DOXYCYCLINE HYCLATE 100 MG TABLET PO SCH (20:10)
[2019-10-05] MEDS: ATORVASTATIN CALCIUM 10 MG TABLET. PO SCH (20:10)
[2019-10-05] MEDS: LITHIUM CARBONATE 300 MG TABLET PO SCH (20:11)
[2019-10-05] MEDS: AMITRIPTYLINE HCL 50 MG TABLET PO SCH (20:11)
[2019-10-05] MEDS: cloZAPine 25 MG TABLET PO SCH (20:11)
[2019-10-05] MEDS: traZODone 100 MG TABLET. PO SCH (20:12)
--- NOTE | 2019-10-05 21:53 | PDOC ---
Exam Note: Liam Note: Please also refer to the separate dictated note~for this date of service dictated separately.~Patient seen individually. Discussed the patient with Nursing staff reviewed the chart.~Reviewed interim history and current functioning. Reviewed vital signs,~Labs/ Radiology~and current medications noted below. Continue current treatment with the changes noted in the dictated addendum note Assessment: Vital Signs/I&O: Vital Signs Date Time Temp Pulse Resp B/P (MAP) Pulse Ox O2 Delivery O2 Flow Rate FiO2 10/05/19 15:39 98.1 91 18 119/77 (91) 96 10/02/19 06:12 Room Air I & O 10/04/19 10/04/19 10/05/19 15:00 23:00 07:00 Intake Total 840 ml 480 ml Balance 840 ml 480 ml Current Medications: Meds: Current Medications Medications (Trade) Dose Ordered Sig/Arden Route PRN Reason Start Time Stop Time Status Last Admin Dose Admin Clozapine (Clozaril) 75 mg HS PO 10/05/19 21:00 10/05/19 20:11 Doxycycline Hyclate (Vibra-Tab) 100 mg BID PO 10/05/19 21:00 10/11/19 22:00 10/05/19 20:10 I have reviewed the current psychotropics carefully including drug interactions. Risk benefit ratio favors no change other than as noted in my dictated progress note. Diagnosis: Problems: (1) Dementia with behavioral disturbance (2) Schizophrenia, schizo-affective type (3) Anxiety disorder (4) Impulse control disorder (5) Schizophrenia, paranoid, chronic with acute exacerbation ANNMARIE ROMERO MD Oct 05, 2019 21:53
--- NOTE | 2019-10-06 00:08 | NUR ---
Nursing Note Pt refuses to take potassium but is compliant with other meds. States she hates it here, and wants to leave with her . Told her she is doing better and should leave soon. Pt seemed ok with that at this time.
[2019-10-06] MEDS: LEVOTHYROXINE 50 MCG TABLET PO SCH (04:54)
[2019-10-06] MEDS: HYDROcodone/APAP 5/325MG 1 TAB TABLET PO PRN ×3 (04:54→23:26)
[2019-10-06 07:00] VITALS: BP 100/66
[2019-10-06 07:25] LABS: BASO % 0 % (0-3); EOS # 0.4 x10^3/uL (0.0-0.7); EOS % 5 % (0-3); HEMATOCRIT 35.2 % (36.0-47.0); HEMOGLOBIN 11.9 g/dL (12.0-15.5); LYMPH # 1.4 x10^3/uL (1.0-4.8); LYMPH % 17 % (24-48); MEAN CORPUSCULAR HEMOGLOBIN 32 pg (25-35); MEAN CORPUSCULAR HGB CONC 34 g/dL (31-37); MEAN CORPUSCULAR VOLUME 94 fL (79-100); MONO # 0.6 x10^3/uL (0.0-1.1); MONO % 8 % (0-9); NEUT # 5.9 x10^3uL (1.8-7.7); NEUT % 70 % (31-73); PLATELET COUNT 348 x10^3/uL (140-400); RED BLOOD COUNT 3.74 x10^6/uL (3.50-5.40); RED CELL DISTRIBUTION WIDTH 12.8 % (11.5-14.5); WHITE BLOOD COUNT 8.4 x10^3/uL (4.0-11.0)
[2019-10-06] MEDS: NYSTATIN TOPICAL POWDER 15GM BOTTLE. TP SCH ×2 (08:23→20:05)
[2019-10-06] MEDS: AMITIZA 8 MCG PO SCH (08:23)
[2019-10-06] MEDS: POTASSIUM CHLORIDE 20 MEQ TABLET.ER. PO SCH ×2 (08:24→20:09)
[2019-10-06] MEDS: PANTOPRAZOLE 40 MG TABLET. PO SCH (08:24)
[2019-10-06] MEDS: MELOXICAM 7.5 MG TABLET PO SCH (08:24)
[2019-10-06] MEDS: GABAPENTIN 100 MG CAPSULE. PO SCH (08:24)
[2019-10-06] MEDS: MULTIVITAMIN I-VITE TABLET. PO SCH (08:24)
[2019-10-06] MEDS: LORazepam 1 MG TABLET PO SCH ×4 (08:24→20:06)
[2019-10-06] MEDS: DULoxetine HCL 30 MG CAPSULE.DR PO SCH (08:24)
[2019-10-06] MEDS: DOXYCYCLINE HYCLATE 100 MG TABLET PO SCH ×2 (08:24→20:08)
[2019-10-06] MEDS: FUROSEMIDE 40 MG TABLET PO SCH (08:24)
[2019-10-06] MEDS: MONTELUKAST 10 MG TABLET. PO SCH (08:25)
[2019-10-06] MEDS: ONDANSETRON ODT 4 MG TAB.RAPDIS PO SCH ×3 (08:25→16:28)
[2019-10-06] MEDS: ASCORBIC ACID 500 MG TABLET PO SCH (08:25)
[2019-10-06] MEDS ORDERED: LUBIPROSTONE 8 MCG CAPSULE PO ONE (09:00)
--- NOTE | 2019-10-06 09:25 | NUR ---
WEEKLY ACTIVITY THERAPY NOTE Date of Admission: 09/11/2019 Date of AT Assessment: 09/14/2019 Goal aimed: to increase engagement and socialization Initial goal: Pt. will participate in at least three Activity Therapy groups or individual sessions before discharge. Goal changed 09/29/2019: Pt. will participate in at least five Activity Therapy groups per week. Weekly progress towards goal: 10/29 Group participation level: 2 min, 2 full Weekly highlights: enjoys music activities Behaviors observed: often in hallway/wandering, tearful/ frustrated often, wanting to leave AMA this week, continued to speak about zoroastrian/devil, etc Plan: no change to goal Beneficial adaptations: positive response to music activities
--- NOTE | 2019-10-06 09:51 | NUR ---
Nursing Note Pt calm, quiet, states "Just give me my meds. I don't want to talk" compliant with meds floated in vanilla pudding, cooperative with assessment. No c/o pain. No agitation. No aggression.
--- NOTE | 2019-10-06 11:21 | NUR ---
CECILY contacted Salazar, Nurse at [facility], to discuss pt. progress. SW did share, at this time, pt. is willing to stay until her medications are stable.
[2019-10-06 16:29] VITALS: BP 105/62
[2019-10-06] MEDS: ACETAMINOPHEN 325 MG TABLET PO PRN (16:29)
[2019-10-06] MEDS: MAG HYDROX/AL HYDROX/SIMETH 30 ML ORAL.SUSP PO PRN (18:29)
[2019-10-06] MEDS: cloZAPine 25 MG TABLET PO SCH (20:05)
[2019-10-06] MEDS: LACTOBACILLUS RHAMNOSUS GG 1 CAPSULE. PO SCH (20:06)
[2019-10-06] MEDS: diphenhydrAMINE HCL 25 MG CAPSULE PO PRN (20:07)
[2019-10-06] MEDS: traZODone 100 MG TABLET. PO SCH (20:07)
[2019-10-06] MEDS: LITHIUM CARBONATE 300 MG TABLET PO SCH (20:07)
[2019-10-06] MEDS: AMITRIPTYLINE HCL 50 MG TABLET PO SCH (20:08)
[2019-10-06] MEDS: ATORVASTATIN CALCIUM 10 MG TABLET. PO SCH (20:09)
--- NOTE | 2019-10-06 21:45 | PDOC ---
Exam Note: Liam Note: Please also refer to the separate dictated note~for this date of service dictated separately.~Patient seen individually. Discussed the patient with Nursing staff reviewed the chart.~Reviewed interim history and current functioning. Reviewed vital signs,~Labs/ Radiology~and current medications noted below. Continue current treatment with the changes noted in the dictated addendum note Assessment: Vital Signs/I&O: Vital Signs Date Time Temp Pulse Resp B/P (MAP) Pulse Ox O2 Delivery O2 Flow Rate FiO2 10/06/19 18:02 17 10/06/19 16:29 98.0 96 105/62 (76) 98 10/02/19 06:12 Room Air I & O 10/05/19 10/05/19 10/06/19 15:00 23:00 07:00 Intake Total 480 ml 380 ml Balance 480 ml 380 ml Labs: Laboratory Tests Test 10/06/19 06:46 White Blood Count 8.4 x10^3/uL (4.0-11.0) Red Blood Count 3.74 x10^6/uL (3.50-5.40) Hemoglobin 11.9 g/dL (12.0-15.5) L Hematocrit 35.2 % (36.0-47.0) L Mean Corpuscular Volume 94 fL (79-100) Mean Corpuscular Hemoglobin 32 pg (25-35) Mean Corpuscular Hemoglobin Concent 34 g/dL (31-37) Red Cell Distribution Width 12.8 % (11.5-14.5) Platelet Count 348 x10^3/uL (140-400) Neutrophils (%) (Auto) 70 % (31-73) Lymphocytes (%) (Auto) 17 % (24-48) L Monocytes (%) (Auto) 8 % (0-9) Eosinophils (%) (Auto) 5 % (0-3) H Basophils (%) (Auto) 0 % (0-3) Neutrophils # (Auto) 5.9 x10^3uL (1.8-7.7) Lymphocytes # (Auto) 1.4 x10^3/uL (1.0-4.8) Monocytes # (Auto) 0.6 x10^3/uL (0.0-1.1) Eosinophils # (Auto) 0.4 x10^3/uL (0.0-0.7) Basophils # (Auto) 0.0 x10^3/uL (0.0-0.2) [place] Level 0.6 mmol/L (0.6-1.2) [place] Last Dose Date 10/05/19 [place] Last Dose Time 2100 Current Medications: Meds: Current Medications Medications (Trade) Dose Ordered Sig/Arden Route PRN Reason Start Time Stop Time Status Last Admin Dose Admin Lactobacillus Rhamnosus (Culturelle) 1 cap BID PO 10/06/19 21:00 10/06/19 20:06 Diphenhydramine HCl (Benadryl) 25 mg PRN Q6HRS PRN PO ITCHING 10/06/19 18:30 10/06/19 20:07 I have reviewed the current psychotropics carefully including drug interactions. Risk benefit ratio favors no change other than as noted in my dictated progress note. Diagnosis: Problems: (1) Dementia with behavioral disturbance (2) Schizophrenia, schizo-affective type (3) Anxiety disorder (4) Impulse control disorder (5) Schizophrenia, paranoid, chronic with acute exacerbation ANNMARIE ROMERO MD Oct 06, 2019 21:45
--- NOTE | 2019-10-06 22:00 | NUR ---
Patient is propelling around the unit on assumption of care. She is pleasant, interactive. Compliant with assessments and medications taken whole with pudding. She complained of back itchiness and requested to have PRN Benadryl with her HS meds. Good effect. No agitation. Denies any pain or discomfort at present time. Denies SI.
--- NOTE | 2019-10-07 02:06 | NUR ---
Patient came to the nurses station at 2330, complaining of 8/10 back and head pain. Requested PRN Lortab, which she received at that time. Good effect. Patient is currently asleep. Will continue to monitor.
[2019-10-07] MEDS: LEVOTHYROXINE 50 MCG TABLET PO SCH (04:59)
[2019-10-07 05:28] VITALS: BP 121/80
[2019-10-07] MEDS: diphenhydrAMINE HCL 25 MG CAPSULE PO PRN ×2 (06:11→20:18)
[2019-10-07] MEDS: PANTOPRAZOLE 40 MG TABLET. PO SCH (07:30)
[2019-10-07] MEDS: LORazepam 1 MG TABLET PO SCH ×4 (08:07→20:18)
[2019-10-07] MEDS: GABAPENTIN 100 MG CAPSULE. PO SCH (08:07)
[2019-10-07] MEDS: AMITIZA 8 MCG PO SCH (08:08)
[2019-10-07] MEDS: MULTIVITAMIN I-VITE TABLET. PO SCH (08:08)
[2019-10-07] MEDS: DOXYCYCLINE HYCLATE 100 MG TABLET PO SCH ×2 (08:09→20:20)
[2019-10-07] MEDS: LACTOBACILLUS RHAMNOSUS GG 1 CAPSULE. PO SCH ×2 (08:10→20:22)
[2019-10-07] MEDS: MELOXICAM 7.5 MG TABLET PO SCH (08:10)
[2019-10-07] MEDS: DULoxetine HCL 30 MG CAPSULE.DR PO SCH (08:10)
[2019-10-07] MEDS: ONDANSETRON ODT 4 MG TAB.RAPDIS PO SCH ×3 (08:10→17:25)
[2019-10-07] MEDS: MONTELUKAST 10 MG TABLET. PO SCH (08:11)
[2019-10-07] MEDS: FUROSEMIDE 40 MG TABLET PO SCH (08:11)
[2019-10-07] MEDS: ASCORBIC ACID 500 MG TABLET PO SCH (08:11)
[2019-10-07] MEDS: NYSTATIN TOPICAL POWDER 15GM BOTTLE. TP SCH ×2 (08:11→20:17)
[2019-10-07] MEDS: POTASSIUM CHLORIDE 20 MEQ TABLET.ER. PO SCH ×2 (08:12→20:22)
[2019-10-07] MEDS: HYDROcodone/APAP 5/325MG 1 TAB TABLET PO PRN ×2 (08:33→14:10)
[2019-10-07] MEDS ORDERED: LUBIPROSTONE 8 MCG CAPSULE PO ONE (09:00)
[2019-10-07] MEDS: MAG HYDROX/AL HYDROX/SIMETH 30 ML ORAL.SUSP PO PRN (14:11)
--- NOTE | 2019-10-07 14:34 | EKG ---
[address] [address] Test Date: 2019-10-07 Test Time: 12:56:46 Pat Name: ROBERTA MERLOS Department: Room: [address] [place] [address] Gender: F Esl Tutor: : 1950 Requested By: MILTON VERNON Order Number: [id number] Reading MD: Measurements Intervals Gervais Rate: P: UT: QRS: QRSD: T: QT: QTc: Interpretive Statements
[2019-10-07 15:46] VITALS: BP 115/79
--- NOTE | 2019-10-07 16:54 | NUR ---
Pt in dining room for morning meds and assessment. Pt was calm and compliant, interactive, participated in group activity. Pt complained of arm and chest pain after lunch. EKG ordered, normal sinus rhythm.
[2019-10-07] MEDS: LITHIUM CARBONATE 300 MG TABLET PO SCH (20:17)
[2019-10-07] MEDS: cloZAPine 25 MG TABLET PO SCH (20:18)
[2019-10-07] MEDS: MIRTAZAPINE 15 MG TABLET PO SCH (20:19)
[2019-10-07] MEDS: ATORVASTATIN CALCIUM 10 MG TABLET. PO SCH (20:20)
[2019-10-07] MEDS: traZODone 100 MG TABLET. PO SCH (20:21)
--- NOTE | 2019-10-07 21:31 | PDOC ---
Exam Note: Liam Note: Please also refer to the separate dictated note~for this date of service dictated separately.~Patient seen individually. Discussed the patient with Nursing staff reviewed the chart.~Reviewed interim history and current functioning. Reviewed vital signs,~Labs/ Radiology~and current medications noted below. Continue current treatment with the changes noted in the dictated addendum note Assessment: Vital Signs/I&O: Vital Signs Date Time Temp Pulse Resp B/P (MAP) Pulse Ox O2 Delivery O2 Flow Rate FiO2 10/07/19 15:46 98.0 64 16 115/79 (91) 96 10/07/19 05:28 Room Air I & O 10/06/19 10/06/19 10/07/19 15:00 23:00 07:00 Intake Total 720 ml 600 ml Balance 720 ml 600 ml Current Medications: Meds: Current Medications Medications (Trade) Dose Ordered Sig/Arden Route PRN Reason Start Time Stop Time Status Last Admin Dose Admin Mirtazapine (Remeron) 15 mg QHS PO 10/07/19 21:00 10/07/19 20:19 I have reviewed the current psychotropics carefully including drug interactions. Risk benefit ratio favors no change other than as noted in my dictated progress note. Diagnosis: Problems: (1) Dementia with behavioral disturbance (2) Schizophrenia, schizo-affective type (3) Anxiety disorder (4) Impulse control disorder (5) Schizophrenia, paranoid, chronic with acute exacerbation ANNMARIE ROMERO MD Oct 07, 2019 21:31
--- NOTE | 2019-10-07 23:27 | PN ---
DATE: 10/05/2019 PSYCHIATRIC PROGRESS NOTE This late entry 10/05/2019 covers elements not covered in my initial note. SUBJECTIVE: I met with the patient in the evening. Per ELISABET Soliz, the patient slept 8 hours previous night. She has had a better day, has not been requesting to leave against medical advice. WBC 8.1, neutrophils 73% on 10/03/2019 and we will increase the Clozaril from 50 mg at bedtime to 75 mg at bedtime and stop the Risperdal as we are transitioning to the Clozaril. REVIEW OF SYSTEMS: Ambulation impaired, in wheelchair. No CV, , pulmonary, eye system symptoms on review. MENTAL STATUS EXAM: Oriented to herself and situation. Speech has some latency, coherent. Abstraction fair, computation impaired, language function intact. She is still paranoid, but less so than before. LABORATORY DATA: Reviewed. IMPRESSION: Unchanged from initial note. PLAN: No change from initial note and what is noted above. Continue weekly checks for CBC, absolute neutrophil count on the Clozaril. MAN Allyssa ROMERO MD DR: KAMILLE/taya JOB#: [id number] / [id number]
[2019-10-08 05:30] VITALS: BP 124/74
[2019-10-08] MEDS: LEVOTHYROXINE 50 MCG TABLET PO SCH (06:00)
[2019-10-08] MEDS: PANTOPRAZOLE 40 MG TABLET. PO SCH (07:30)
[2019-10-08] MEDS: ONDANSETRON ODT 4 MG TAB.RAPDIS PO SCH ×3 (07:30→17:07)
--- NOTE | 2019-10-08 08:52 | PN ---
DATE: 10/06/2019 PSYCHIATRIC PROGRESS NOTE This late entry 10/06/2019 covers elements not covered in my initial note. SUBJECTIVE: I met with the patient evening of 10/06/2019 and staffed at a treatment team meeting with the entire team in the morning. We had a lengthy discussion and the patient attended the treatment team meeting. Appetite 75%, sleeping average 7 hours. At times, she gets obsessed about wanting to be discharged against medical advice. She has no placement available, and once I discussed this with her, she is agreeable to continuing treatment, stabilization of her psychotropics and then vacillates again back and forth on this. This happened in the treatment team meeting again and we addressed this. She has been talking about music and the devil, still psychotic, but improving. REVIEW OF SYSTEMS: Ambulation impaired, in wheelchair. Vague somatic symptoms. No CV, , PULMONARY, EYE system symptoms on review. MENTAL STATUS EXAM: Oriented to herself and situation. Speech; moderate latency, often responses monosyllabic. Abstraction fair, computation impaired, language function intact, attention span short. Mood and affect remain somewhat labile. LABORATORY DATA: Reviewed. IMPRESSION: Schizoaffective disorder, bipolar type, mixed with psychotic features; anxiety disorder, unspecified; mild cognitive impairment. PLAN: Continue current psychotropics including lithium 300 mg at bedtime, the last level was 0.6, we will repeat the level on 10/06/2019, result is awaited. Continue to gradually increase the Clozaril, simplify the psychotropic regimen, perhaps reduce the Ativan in due course. Continue Haldol Decanoate, Cymbalta at current dosage, trazodone and the Zyprexa p.r.n. MAN Allyssa ROMERO MD DR: KAMILLE/taya JOB#: [id number] / [id number]
--- NOTE | 2019-10-08 08:57 | PN ---
DATE: 10/07/2019 PSYCHIATRIC PROGRESS NOTE This late entry 10/07/2019 covers elements not covered in my initial note. SUBJECTIVE: I met with the patient evening of 10/07/2019. The patient slept just 1-1/2 hours previous night. She remains anxious, restless, constantly wanting Benadryl because she complains of itchiness on her back. REVIEW OF SYSTEMS: Impaired ambulation, in wheelchair, itching as noted. No CV, , PULMONARY, EYE system symptoms on review. MENTAL STATUS EXAM: Oriented to herself and situation. Speech has some latency, coherent, often responses monosyllabic, met with her at length in her room. Abstraction fair, computation impaired, language function intact. Insight is poor at times, still wanting to leave against medical advice, has no place to go to and then able to accept continued hospitalization as I again addressed this with her. She gets anxious, paranoid. PLAN: We will use Zyprexa p.r.n. We will repeat the lithium level. Change the Elavil 50 mg at bedtime to Remeron 15 mg at bedtime to help with insomnia, mood lability. Repeat the lithium level, adjust further as clinically indicated. Continue to gradually increase Clozaril. ANNMARIE ROMERO MD DR: KAMILLE/taya JOB#: [id number] / [id number]
[2019-10-08] MEDS: AMITIZA 8 MCG PO SCH (09:00)
[2019-10-08] MEDS: DULoxetine HCL 30 MG CAPSULE.DR PO SCH (09:00)
[2019-10-08] MEDS: MULTIVITAMIN I-VITE TABLET. PO SCH (09:00)
[2019-10-08] MEDS: ASCORBIC ACID 500 MG TABLET PO SCH (09:00)
[2019-10-08] MEDS: GABAPENTIN 100 MG CAPSULE. PO SCH (09:00)
[2019-10-08] MEDS: MONTELUKAST 10 MG TABLET. PO SCH (09:00)
[2019-10-08] MEDS: FUROSEMIDE 40 MG TABLET PO SCH (09:00)
[2019-10-08] MEDS: LACTOBACILLUS RHAMNOSUS GG 1 CAPSULE. PO SCH ×2 (09:00→19:36)
[2019-10-08] MEDS: POTASSIUM CHLORIDE 20 MEQ TABLET.ER. PO SCH ×2 (09:00→19:36)
[2019-10-08] MEDS: NYSTATIN TOPICAL POWDER 15GM BOTTLE. TP SCH ×2 (09:00→19:40)
[2019-10-08] MEDS: DOXYCYCLINE HYCLATE 100 MG TABLET PO SCH ×2 (09:00→19:37)
[2019-10-08] MEDS: MELOXICAM 7.5 MG TABLET PO SCH (09:00)
[2019-10-08] MEDS: LORazepam 1 MG TABLET PO SCH ×4 (09:00→19:37)
--- NOTE | 2019-10-08 13:39 | NUR ---
Downtime medication administration form utilized for am medication administration.
--- NOTE | 2019-10-08 13:44 | NUR ---
Pt is calm, cooperative, compliant. No agitation, no aggression, no hallucinations, no delusions. She is compliant with her medication and assessment.
[2019-10-08] MEDS: HYDROcodone/APAP 5/325MG 1 TAB TABLET PO PRN ×2 (13:52→21:22)
[2019-10-08 16:30] VITALS: BP 124/79
[2019-10-08] MEDS: diphenhydrAMINE HCL 25 MG CAPSULE PO PRN (17:08)
[2019-10-08] MEDS: MIRTAZAPINE 15 MG TABLET PO SCH (19:36)
[2019-10-08] MEDS: ATORVASTATIN CALCIUM 10 MG TABLET. PO SCH (19:36)
[2019-10-08] MEDS: LITHIUM CARBONATE 300 MG TABLET PO SCH (19:36)
[2019-10-08] MEDS: traZODone 100 MG TABLET. PO SCH (19:37)
[2019-10-08] MEDS: cloZAPine 25 MG TABLET PO SCH (19:37)
--- NOTE | 2019-10-08 21:33 | PN ---
DATE: 10/08/2019 SUBJECTIVE: The patient was seen today, met with the staff, chart reviewed and also covering for Dr. Saha. Staff reports that the patient is still depressed, recent UTI, currently on wheelchair, constantly itching, scratching her skin. OBSERVATION: VITAL SIGNS: Temperature 97.6, blood pressure is 124/24, pulse 98, respirations 20, and O2 sat 94%. GENERAL: Slept about 6 hours last night. The patient's appetite is fair. MEDICATIONS: Reviewed. Currently, she is on mirtazapine 15 mg at night, Clozaril 75 mg at night, lithium carbonate 300 mg at night, olanzapine 2.5 mg q.2 hours p.r.n., trazodone 150 mg at night, Cymbalta 30 mg daily, also on Haldol Decanoate 100 mg IM four weeks. The patient is also on lorazepam 1 mg q.i.d., gabapentin 100 mg daily. The patient is not having any side effects. LABORATORY DATA: The patient's lab reviewed. ASSESSMENT: Schizoaffective disorder, bipolar type, mixed with psychotic features; anxiety disorder, unspecified. PLAN: Continue with the current treatment plan. LENGTH OF STAY: 3-5 days. ADIN ZENG MD DR: OMAYRA/taya JOB#: [id number] / [id number]
--- NOTE | 2019-10-09 03:05 | NUR ---
Pt asking for meds at beginning of shift. Propelled self up and down halls and pt spoke with Niels on phone. Requested pain med prior to bed. Is resting quietly in bed.
[2019-10-09] MEDS: HYDROcodone/APAP 5/325MG 1 TAB TABLET PO PRN ×3 (03:27→19:39)
[2019-10-09] MEDS: LEVOTHYROXINE 50 MCG TABLET PO SCH (05:25)
[2019-10-09 05:29] VITALS: BP 122/73
[2019-10-09] MEDS: ONDANSETRON ODT 4 MG TAB.RAPDIS PO SCH ×3 (08:14→17:19)
[2019-10-09] MEDS: AMITIZA 8 MCG PO SCH (08:15)
[2019-10-09] MEDS: LORazepam 1 MG TABLET PO SCH ×4 (08:15→19:41)
[2019-10-09] MEDS: PANTOPRAZOLE 40 MG TABLET. PO SCH (08:15)
[2019-10-09] MEDS: MULTIVITAMIN I-VITE TABLET. PO SCH (08:15)
[2019-10-09] MEDS: DULoxetine HCL 30 MG CAPSULE.DR PO SCH (08:15)
[2019-10-09] MEDS: LACTOBACILLUS RHAMNOSUS GG 1 CAPSULE. PO SCH ×2 (08:15→19:39)
[2019-10-09] MEDS: FUROSEMIDE 40 MG TABLET PO SCH (08:16)
[2019-10-09] MEDS: MONTELUKAST 10 MG TABLET. PO SCH (08:16)
[2019-10-09] MEDS: MELOXICAM 7.5 MG TABLET PO SCH (08:16)
[2019-10-09] MEDS: GABAPENTIN 100 MG CAPSULE. PO SCH (08:16)
[2019-10-09] MEDS: POTASSIUM CHLORIDE 20 MEQ TABLET.ER. PO SCH ×2 (08:16→19:42)
[2019-10-09] MEDS: DOXYCYCLINE HYCLATE 100 MG TABLET PO SCH ×2 (08:16→19:40)
[2019-10-09] MEDS: ASCORBIC ACID 500 MG TABLET PO SCH (08:17)
[2019-10-09] MEDS: NYSTATIN TOPICAL POWDER 15GM BOTTLE. TP SCH ×2 (08:17→19:38)
[2019-10-09] MEDS ORDERED: HALOPERIDOL DECANOATE 100 MG IM SCH (09:00)
[2019-10-09] MEDS: diphenhydrAMINE HCL 25 MG CAPSULE PO PRN ×2 (09:24→17:50)
--- NOTE | 2019-10-09 10:39 | NUR ---
She is compliant with her medication and assessment. Pt is calm, cooperative, compliant. No agitation, no aggression, no hallucinations, no delusions.
[2019-10-09] MEDS: ACETAMINOPHEN 325 MG TABLET PO PRN (14:16)
[2019-10-09 15:38] VITALS: BP 127/80
[2019-10-09] MEDS: MAG HYDROX/AL HYDROX/SIMETH 30 ML ORAL.SUSP PO PRN (18:31)
[2019-10-09] MEDS: MIRTAZAPINE 15 MG TABLET PO SCH (19:39)
[2019-10-09] MEDS: traZODone 100 MG TABLET. PO SCH (19:40)
[2019-10-09] MEDS: cloZAPine 25 MG TABLET PO SCH (19:41)
[2019-10-09] MEDS: LITHIUM CARBONATE 300 MG TABLET PO SCH (19:42)
[2019-10-09] MEDS: ATORVASTATIN CALCIUM 10 MG TABLET. PO SCH (19:42)
--- NOTE | 2019-10-09 22:00 | NUR ---
Patient is propelling around the unit on assumption of care. She is pleasant, interactive. Compliant with assessments and medications taken whole with pudding. She complained of 8/10 bilateral leg pain and requested to have Lortab with her HS meds. Good effect. No agitation. Denies any pain or discomfort at present time. Denies SI.
--- NOTE | 2019-10-09 23:45 | PN ---
DATE: 10/09/2019 SUBJECTIVE: The patient was seen today, met with the staff, chart reviewed and also covering for Dr. Saha. Staff reports no major behavior problems. She is compliant with the treatment and also with assessments and not resistive to care. OBSERVATION: VITAL SIGNS: Temperature 97.4, blood pressure 122/73, pulse 88, respirations 20. GENERAL: Slept about 6 hours last night. The patient's medications reviewed. The patient is not presenting with any major medical issues. LABORATORY DATA: The patient's lab reviewed. MEDICATIONS: The patient is currently on mirtazapine 15 mg at night, Clozaril 75 mg at night, lithium carbonate 300 mg at night, olanzapine 2.5 mg q. 2 hours p.r.n., trazodone 150 mg at night, Cymbalta 30 mg daily, also Haldol Decanoate 100 mg IM q. 4 weeks. The patient is also on lorazepam 1 mg q.i.d. p.o. and gabapentin 100 mg daily. ASSESSMENT: 1. Schizoaffective disorder, bipolar type, mixed, with psychotic features. 2. Generalized anxiety disorder, unspecified. PLAN: To continue with the treatment. LENGTH OF STAY: 3-[address] ADIN ZENG MD DR: OMAYRA/taya JOB#: [id number] / [id number]
[2019-10-10] MEDS: HYDROcodone/APAP 5/325MG 1 TAB TABLET PO PRN ×3 (02:48→16:44)
[2019-10-10] MEDS: LEVOTHYROXINE 50 MCG TABLET PO SCH (05:28)
[2019-10-10 06:00] VITALS: BP 110/57
[2019-10-10] MEDS: PANTOPRAZOLE 40 MG TABLET. PO SCH (08:19)
[2019-10-10] MEDS: ONDANSETRON ODT 4 MG TAB.RAPDIS PO SCH ×3 (08:20→16:02)
[2019-10-10] MEDS: FUROSEMIDE 40 MG TABLET PO SCH (08:21)
[2019-10-10] MEDS: LACTOBACILLUS RHAMNOSUS GG 1 CAPSULE. PO SCH ×2 (08:21→20:01)
[2019-10-10] MEDS: POTASSIUM CHLORIDE 20 MEQ TABLET.ER. PO SCH ×2 (08:21→20:02)
[2019-10-10] MEDS: DULoxetine HCL 30 MG CAPSULE.DR PO SCH (08:21)
[2019-10-10] MEDS: MULTIVITAMIN I-VITE TABLET. PO SCH (08:21)
[2019-10-10] MEDS: AMITIZA 8 MCG PO SCH (08:21)
[2019-10-10] MEDS: NYSTATIN TOPICAL POWDER 15GM BOTTLE. TP SCH ×2 (08:22→19:58)
[2019-10-10] MEDS: GABAPENTIN 100 MG CAPSULE. PO SCH (08:22)
[2019-10-10] MEDS: DOXYCYCLINE HYCLATE 100 MG TABLET PO SCH ×2 (08:22→19:58)
[2019-10-10] MEDS: MELOXICAM 7.5 MG TABLET PO SCH (08:22)
[2019-10-10] MEDS: MONTELUKAST 10 MG TABLET. PO SCH (08:22)
[2019-10-10] MEDS: ASCORBIC ACID 500 MG TABLET PO SCH (08:22)
[2019-10-10] MEDS: LORazepam 1 MG TABLET PO SCH ×4 (08:25→19:58)
[2019-10-10] MEDS: diphenhydrAMINE HCL 25 MG CAPSULE PO PRN (09:32)
[2019-10-10 09:44] LABS: BASO # 0.1 x10^3/uL (0.0-0.2); BASO % 1 % (0-3); EOS # 0.3 x10^3/uL (0.0-0.7); EOS % 4 % (0-3); HEMATOCRIT 36.3 % (36.0-47.0); HEMOGLOBIN 12.2 g/dL (12.0-15.5); LYMPH # 1.3 x10^3/uL (1.0-4.8); LYMPH % 17 % (24-48); MEAN CORPUSCULAR HEMOGLOBIN 32 pg (25-35); MEAN CORPUSCULAR HGB CONC 34 g/dL (31-37); MEAN CORPUSCULAR VOLUME 95 fL (79-100); MONO # 0.5 x10^3/uL (0.0-1.1); MONO % 7 % (0-9); NEUT # 5.6 x10^3uL (1.8-7.7); NEUT % 72 % (31-73); PLATELET COUNT 393 x10^3/uL (140-400); RED BLOOD COUNT 3.84 x10^6/uL (3.50-5.40); RED CELL DISTRIBUTION WIDTH 12.8 % (11.5-14.5); WHITE BLOOD COUNT 7.8 x10^3/uL (4.0-11.0)
--- NOTE | 2019-10-10 09:45 | NUR ---
CEC[facility] faxed update pt. paperwork in preparation for pt. discharge.
--- NOTE | 2019-10-10 09:46 | NUR ---
[facility] Social Work Discharge Planning Form Patient Name ROBERTA MERLOS I Admit Date: 09/11/2019 DISCHARGE PLAN Discharge Destination: [facility] Care Assessment: NA Level II Assessment: NA Transportation: [facility] to transport pt. on 10/12/2019 garbage pick up man time TBD. Special Instructions/Notes: Please fax discharge paperwork and medication list. DISCHARGE TO FACILITY Facility: [facility] Address: [address] [place] [address] Contact Name: Nurse Salazar Contact Name: ABY Shen PCP: Dr. Rizvi Psychiatrist: None
[2019-10-10] MEDS: HALOPERIDOL DECANOATE IM ER 100 MG/ML VIAL. IM SCH (10:20)
--- NOTE | 2019-10-10 11:06 | NUR ---
Pt is calm, cooperative, compliant. No agitation, no aggression, no hallucinations, no delusions. She is compliant with her medication and assessment.
[2019-10-10 16:37] VITALS: BP 134/83
[2019-10-10] MEDS: LITHIUM CARBONATE 300 MG TABLET PO SCH (19:59)
[2019-10-10] MEDS: MIRTAZAPINE 15 MG TABLET PO SCH (20:01)
[2019-10-10] MEDS: ATORVASTATIN CALCIUM 10 MG TABLET. PO SCH (20:01)
[2019-10-10] MEDS: traZODone 100 MG TABLET. PO SCH (20:02)
[2019-10-10] MEDS: cloZAPine 100 MG TABLET PO SCH (20:04)
--- NOTE | 2019-10-10 21:54 | PDOC ---
Exam Note: Liam Note: Please also refer to the separate dictated note~for this date of service dictated separately.~Patient seen individually. Discussed the patient with Nursing staff reviewed the chart.~Reviewed interim history and current functioning. Reviewed vital signs,~Labs/ Radiology~and current medications noted below. Continue current treatment with the changes noted in the dictated addendum note Assessment: Vital Signs/I&O: Vital Signs Date Time Temp Pulse Resp B/P (MAP) Pulse Ox O2 Delivery O2 Flow Rate FiO2 10/10/19 17:55 20 10/10/19 16:37 97.9 91 134/83 (100) 99 10/09/19 05:29 Room Air I & O 10/09/19 10/09/19 10/10/19 15:00 23:00 07:00 Intake Total 720 ml 240 ml 240 ml Balance 720 ml 240 ml 240 ml Labs: Laboratory Tests Test 10/10/19 09:37 White Blood Count 7.8 x10^3/uL (4.0-11.0) Red Blood Count 3.84 x10^6/uL (3.50-5.40) Hemoglobin 12.2 g/dL (12.0-15.5) Hematocrit 36.3 % (36.0-47.0) Mean Corpuscular Volume 95 fL (79-100) Mean Corpuscular Hemoglobin 32 pg (25-35) Mean Corpuscular Hemoglobin Concent 34 g/dL (31-37) Red Cell Distribution Width 12.8 % (11.5-14.5) Platelet Count 393 x10^3/uL (140-400) Neutrophils (%) (Auto) 72 % (31-73) Lymphocytes (%) (Auto) 17 % (24-48) L Monocytes (%) (Auto) 7 % (0-9) Eosinophils (%) (Auto) 4 % (0-3) H Basophils (%) (Auto) 1 % (0-3) Neutrophils # (Auto) 5.6 x10^3uL (1.8-7.7) Lymphocytes # (Auto) 1.3 x10^3/uL (1.0-4.8) Monocytes # (Auto) 0.5 x10^3/uL (0.0-1.1) Eosinophils # (Auto) 0.3 x10^3/uL (0.0-0.7) Basophils # (Auto) 0.1 x10^3/uL (0.0-0.2) Current Medications: Meds: Current Medications Medications (Trade) Dose Ordered Sig/Arden Route PRN Reason Start Time Stop Time Status Last Admin Dose Admin Clozapine (Clozaril) 100 mg QHS PO 10/10/19 21:00 10/10/19 20:04 I have reviewed the current psychotropics carefully including drug interactions. Risk benefit ratio favors no change other than as noted in my dictated progress note. Diagnosis: Problems: (1) Dementia with behavioral disturbance (2) Schizophrenia, schizo-affective type (3) Anxiety disorder (4) Impulse control disorder (5) Schizophrenia, paranoid, chronic with acute exacerbation ANNMARIE ROMERO MD Oct 10, 2019 21:54
--- NOTE | 2019-10-10 22:30 | NUR ---
Patient is propelling around the unit on assumption of care. She is pleasant, interactive. Compliant with assessments and medications taken whole with pudding. No agitation. Denies any pain or discomfort at present time. Denies SI.
[2019-10-11] MEDS: HYDROcodone/APAP 5/325MG 1 TAB TABLET PO PRN ×4 (02:07→17:06)
[2019-10-11] MEDS: LEVOTHYROXINE 50 MCG TABLET PO SCH (05:41)
[2019-10-11 05:42] VITALS: BP 108/62
[2019-10-11] MEDS: FUROSEMIDE 40 MG TABLET PO SCH (08:43)
[2019-10-11] MEDS: GABAPENTIN 100 MG CAPSULE. PO SCH (08:43)
[2019-10-11] MEDS: ONDANSETRON ODT 4 MG TAB.RAPDIS PO SCH ×3 (08:44→17:03)
[2019-10-11] MEDS: LACTOBACILLUS RHAMNOSUS GG 1 CAPSULE. PO SCH ×2 (08:44→20:07)
[2019-10-11] MEDS: CHOLECALCIFEROL (VITAMIN D3) 50,000 UNIT CAPSULE PO SCH (08:45)
[2019-10-11] MEDS: LORazepam 1 MG TABLET PO SCH ×4 (08:45→20:08)
[2019-10-11] MEDS: MULTIVITAMIN I-VITE TABLET. PO SCH (08:45)
[2019-10-11] MEDS: AMITIZA 8 MCG PO SCH (08:45)
[2019-10-11] MEDS: MONTELUKAST 10 MG TABLET. PO SCH (08:45)
[2019-10-11] MEDS: DULoxetine HCL 30 MG CAPSULE.DR PO SCH (08:45)
--- NOTE | 2019-10-11 08:45 | NUR ---
Patient reports pain rated 8/10 in Right leg. Nothing unusual noted on leg and patient states this is not a new pain. Patient requests PRN Lortab. PRN Lortab given to patient for pain per order.
[2019-10-11] MEDS: DOXYCYCLINE HYCLATE 100 MG TABLET PO SCH ×2 (08:46→20:08)
[2019-10-11] MEDS: ASCORBIC ACID 500 MG TABLET PO SCH (08:46)
[2019-10-11] MEDS: POTASSIUM CHLORIDE 20 MEQ TABLET.ER. PO SCH ×2 (08:46→20:07)
[2019-10-11] MEDS: MELOXICAM 7.5 MG TABLET PO SCH (08:46)
[2019-10-11] MEDS: PANTOPRAZOLE 40 MG TABLET. PO SCH (08:46)
[2019-10-11] MEDS: NYSTATIN TOPICAL POWDER 15GM BOTTLE. TP SCH ×2 (08:47→20:07)
[2019-10-11 16:03] VITALS: BP 124/78
--- NOTE | 2019-10-11 17:06 | NUR ---
Patient is concerned about "swelling" in her right hand and pain in her right leg. Swelling is causing her wrist band to feel tight but she does not have edema in her hand. PRN Lortab given for pain rated 8/10 per patient request. will continue to monitor.
--- NOTE | 2019-10-11 19:32 | NUR ---
Patient has been pleasant and calm. She is not having delusions or hallucinations. She is compliant with medications. She had some nausea after dinner and asked for crackers to settle her stomach. She did not vomit this shift.
[2019-10-11] MEDS: MIRTAZAPINE 15 MG TABLET PO SCH (20:08)
[2019-10-11] MEDS: LITHIUM CARBONATE 300 MG TABLET PO SCH (20:08)
[2019-10-11] MEDS: ATORVASTATIN CALCIUM 10 MG TABLET. PO SCH (20:08)
[2019-10-11] MEDS: cloZAPine 100 MG TABLET PO SCH (20:08)
[2019-10-11] MEDS: traZODone 100 MG TABLET. PO SCH (20:09)
--- NOTE | 2019-10-11 21:46 | PDOC ---
Exam Note: Liam Note: Please also refer to the separate dictated note~for this date of service dictated separately.~Patient seen individually. Discussed the patient with Nursing staff reviewed the chart.~Reviewed interim history and current functioning. Reviewed vital signs,~Labs/ Radiology~and current medications noted below. Continue current treatment with the changes noted in the dictated addendum note Assessment: Vital Signs/I&O: Vital Signs Date Time Temp Pulse Resp B/P (MAP) Pulse Ox O2 Delivery O2 Flow Rate FiO2 10/11/19 16:03 98.1 89 18 124/78 (93) 99 10/11/19 08:45 Room Air I & O 10/10/19 10/10/19 10/11/19 15:00 23:00 07:00 Intake Total 960 ml 720 ml Balance 960 ml 720 ml Current Medications: I have reviewed the current psychotropics carefully including drug interactions. Risk benefit ratio favors no change other than as noted in my dictated progress note. Diagnosis: Problems: (1) Dementia with behavioral disturbance (2) Schizophrenia, schizo-affective type (3) Medical clearance for psychiatric admission (4) Anxiety disorder (5) Impulse control disorder (6) Schizophrenia, paranoid, chronic with acute exacerbation ANNMARIE ROMERO MD Oct 11, 2019 21:46
--- NOTE | 2019-10-11 23:19 | NUR ---
Pt up in w/c in hallway at shift change. Pt calm and interactive although she c/o nausea. Pt did have 1 episode of emesis just after shift change this evening but reported afterwards that her stomach felt "more settled" after vomiting. PT cooperative with assessment and compliant with medications administered whole.
[2019-10-12] MEDS ORDERED: ACET325T21 PO (01:56)
[2019-10-12] MEDS ORDERED: CHOL500021 PO (01:57)
[2019-10-12] MEDS ORDERED: DULO30CA2 PO (01:59)
[2019-10-12] MEDS ORDERED: MAGN24003 PO (02:00)
[2019-10-12] MEDS ORDERED: LITH300T3 PO (02:00)
[2019-10-12] MEDS ORDERED: METH28OI2 TP (02:01)
[2019-10-12] MEDS ORDERED: MIRT15TA3 PO (02:02)
[2019-10-12] MEDS ORDERED: OLAN5TAB5 PO (02:02)
[2019-10-12] MEDS ORDERED: DIPH25TA26 PO (02:03)
[2019-10-12] MEDS ORDERED: TRAZ150T49 PO ×2 (02:03→02:04)
[2019-10-12] MEDS ORDERED: CLOZ100T7 PO (02:03)
[2019-10-12] MEDS: HYDROcodone/APAP 5/325MG 1 TAB TABLET PO PRN ×2 (03:11→07:40)
[2019-10-12] MEDS: LEVOTHYROXINE 50 MCG TABLET PO SCH (04:58)
[2019-10-12 05:53] VITALS: BP 136/78
[2019-10-12] MEDS: diphenhydrAMINE HCL 25 MG CAPSULE PO PRN (06:15)
[2019-10-12] MEDS: PANTOPRAZOLE 40 MG TABLET. PO SCH (07:40)
[2019-10-12] MEDS: ONDANSETRON ODT 4 MG TAB.RAPDIS PO SCH (07:40)
--- NOTE | 2019-10-12 07:46 | NUR ---
Patient at nurses station at the beginning of this shift asking for pain medications. She states that her pain in her right arm and right leg is 8/10. She stated that she "hurt them in exercise group yesterday". The patient did not attend that group yesterday. PRN Lortab provided for pain per order. Will continue to monitor.
[2019-10-12] MEDS: FUROSEMIDE 40 MG TABLET PO SCH (08:37)
[2019-10-12] MEDS: AMITIZA 8 MCG PO SCH (08:37)
[2019-10-12] MEDS: NYSTATIN TOPICAL POWDER 15GM BOTTLE. TP SCH (08:37)
[2019-10-12] MEDS: ASCORBIC ACID 500 MG TABLET PO SCH (08:37)
[2019-10-12] MEDS: POTASSIUM CHLORIDE 20 MEQ TABLET.ER. PO SCH (08:38)
[2019-10-12] MEDS: DULoxetine HCL 30 MG CAPSULE.DR PO SCH (08:38)
[2019-10-12] MEDS: MONTELUKAST 10 MG TABLET. PO SCH (08:38)
[2019-10-12] MEDS: MULTIVITAMIN I-VITE TABLET. PO SCH (08:38)
[2019-10-12] MEDS: LORazepam 1 MG TABLET PO SCH (08:39)
[2019-10-12] MEDS: MELOXICAM 7.5 MG TABLET PO SCH (08:39)
[2019-10-12] MEDS: LACTOBACILLUS RHAMNOSUS GG 1 CAPSULE. PO SCH (08:39)
[2019-10-12] MEDS: GABAPENTIN 100 MG CAPSULE. PO SCH (08:44)
--- NOTE | 2019-10-12 09:46 | PN ---
DATE: 10/10/2019 PSYCHIATRIC PROGRESS NOTE This late entry 10/10/2019 covers elements not covered in my initial note. SUBJECTIVE: I met with the patient evening of 10/10/2019. Per nursing report, the patient has been "snarky." She has been irritable, labile, anxious, somewhat paranoid, but less than before. WBC 7.8, neutrophils 72% indicating absolute neutrophil count, which is adequate while she is on Clozaril 75 mg at bedtime and we will increase to 100 mg at bedtime. REVIEW OF SYSTEMS: Ambulation impaired, in wheelchair. No CV, , pulmonary, eye system symptoms on review. She has vague somatic symptoms. MENTAL STATUS EXAM: Oriented to herself and situation. Speech is coherent, at times a little pressured. Abstraction fair, computation impaired, language function intact, attention span short. Mood and affect remain somewhat labile at times. LABORATORY DATA: Reviewed. IMPRESSION: Schizoaffective disorder, bipolar type, mixed with psychotic features. Rest unchanged. PLAN: Increase the Clozaril to 100 mg at bedtime. Continue weekly CBC, absolute neutrophil count checks. Check a lithium level in the morning of 10/11/2019. Rest unchanged for now. ANNMARIE ROMERO MD DR: KAMILLE/taya JOB#: [id number] / [id number]
--- NOTE | 2019-10-12 09:52 | NUR ---
Patient cooperative and calm. She states she is excited to be discharging today. Patient is compliant with medications taken whole. She likes them accompanied by chocolate pudding. She denies delusions and also denies hearing Zane talk to her.
--- NOTE | 2019-10-12 10:45 | NUR ---
Transition Record was faxed to follow-up provider with the following elements: Reason for admission, procedures, tests, principal diagnosis, pending studies, patient instructions, 16/02 contact information for unit, phone number to obtain pending test results, plan for follow-up care, physician follow-up, advanced directive information, and medication list with dose, duration and instructions. This information was included in the following documents: History and physical, lab results, study results, progress notes, social work planning form, DC instruction form, patient visit summary, and medication reconciliation form. Date & time record faxed: 10/12/2019 1000 Record faxed to: [phone] [facility] Record discussed with/ report given to: Patrica nurse at [facility].
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
--- NOTE | 2019-10-12 21:56 | PDOC ---
Exam Note: Liam Note: Please also refer to the separate dictated note~for this date of service dictated separately.~Patient seen individually. Discussed the patient with Nursing staff reviewed the chart.~Reviewed interim history and current functioning. Reviewed vital signs,~Labs/ Radiology~and current medications noted below. Continue current treatment with the changes noted in the dictated addendum note Assessment: Vital Signs/I&O: Vital Signs Date Time Temp Pulse Resp B/P (MAP) Pulse Ox O2 Delivery O2 Flow Rate FiO2 10/12/19 05:53 97.9 92 20 136/78 (97) 94 10/11/19 08:45 Room Air I & O 10/11/19 10/11/19 10/12/19 15:00 23:00 07:00 Intake Total 480 ml 360 ml Balance 480 ml 360 ml Current Medications: I have reviewed the current psychotropics carefully including drug interactions. Risk benefit ratio favors no change other than as noted in my dictated progress note. Diagnosis: Problems: (1) Dementia with behavioral disturbance (2) Schizophrenia, schizo-affective type (3) Anxiety disorder (4) Impulse control disorder (5) Schizophrenia, paranoid, chronic with acute exacerbation ANNMARIE ROMERO MD Oct 12, 2019 21:56
--- NOTE | 2019-10-12 23:39 | PN ---
DATE: 10/11/2019 PSYCHIATRIC PROGRESS NOTE This late entry 10/11/2019 covers elements not covered in my initial note. SUBJECTIVE: I met with the patient evening of 10/11/2019. Per ELISABET Mcelroy, the patient slept 7-1/4 hours previous night. She is less psychotic. Denies that she has been talking to Zane, but still remains somewhat hyper-voodoo, praying, but some of this is not inappropriate. REVIEW OF SYSTEMS: Ambulation impaired, in wheelchair. No CV, , pulmonary, eye system symptoms on review. MENTAL STATUS EXAMINATION: Oriented to herself and situation. Does complain of some nausea, nursing staff feels some of it was genuine, but then she is exaggerating it, we will defer to Dr. Hunt. Reasonably oriented. Speech has some latency, coherent. Abstraction fair, computation impaired, language function intact, attention span short. Mood and affect withdrawn, but improved, less labile, less psychotic. LABORATORY DATA: Reviewed. IMPRESSION: Unchanged from initial note. PLAN: No change from initial note. ANNMARIE ROMERO MD DR: KAMILLE/taya JOB#: [id number] / [id number]
--- NOTE | 2019-10-14 21:13 | NUR ---
IP: Notified [facility] regarding potential exposure to COVID-19 patient. Instructed that 2 week quarantine, monitoring of temperatures BID and monitor respiratory symptoms was indicated. Also instructed to follow up with health department.
== END 2019-10-12 10:54 | DRG 885 ==
LOC: ER 16:24 → GEROPSY 21:42
PROVIDERS: ADMIT Psychiatry & Neurology Psychiatry; ATTEND Psychiatry & Neurology Psychiatry
DX: F25.0 Schizoaffective disorder, bipolar type (principal); A69.20 Lyme disease, unspecified; F03.91 Unspecified dementia, unspecified severity, with behavioral disturbance; F15.10 Other stimulant abuse, uncomplicated; E03.9 Hypothyroidism, unspecified; E78.5 Hyperlipidemia, unspecified; F63.9 Impulse disorder, unspecified; F41.1 Generalized anxiety disorder; G40.909 Epilepsy, unspecified, not intractable, without status epilepticus; I10 Essential (primary) hypertension; I73.9 Peripheral vascular disease, unspecified; J43.9 Emphysema, unspecified; E66.9 Obesity, unspecified; E55.9 Vitamin D deficiency, unspecified; G89.29 Other chronic pain; G62.9 Polyneuropathy, unspecified; K21.9 Gastro-esophageal reflux disease without esophagitis; M19.90 Unspecified osteoarthritis, unspecified site; Z90.710 Acquired absence of both cervix and uterus; Z79.899 Other long term (current) drug therapy; Z68.37 Body mass index [BMI] 37.0-37.9, adult; Z88.8 Allergy status to other drugs, medicaments and biological substances; Z91.041 Radiographic dye allergy status
CPT/HCPCS: 36415; 80053; 80061; 80156; 80178; 81001; 82140; 82306; 82607; 83036; 83540; 83550; 83735; 84436; 84443; 84480; 85025; 85610; 86592; 87086; 87186; 93005; J1631; Q0162; Q0163; 97110; 97530; 97535; 99285-25